=== PATIENT | male | born 1935 | race Caucasian/White ===

== ENCOUNTER 2017-01-26 09:12 | Emergency (ER) | payer OTHER ==
[~2017-01-26] VITALS: Ht 172.7 cm; Wt 81.9 kg
[2017-01-26 09:14] VITALS: TEMP 36.8; Ht 172.7 cm; Wt 81.9 kg
[2017-01-26] MEDS ORDERED: METO25TA3 PO ×2 (10:14)
[2017-01-26] MEDS ORDERED: MULT-190 PO (10:14)
[2017-01-26] MEDS ORDERED: ASPI81TA28 PO (10:14)
[2017-01-26] MEDS ORDERED: POTA1TAB97 PO (10:14)
[2017-01-26] MEDS ORDERED: MULT-513 PO (10:14)
[2017-01-26] MEDS ORDERED: CETI10TA84 PO (10:14)
[2017-01-26] MEDS ORDERED: MOME6000 NAE (10:14)
[2017-01-26] MEDS ORDERED: CRS/10 PO (10:14)
[2017-01-26] MEDS ORDERED: VALS160T58 PO (10:15)
[2017-01-26] MEDS ORDERED: POTA20TA13 PO (10:40)
[2017-01-26 10:46] LABS: BUN/CREATININE RATIO 15.5 (10-20); CREATININE 0.95 mg/dl (0.60-1.40); POTASSIUM 4.2 mmol/L (3.5-5.1)
--- NOTE | 2017-01-26 10:50 | DIAGNOSTIC IMAGING REPORT ---
TWO VIEW CHEST CLINICAL HISTORY: Cough. FINDINGS: PA and lateral chest radiographs are obtained. No prior studies are available for comparison at the time of dictation. The patient is status post midline sternotomy. The heart is enlarged and there is atherosclerotic calcification of the thoracic aorta. The pulmonary vasculature is noncongested. Nonspecific interstitial thickening is noted. There is a nodular subpleural opacity in the left lower lung measuring up to 2.0 cm. The lungs are otherwise clear. No pleural effusion is seen. There is no pneumothorax. The skeletal structures are osteopenic. There are healed right-sided rib fractures. IMPRESSION: 1. Cardiac enlargement without radiographic evidence of congestive failure. 2. There is a 2 cm subpleural opacity in the left lower lung. Although this could represent a mild infectious/inflammatory pneumonitis, neoplasm is the diagnosis of exclusion. Correlation the dedicated chest CT is recommended for further interrogation. 3. The lungs are otherwise clear. No pleural effusion is seen. Electronically signed by: Norman Domingo M.D. 01/26/2017 10:48 AM Dictated Date/Time: 01/26/2017 10:46 AM
[2017-01-26 11:00] LABS: HEMATOCRIT 30.1 % (42-52); MEAN CORPUSCULAR HEMOGLOBIN 26.9 pg (25-34); MEAN CORPUSCULAR HGB CONC 34.9 g/dl (32-36); PLATELET COUNT 60 K/uL (130-400); RED BLOOD COUNT 3.91 M/uL (4.7-6.1); WHITE BLOOD COUNT 2.38 K/uL (4.8-10.8)
[2017-01-26 11:01] LABS: BASO % 0.4 %; BASO ABS # 0.01 K/uL (0-0.2); COMPLETE YES; IG% 0.8 %; LYMPH % 43.3 %; LYMPH ABS # 1.03 K/uL (1.2-3.4); MONO % 16.8 %; NEUT % 38.7 %; PLT ESTIMATE DECREASED; POIKILOCYTOSIS PRESENT
--- NOTE | 2017-01-26 11:53 | DIAGNOSTIC IMAGING REPORT ---
CT SCAN OF THE CHEST WITH IV CONTRAST CLINICAL HISTORY: Cough. Abnormal chest x-ray. COMPARISON STUDY: Chest x-ray dated 01/26/2017. TECHNIQUE: Following the IV administration of 94 cc of Optiray 320, CT scan of the thorax was performed from the thoracic inlet to the upper abdomen. Images are reviewed in the axial, sagittal, and coronal planes. IV contrast was administered without complication. CT DOSE: 459.18 mGycm FINDINGS: Thyroid: Imaged portions of the thyroid gland are normal in size and attenuation. Thoracic aorta: There is atherosclerotic calcification of the thoracic aorta is normal in caliber and demonstrates standard 3-vessel arch anatomy. No dissection is seen. 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 There is approximately 50% stenosis within the right common carotid artery below the thoracic inlet seen on image #44. Pulmonary vasculature: The pulmonary trunk is dilated, measuring 3.2 cm in diameter. This suggests pulmonary artery hypertension. There are no filling defects identified in the central pulmonary vessels to indicate pulmonary embolus. Note that this examination was not protocoled for evaluation of the pulmonary arteries. Heart: The patient is status post midline sternotomy. The heart is enlarged and without pericardial effusion. The coronary arteries are densely calcified. Lungs and pleural spaces: There is biapical scarring and mild emphysematous change. There is no lobar consolidation or pleural effusion. There is a 3.9 x 2.9 cm focus of groundglass opacification in the lingula seen on axial image #150. This corresponds to a round density seen by chest x-ray. An adjacent focus of groundglass opacification is seen in the lingula along the major fissure on image #131 and measures 2.0 cm. This appears to slightly tent the fissure. The right lung appears clear. The trachea and central airways are patent. Mediastinum: There are scattered subcentimeter mediastinal lymph nodes. These are not pathologically enlarged by size criteria. Willow: Clear. Axillae: There is no axillary lymphadenopathy. Upper abdomen: There are numerous calcified gallstones. A small hiatal hernia is observed. There is evidence of hepatic steatosis. Skeletal structures: The skeletal structures are osteopenic. Arthritic change is noted in the shoulders and thoracic spine. No lytic or blastic bony lesions are seen. IMPRESSION: 1. Cardiomegaly and mild emphysema with evidence of pulmonary artery hypertension. 2. There is an approximately 4 x 3 cm groundglass lesion identified in the lingula, and this corresponds to the abnormality seen by chest x-ray. An additional similar-appearing 2.0 cm groundglass adjacent lesion is seen in the lingula and appears to mildly retract the major fissure. Although these lesions could be on an infectious/inflammatory basis the appearance is concerning for low-grade neoplasm. A precautionary 2 month follow-up chest CT is recommended for reassessment. 3. The right lung appears clear. No pleural effusion is seen. 4. There is no mediastinal or hilar adenopathy. 5. Hepatic steatosis and cholelithiasis. Electronically signed by: Norman Domingo M.D. 01/26/2017 11:52 AM Dictated Date/Time: 01/26/2017 11:43 AM
--- NOTE | 2017-01-26 12:15 | EMERGENCY ROOM VISIT NOTE ---
ED Visit Note First contact with patient: 12:02 This Patient was discussed with the physician Otolaryngology Surgeon, Yesenia Bailey PA-C. The pertinent historical and physical exam findings were confirmed. I agree with the studies ordered and with the interpretations of these studies. I agree with the disposition and care plan.
[2017-01-26] MEDS ORDERED: CEFTRIAXONE SOD INJ 1 GM ADDVIAL IV STA (12:21)
[2017-01-26] MEDS ORDERED: LEVAQUIN 750MG / 150ML D5W IV STA (12:44)
[2017-01-26] MEDS ORDERED: LEVO-18 PO (13:13)
--- NOTE | 2017-01-26 13:14 | EMERGENCY ROOM VISIT NOTE ---
History First contact with patient: 09:35 Chief Complaint: COUGH Stated Complaint: COUGH X 2 WKS Nursing Triage Summary: Dry, hacky cough for approx 2 weeks, saw FMD last week, Z-lucas and cough medicine with no relief. Has to sleep upright in chair. Dyspneic on exertion. Denies CP. Hx of CABG and low platelets History of Present Illness The patient is a 81 year old male who presents to the Emergency Room with complaints of a dry, hacking cough for the past 2 weeks. The patient has had a persistent cough which is worse when he lays down for bed. He was seen by his primary care provider last week and prescribed Robitussin with codeine and a Z- Lucas. He finished this antibiotic without any relief. The patient is a former smoker and quit over 35 years ago. The patient states it does become hard to catch his breath when he has a coughing fit. He also occasionally has shortness of breath with walking around. He denies any earaches, sore throat, chest pain, or vomiting. He denies any fevers/chills. The patient has a history of a coronary artery bypass graft and pancytopenia. Review of Systems A complete 10 point review of systems was reviewed with the patient with pertinent positives and negatives as per history of present illness. All else were negative. Social History Smoking Status: Former Smoker Current/Historical Medications Scheduled Aspirin (Aspirin Ec), 81 MG PO WK Cetirizine (Zyrtec), 10 MG PO DAILY Levofloxacin (Levaquin), 1 TAB PO DAILY Metoprolol Succinate (Toprol Xl), 25 MG PO HS Metoprolol Succinate (Toprol Xl), 12.5 MG PO QAM Mometasone Furoate (Nasal) (Mometasone Furoate), 2 SPRAYS ISIS DAILY Multivitamins/Minerals (Mvi With Minerals), 1 TAB PO DAILY Ocuvite Preservision (Ocuvite Preservision), 1 TAB PO DAILY Potassium Chloride Microencaps (Potassium Chloride Er), 20 MEQ PO BID Rosuvastatin Calcium (Crestor), 10 MG PO HS Valsartan/Hctz (Diovan Hct 160MG/12.5MG), 1 TAB PO DAILY Allergies Coded Allergies: CHAZ Inhibitors (Unverified Allergy, Severe, COUGH, 01/26/17) Penicillins (Verified Allergy, Severe, HIVES, 01/26/17) Patient reported red, itchy rash that manifested within 1 hour of receiving an injection of Penicillin many many years ago. Denied receiving any penicillin or cephalosporin since that time. Tetanus Toxoid (Unverified Allergy, Severe, SWELLING, 01/26/17) Physical Exam Vital Signs Date Time Temp Pulse Resp B/P Pulse Ox O2 Delivery O2 Flow Rate FiO2 01/26/17 13:54 65 16 159/73 96 Room Air 01/26/17 12:32 60 16 179/101 96 Room Air 01/26/17 10:51 66 16 176/80 96 Room Air 01/26/17 09:53 94 Room Air 01/26/17 09:14 36.8 70 18 187/81 96 Room Air Physical Exam VITALS: Vitals are noted on the nurse's note and reviewed by myself. Vital signs stable. GENERAL: This is an 81-year-old female, in no acute distress, nondiaphoretic, well-developed well-nourished. HEENT: Normocephalic. PERRLA. EOMI. Nares patent. Mucous membranes moist. Neck is supple without nuchal rigidity. HEART: Regular rate and rhythm without murmurs gallops or rubs. LUNGS: Clear to auscultation bilaterally without wheezes, rales or rhonchi. NEURO: Patient was alert and oriented to person place and time. Medical Decision & Procedures ER Provider Diagnostic Interpretation: TWO VIEW CHEST IMPRESSION: 1. Cardiac enlargement without radiographic evidence of congestive failure. 2. There is a 2 cm subpleural opacity in the left lower lung. Although this could represent a mild infectious/inflammatory pneumonitis, neoplasm is the diagnosis of exclusion. Correlation the dedicated chest CT is recommended for further interrogation. 3. The lungs are otherwise clear. No pleural effusion is seen. CT SCAN OF THE CHEST WITH IV CONTRAST IMPRESSION: 1. Cardiomegaly and mild emphysema with evidence of pulmonary artery hypertension. 2. There is an approximately 4 x 3 cm groundglass lesion identified in the lingula, and this corresponds to the abnormality seen by chest x-ray. An additional similar-appearing 2.0 cm groundglass adjacent lesion is seen in the lingula and appears to mildly retract the major fissure. Although these lesions could be on an infectious/inflammatory basis the appearance is concerning for low-grade neoplasm. A precautionary 2 month follow-up chest CT is recommended for reassessment. 3. The right lung appears clear. No pleural effusion is seen. 4. There is no mediastinal or hilar adenopathy. 5. Hepatic steatosis and cholelithiasis. Laboratory Results 01/26/17 10:20 Red Blood Count 3.91, Mean Corpuscular Volume 77.0, Mean Corpuscular Hemoglobin 26.9, Mean Corpuscular Hemoglobin Concent 34.9, Neutrophils (%) (Auto) 38.7, Lymphocytes (%) (Auto) 43.3, Monocytes (%) (Auto) 16.8, Eosinophils (%) (Auto) 0.0, Basophils (%) (Auto) 0.4, Neutrophils # (Auto) 0.92, Lymphocytes # (Auto) 1.03, Monocytes # (Auto) 0.40, Eosinophils # (Auto) 0.00, Basophils # (Auto) 0.01 01/26/17 10:20 Test 01/26/17 10:20 White Blood Count 2.38 K/uL (4.8-10.8) Red Blood Count 3.91 M/uL (4.7-6.1) Hemoglobin 10.5 g/dL (14.0-18.0) Hematocrit 30.1 % (42-52) Mean Corpuscular Volume 77.0 fL (80-100) Mean Corpuscular Hemoglobin 26.9 pg (25-34) Mean Corpuscular Hemoglobin Concent 34.9 g/dl (32-36) Platelet Count 60 K/uL (130-400) Neutrophils (%) (Auto) 38.7 % Lymphocytes (%) (Auto) 43.3 % Monocytes (%) (Auto) 16.8 % Eosinophils (%) (Auto) 0.0 % Basophils (%) (Auto) 0.4 % Neutrophils # (Auto) 0.92 K/uL (1.4-6.5) Lymphocytes # (Auto) 1.03 K/uL (1.2-3.4) Monocytes # (Auto) 0.40 K/uL (0.11-0.59) Eosinophils # (Auto) 0.00 K/uL (0-0.5) Basophils # (Auto) 0.01 K/uL (0-0.2) RDW Standard Deviation 42.7 fL (36.4-46.3) RDW Coefficient of Variation 15.4 % (11.5-14.5) Immature Granulocyte % (Auto) 0.8 % Immature Granulocyte # (Auto) 0.02 K/uL (0.00-0.02) Hypogranular Neutrophils 1+ Platelet Estimate DECREASED Poikilocytosis PRESENT Anion Gap 7.0 mmol/L (3-11) Est Creatinine Clear Calc Drug Dose 60.0 ml/min Estimated GFR () 87.3 Estimated GFR (Non- 75.3 BUN/Creatinine Ratio 15.5 (10-20) Calcium Level 9.0 mg/dl (8.5-10.1) Total Bilirubin 0.6 mg/dl (0.2-1) Aspartate Amino Transf (AST/SGOT) 27 U/L (15-37) Alanine Aminotransferase (ALT/SGPT) 31 U/L (12-78) Alkaline Phosphatase 115 U/L (45-117) Total Protein 8.2 gm/dl (6.4-8.2) Albumin 4.0 gm/dl (3.4-5.0) Globulin 4.2 gm/dl (2.5-4.0) Albumin/Globulin Ratio 1.0 (0.9-2) Medications Administered Medications (Trade) Dose Ordered Sig/Alexandrea Route Start Time Stop Time Status Last Admin Dose Admin Levofloxacin (Levaquin / D5W) 750 mg NOW STAT IV 01/26/17 12:44 01/26/17 12:46 DC 01/26/17 13:01 750 MG Medical Decision Differential diagnosis includes pneumonia, COPD, neoplasm, among others. The patient is an 81-year-old male who presents today complaining of call for the past 2 weeks. Labs revealed a pancytopenia and neutropenia. Records were obtained from the patient's most recent hematology visit and his labs today are similar to previous. Chest x-ray did show what appears to be an inflammatory process within the left middle lobe. However, CT scan of the chest was recommended for further clarification. CT was performed and confirmed these findings. I think this is likely an inflammatory process, although the patient will certainly need close follow-up with his primary care provider for repeat testing. The patient's vital signs were within normal limits and oxygen saturations were around 96% on room air throughout his stay. I did offer the patient admission but he prefers to be discharged home. Will be placed on Levaquin at the recommendation of the ED pharmacist. He was given dose of IV Levaquin prior to discharge. He should return here for any worsening symptoms or new/concerning symptoms. The patient was independently evaluated by Dr. Kaur, ED attending physician, who agreed with my assessment and treatment plan. Based on the patient's presentation and work up, I feel the patient is stable for outpatient treatment. The patient was educated to return to the emergency department for any worsening of their current condition or new/concerning symptoms. The patient will follow up with his primary care provider this week. Impression Primary Impression: Lingular pneumonia Additional Impression: Cough Departure Information Dispostion Home / Self-Care Condition GOOD Prescriptions Levofloxacin (LEVAQUIN) 750 Mg Tab 1 TAB PO DAILY for 7 Days, #7 TAB Prov: Yesenia Bailey .JOANNE 01/26/17 Referrals Hoang Ramos D.O. (PCP) Forms HOME CARE DOCUMENTATION FORM, IMPORTANT VISIT INFORMATION Patient Instructions My [facility] Additional Instructions You were prescribed Levaquin to be taken daily for 7 days. This is an antibiotic. All antibiotics have the potential to cause diarrhea. Stop this medication and contact a medical provider if you were to develop any significant adverse side effects including: wheezing, shortness of breath, passing out, vomiting, or a diffuse rash. Always take antibiotics as directed and COMPLETE the ENTIRE course regardless of the improvement of your symptoms. You need to follow-up with your primary care within 48 hours. You should have a repeat chest x-ray after the course of antibiotics. You also may need a repeat chest CT scan in a few months. Return to the emergency Department sooner if there is worsening shortness of breath, fevers or any other new/concerning symptoms. Problem Qualifiers
[2017-01-26 13:54] VITALS: BP 159/73; PULSE 65; O2SAT 96
== END 2017-01-26 15:05 | disposition home or self-care (01) ==
LOC: C.EDB 09:13
DX: J18.8 Other pneumonia, unspecified organism (principal); R05 Cough; Z79.82 Long term (current) use of aspirin; Z79.899 Other long term (current) drug therapy; Z87.891 Personal history of nicotine dependence

== ENCOUNTER → 2017-02-14 | Outpatient (CLI) | payer OTHER ==
[~2017-02-14] MED LIST: ASPI81TA28 PO; CETI10TA84 PO; CRS/10 PO; METO25TA3 PO; MOME6000 NAE; MULT-190 PO; MULT-513 PO; POTA20TA13 PO; VALS160T58 PO
--- NOTE | 2017-02-14 12:26 | DIAGNOSTIC IMAGING REPORT ---
VIDEO SWALLOW HISTORY: Pneumonia. Assess for aspiration. TECHNIQUE: Video fluoroscopic evaluation of swallowing was performed in the AP and lateral projections by the speech pathology staff. The patient is fed nectar-thick and thin liquid barium, a barium coated wafer, and barium pudding. FLUOROSCOPY TIME: 2.1 minutes. A cine loop submitted. COMPARISON STUDY: None. FINDINGS: There is normal hyoid excursion and epiglottic deflection. There is a single episode of penetration with the thin liquid barium. However, no evidence for aspiration identified. IMPRESSION: 1. No aspiration identified. 2. Please see the speech pathologist report for detailed findings and recommendations. Electronically signed by: Florian Hernandez M.D. 02/14/2017 12:25 PM Dictated Date/Time: 02/14/2017 12:23 PM
--- NOTE | 2017-02-14 13:15 | SWALLOWING EVALUATION ---
HISTORY: This 81 year-old man, from, was referred for a VFSS at [facility] in order to rule out aspiration. He reports that he feels as though he coughs at times when he takes large bites and eats quickly. The patient has a PMH significant for a cough that was persistent for 2-3 weeks which worsens when in the supine position. Chest CT was done on 01/26/17 showing two ground glass lesions in the left lung suspicious for neoplasm, but could be infectious process. Currently the patient's diet level is regular. PROCEDURE: The patient was seen in the Radiology Department of [facility] for the VFSS. Cursory examination of the oral cavity revealed upper and lower dentures. Movement of the articulators was WNL. The patient was seated on a stool and was viewed in both the Anterior-Posterior (A-P) and Lateral planes. Volitional phonation exercises completed in the A-P plane revealed bilateral vocal fold movement and vocal intensity within functional limits. In the lateral plane, the patient was given the following boluses: 1 tsp. thin liquid barium x 2, single swallow thin liquid barium self-presented from a cup, sequential swallows of thin liquid barium self-presented from a cup, 1 tsp. nectar-thick liquid barium, single swallow nectar-thick liquid barium self-presented from a cup, 1 tsp. barium pudding, and 1 club cracker with barium paste. The patient was then repositioned into the A-P plane and given the following boluses: 1 tsp. nectar-thick liquid barium and 1 tsp. barium pudding. RESULTS: Oral Stage: There was no labial escape evident during the oral phase of the swallow. Tongue has control of the bolus between the tongue and the palate. Masticate was mildly slow. Patient displayed delayed initiation of tongue motion, but once started the bolus was swallowed normally. There was residue in the oral cavity along the tongue and palate after the swallow. Pharyngeal swallow was slightly delayed with the bolus head in the valleculae when swallow was initiated. Pharyngeal Stage: Soft palate elevation was normal with no bolus escaping between the soft palate and pharyngeal wall. Laryngeal elevation displayed partial superior movement of thyroid cartilage. Hyoid excursion showed partial anterior movement. The epiglottis showed completed inversion. The laryngeal vestibule showed incomplete closure at the height of the swallow, evident in an occurrence of penetration of thin liquids. The pharyngeal stripping wave was complete. A/P view showed complete pharyngeal contraction. Pharyngoesophageal segment opening showed partial distension with partial obstruction of flow. Tongue base showed trace amount of contrast between the base and posterior pharyngeal wall. Residue remained in the pyriform sinuses after the swallow. There was no evidence of aspiration during the study. Laryngeal penetration noted was due to the patient's delayed swallow. Retention in the pyriforms cleared with a dry swallow or a liquid wash. Esophageal Stage: Patient showed complete clearance of the bolus through the esophagus. SUMMARY/RECOMMENDATIONS: This patient presents with normal oral-pharyngeal swallowing. The patient does not present with s/s esophageal dysfunction. The patient's delayed swallow, reduction of hyolaryngeal movement and hyoid elevation is considered to be within normal limits for the patient's age. The following is recommended: 1. Regular diet. 2. Patient should alternate bites of food with sips of liquid to help clear bolus through the pharyngoesophageal segment opening. A summary of the results and recommendations was discussed with patient and understanding was verbalized with the patient immediately following the study. Thank you for referral of this patient. Please contact me at if any additional information is needed. Katerina Jalloh B.A. Corporate Security Manager Clinician
--- NOTE | 2017-02-21 10:12 | CODING QUERY MEDICAL NECESSITY ---
SUPPORTING DIAGNOSIS NEEDED A supporting diagnosis is required for the test/procedure performed on this patient in order for us to be reimbursed by the patient's insurance. Please provide a supporting diagnosis for the following test/procedure listed below next to the test name along with your signature. *If there is no additional diagnosis for this patient that would support the following test/procedure please document that below next to the test/procedure. Test(s)/Procedure(s) that require a supporting diagnosis: * VIDEO SWALLOW DIAGNOSIS: Provider Signature: Date: Thank you Katie [employer] Information Management Once completed, please kindly fax back to [phone] For questions please call [phone]
== END | disposition home or self-care (01) ==
LOC: C.RAD 11:10
PROVIDERS: ATTEND Family Medicine
DX: J18.9 Pneumonia, unspecified organism (principal)

== ENCOUNTER → 2017-03-24 | Outpatient (CLI) | payer OTHER ==
--- NOTE | 2017-03-24 09:45 | DIAGNOSTIC IMAGING REPORT ---
(CHEST) THORAX WITHOUT CLINICAL HISTORY: R91.8 Pulmonary nodules COMPARISON STUDY: 01/26/2017 CT DOSE: 283.00 mGy.cm TECHNIQUE: CT of the thorax was performed from the thoracic inlet to the lung bases. Images are reviewed in the axial, sagittal, and coronal planes. IV contrast was not administered for this examination. A dose lowering technique was utilized adhering to the principles of ALARA. FINDINGS: Thyroid: Imaged portions of the thyroid gland are normal in appearance. Thoracic aorta: The thoracic aorta is normal in course and caliber, noting standard 3 vessel arch anatomy. Heart: There are coronary artery calcifications present. Lungs and pleural spaces: There is interval decrease in the size of a mixed solid and groundglass lingular opacity currently measuring 2 cm. Adjacent to this is a second groundglass opacity measuring 1 cm. This is also smaller than the prior study. The interval decrease in the size of these lesions, strongly favor a resolving inflammatory process. A 6 month follow-up CT scan would seem prudent. No new or enlarging pulmonary nodules are visualized. Mediastinum: There is a paratracheal lymph node the upper limits of normal in size. This remains unchanged the prior study Willow: There is no evidence of pathologic hilar adenopathy given the limitations of a noncontrast study Axilla: Clear. Upper abdomen: Cholelithiasis Skeletal structures: There are no lytic or blastic osseous lesions. IMPRESSION: 1. Interval decrease in the size of the lingular airspace opacities. This strongly favors a resolving inflammatory process. A 6 month follow-up CT scan would seem prudent. Electronically signed by: Prabhjot Melgoza M.D. 03/24/2017 9:44 AM Dictated Date/Time: 03/24/2017 9:38 AM
== END | disposition home or self-care (01) ==
LOC: C.CTS 09:29
PROVIDERS: ATTEND Physician Assistant
DX: R91.8 Other nonspecific abnormal finding of lung field (principal)

== ENCOUNTER 2017-12-30 10:18 | Emergency (ER) | payer OTHER ==
[~2017-12-30] VITALS: Ht 172.7 cm; Wt 79.7 kg
[~2017-12-30 10:18] MED LIST changes: -ASPI81TA28 PO; -METO25TA3 PO; +METO25TA4 PO
[2017-12-30 10:19] VITALS: TEMP 37.4; Ht 172.7 cm; Wt 79.7 kg
[2017-12-30] MEDS ORDERED: SODIUM CHLORIDE 0.9% 1000ML 1,000 ML IV STA (10:53)
[2017-12-30 11:44] LABS: ALBUMIN 3.6 gm/dl (3.4-5.0); CALCIUM 8.9 mg/dl (8.5-10.1); CREATININE 1.11 mg/dl (0.60-1.40); POTASSIUM 3.3 mmol/L (3.5-5.1)
[2017-12-30 11:47] LABS: TOTAL PROTEIN 7.8 gm/dl (6.4-8.2)
[2017-12-30 11:57] LABS: HEMATOCRIT 25.7 % (42-52); HEMOGLOBIN 8.9 g/dL (14.0-18.0); MEAN CELL VOLUME 74.5 fL (80-100); MEAN CORPUSCULAR HEMOGLOBIN 25.8 pg (25-34); MEAN CORPUSCULAR HGB CONC 34.6 g/dl (32-36); PLATELET COUNT 36 K/uL (130-400); RED CELL DISTRIBUTION WIDTH CV 17.7 % (11.5-14.5); RED CELL DISTRIBUTION WIDTH SD 46.8 fL (36.4-46.3)
[2017-12-30 11:58] LABS: IG# 0.05 K/uL (0.00-0.02); LYMPH % 23.4 %; LYMPH ABS # 0.75 K/uL (1.2-3.4); MONO % 16.9 %; MONO ABS # 0.54 K/uL (0.11-0.59); NEUT % 58.1 %; NEUT ABS # 1.86 K/uL (1.4-6.5)
--- NOTE | 2017-12-30 12:16 | DIAGNOSTIC IMAGING REPORT ---
ABDOMEN 2VIEW W/PA CHEST RTN HISTORY: 82 years-old Male ABDOMINAL PAIN/GI acute generalized abdominal pain with diarrhea COMPARISON: Chest CT 03/24/2017, chest radiograph 01/26/2017 TECHNIQUE: PA view of the chest with erect and supine views of the abdomen FINDINGS: Cardiomediastinal and hilar silhouettes are within normal limits. Atherosclerosis of the aorta. Prior sternotomy. There is mild biapical pleural-parenchymal scarring without pneumothorax, pleural effusion, focal airspace consolidation or overt pulmonary edema. Degenerative changes are seen within the shoulders and spine. Healed remote fracture deformity of the posterolateral right eighth rib. Cholelithiasis. Moderate gaseous distention of the colon with loops measuring up to 8.5 cm transversely. There is no evidence of small bowel obstruction, pneumatosis or pneumoperitoneum. No definite urolith identified, however the renal shadows are obscured by bowel gas. Brachytherapy seeds of the prostate. Calcifications of the pelvis suggest phleboliths. Degenerative changes of the spine, pelvis and hips. IMPRESSION: 1. Moderate gaseous distention of the colon without evidence of small bowel obstruction. These findings may reflect colonic ileus. 2. Cholelithiasis. 3. No acute process of the chest. The above report was generated using voice recognition software. It may contain grammatical, syntax or spelling errors. Electronically signed by: Vitaly Clement M.D. 12/30/2017 12:15 PM Dictated Date/Time: 12/30/2017 12:12 PM
[2017-12-30] MEDS ORDERED: POTASSIUM CHLORIDE 10 MEQ TABCR PO STA (12:53)
--- NOTE | 2017-12-30 12:53 | EMERGENCY ROOM VISIT NOTE ---
History Report prepared by Yani: Tiffanie Coello Under the Supervision of: Dr. Dwaine Rdz D.O. First contact with patient: 10:47 Chief Complaint: DIARRHEA Stated Complaint: DIARRHEA History of Present Illness The patient is a 82 year old male who presents to the Emergency Room with complaints of persistent diarrhea that began 13 days ago. His wive reports that on the of the month he was diagnosed with a head cold. She states that 4 days later, the patient began experiencing diarrhea. On the , he saw his PCP , who told him that his potassium was low. His PCP recommended the patient come to the Emergency Department to be further evaluation of his diarrhea and dehydration.The patient reports some left sided abdominal pain, noting that he has been taking Pepto Bismol to relieve his symptoms. Source of History: patient Onset: 13 days ago Position: other (gastrointestinal) Quality: other (diarrhea) Timing: other (persistent) Associated Symptoms: + abdominal pain (left sided) Review of Systems See HPI for pertinent positives & negatives. A total of 10 systems reviewed and were otherwise negative. Past Medical & Surgical Medical Problems: (1) Hypercholesteremia (2) Hypertension (3) Neutropenia (4) Pancytopenia Family History Patient reports no known family medical history. Social History Smoking Status: Former Smoker Smokeless Tobacco Use: Unknown Alcohol Use: none Drug Use: none Marital Status: Housing Status: lives with significant other Occupation Status: retired Current/Historical Medications Scheduled Cetirizine (Zyrtec), 10 MG PO DAILY Metoprolol Succinate (Toprol Xl), 25 MG PO HS Metoprolol Succinate (Toprol Xl), 12.5 MG PO QAM Mometasone Furoate (Nasal) (Mometasone Furoate), 2 SPRAYS ISIS DAILY Multivitamins/Minerals (Mvi With Minerals), 1 TAB PO DAILY Ocuvite Preservision (Ocuvite Preservision), 1 TAB PO DAILY Potassium Chloride Microencaps (Potassium Chloride Er), 20 MEQ PO BID Rosuvastatin Calcium (Crestor), 10 MG PO HS Valsartan/Hctz (Diovan Hct 160MG/12.5MG), 1 TAB PO DAILY Allergies Coded Allergies: CHAZ Inhibitors (Unverified Allergy, Severe, COUGH, 12/24/17) Penicillins (Verified Allergy, Severe, HIVES, 12/24/17) Patient reported red, itchy rash that manifested within 1 hour of receiving an injection of Penicillin many many years ago. Denied receiving any penicillin or cephalosporin since that time. Tetanus Toxoid (Unverified Allergy, Severe, SWELLING, 12/24/17) Erythromycin (Unverified Adverse Reaction, Severe, DIARRHEA, 12/30/17) Physical Exam Vital Signs Date Time Temp Pulse Resp B/P (MAP) Pulse Ox O2 Delivery O2 Flow Rate FiO2 12/30/17 13:12 71 18 153/72 96 Room Air 12/30/17 12:29 64 16 136/80 Room Air 12/30/17 12:08 73 18 181/65 99 Room Air 12/30/17 10:19 37.4 66 18 146/61 97 Room Air Physical Exam CONSTITUTIONAL/VITAL SIGNS: Reviewed / noted above. GENERAL: Non-toxic in appearance. INTEGUMENTARY: Warm, dry, and [place]. HEAD: Normocephalic. EYES: without scleral icterus or trauma. ENT/OROPHARYNX: clear and moist. LYMPHADENOPATHY/NECK: Is supple without lymphadenopathy or meningismus. RESPIRATORY: Lungs clear and equal. CARDIOVASCULAR: Regular rate and rhythm. GI/ABDOMEN: Bowel sounds are tinkling and distant. Soft and nontender. No organomegaly or pulsatile mass. No rebound or guarding. EXTREMITIES: Warm and well perfused. BACK: No CVA tenderness. NEUROLOGICAL: Intact without focal deficits. PSYCHIATRIC: normal affect. MUSCULOSKELETAL: Normally developed with good muscle tone. Medical Decision & Procedures ER Provider Diagnostic Interpretation: Radiology results as stated below per my review and radiologist interpretation: ABDOMEN 2VIEW W/PA CHEST RTN HISTORY: 82 years-old Male ABDOMINAL PAIN/GI acute generalized abdominal pain with diarrhea COMPARISON: Chest CT 03/24/2017, chest radiograph 01/26/2017 TECHNIQUE: PA view of the chest with erect and supine views of the abdomen FINDINGS: Cardiomediastinal and hilar silhouettes are within normal limits. Atherosclerosis of the aorta. Prior sternotomy. There is mild biapical pleural-parenchymal scarring without pneumothorax, pleural effusion, focal airspace consolidation or overt pulmonary edema. Degenerative changes are seen within the shoulders and spine. Healed remote fracture deformity of the posterolateral right eighth rib. Cholelithiasis. Moderate gaseous distention of the colon with loops measuring up to 8.5 cm transversely. There is no evidence of small bowel obstruction, pneumatosis or pneumoperitoneum. No definite urolith identified, however the renal shadows are obscured by bowel gas. Brachytherapy seeds of the prostate. Calcifications of the pelvis suggest phleboliths. Degenerative changes of the spine, pelvis and hips. IMPRESSION: 1. Moderate gaseous distention of the colon without evidence of small bowel obstruction. These findings may reflect colonic ileus. 2. Cholelithiasis. 3. No acute process of the chest. The above report was generated using voice recognition software. It may contain grammatical, syntax or spelling errors. Electronically signed by: Vitaly Clement M.D. 12/30/2017 12:15 PM Dictated Date/Time: 12/30/2017 12:12 PM Laboratory Results 12/30/17 11:10 Red Blood Count 3.45, Mean Corpuscular Volume 74.5, Mean Corpuscular Hemoglobin 25.8, Mean Corpuscular Hemoglobin Concent 34.6, Neutrophils (%) (Auto) 58.1, Lymphocytes (%) (Auto) 23.4, Monocytes (%) (Auto) 16.9, Eosinophils (%) (Auto) 0.0, Basophils (%) (Auto) 0.0, Neutrophils # (Auto) 1.86, Lymphocytes # (Auto) 0.75, Monocytes # (Auto) 0.54, Eosinophils # (Auto) 0.00, Basophils # (Auto) 0.00 12/30/17 11:10 Test 12/30/17 11:10 12/30/17 12:10 White Blood Count 3.20 K/uL (4.8-10.8) Red Blood Count 3.45 M/uL (4.7-6.1) Hemoglobin 8.9 g/dL (14.0-18.0) Hematocrit 25.7 % (42-52) Mean Corpuscular Volume 74.5 fL (80-100) Mean Corpuscular Hemoglobin 25.8 pg (25-34) Mean Corpuscular Hemoglobin Concent 34.6 g/dl (32-36) Platelet Count 36 K/uL (130-400) Neutrophils (%) (Auto) 58.1 % Lymphocytes (%) (Auto) 23.4 % Monocytes (%) (Auto) 16.9 % Eosinophils (%) (Auto) 0.0 % Basophils (%) (Auto) 0.0 % Neutrophils # (Auto) 1.86 K/uL (1.4-6.5) Lymphocytes # (Auto) 0.75 K/uL (1.2-3.4) Monocytes # (Auto) 0.54 K/uL (0.11-0.59) Eosinophils # (Auto) 0.00 K/uL (0-0.5) Basophils # (Auto) 0.00 K/uL (0-0.2) RDW Standard Deviation 46.8 fL (36.4-46.3) RDW Coefficient of Variation 17.7 % (11.5-14.5) Immature Granulocyte % (Auto) 1.6 % Immature Granulocyte # (Auto) 0.05 K/uL (0.00-0.02) Platelet Estimate SIGNIFIC DECREASED Giant Platelets 2+ Poikilocytosis PRESENT Microcytosis PRESENT Ovalocytes 1+ Schistocytes 1+ Anion Gap 4.0 mmol/L (3-11) Est Creatinine Clear Calc Drug Dose 50.5 ml/min Estimated GFR () 71.8 Estimated GFR (Non- 61.9 BUN/Creatinine Ratio 15.5 (10-20) Calcium Level 8.9 mg/dl (8.5-10.1) Total Bilirubin 0.9 mg/dl (0.2-1) Direct Bilirubin 0.3 mg/dl (0-0.2) Aspartate Amino Transf (AST/SGOT) 19 U/L (15-37) Alanine Aminotransferase (ALT/SGPT) 24 U/L (12-78) Alkaline Phosphatase 93 U/L (45-117) Total Protein 7.8 gm/dl (6.4-8.2) Albumin 3.6 gm/dl (3.4-5.0) Urine Color YELLOW Urine Appearance CLEAR (CLEAR) Urine pH 5.5 (4.5-7.5) Urine Specific [place] 1.010 (1.000-1.030) Urine Protein NEG (NEG) Urine Glucose (UA) NEG (NEG) Urine Ketones NEG (NEG) Urine Occult Blood NEG (NEG) Urine Nitrite NEG (NEG) Urine Bilirubin NEG (NEG) Urine Urobilinogen NEG (NEG) Urine Leukocyte Esterase NEG (NEG) Urine WBC (Auto) 0 /hpf (0-5) Urine RBC (Auto) 0-4 /hpf (0-4) Urine Hyaline Casts (Auto) 1-5 /lpf (0-5) Urine Epithelial Cells (Auto) 0-5 /lpf (0-5) Urine Bacteria (Auto) NEG (NEG) Date/Time Source Procedure Growth Status 12/30/17 11:18 Stool C.difficile Toxin B Gene (PCR) - Final No C. difficile toxin B gene detected Complete Laboratory results as stated above per my review. Medications Administered Medications (Trade) Dose Ordered Sig/Alexandrea Route Start Time Stop Time Status Last Admin Dose Admin Sodium Chloride 1,000 ml @ 999 mls/hr Q1H1M STAT IV 12/30/17 10:53 12/30/17 11:53 DC 12/30/17 11:23 999 MLS/HR Potassium Chloride (Klor-Con M10) 40 meq NOW STAT PO 12/30/17 12:53 12/30/17 12:56 DC 12/30/17 13:12 40 MEQ ED Course 1048: Previous medical records were reviewed. The patient was evaluated in room C5. A complete history and physical examination was performed. 1053: Ordered Sodium Chloride 1000ml @ 999 mls/hr IV. 1253: Ordered Potassium Chloride 40meq PO. 1308: On reevaluation, the patient is resting. I discussed the results and findings with the patient. He verbalized agreement of the treatment plan. The patient was discharged home. Medical Decision Differential diagnosis: Etiologies such as gastroenteritis, food borne illness, infections, appendicitis , diverticulitis, inflammatory bowel disease, obstruction, GI bleed, biliary pathology, as well as others were entertained. This is an 82-year-old male who presents to the ED with a chief complaint of diarrhea. The patient's diarrhea started on the , 13 days ago. It started after taking 4 days worth of Zithromax for an upper respiratory infection. The patient was seen in the emergency department on the . At that time his stool cultures and C. difficile was negative. The patient has continued to have diarrhea despite using Imodium and Pepto-Bismol. The patient also was found to have pancytopenia and was following up with Dr. Spivey. The patient has some occasional bowel cramps but otherwise has no significant symptoms. He had several episodes of diarrhea overnight and once this morning. The patient came to the ED for reevaluation because of the continued diarrhea. His physical exam revealed some distant tinkling bowel sounds but otherwise was soft and nontender. He is in no distress. His hemoglobin is 8.9. On the it was 9.2. He did receive Procrit [address] Spivey. This is near his baseline. His potassium today is 3.3. Urine did not show infection and C. difficile was negative. Chest x-ray did not show acute process. Abdominal x- ray reveals gaseous distention of the colon suggesting colonic ileus. The patient was given some IV fluids and oral potassium. He did not have any diarrhea while here. He was told the results. I did recommend following up with a GI specialist for further evaluation. He is felt to be stable for discharge and outpatient follow-up. GI referral provided. Medication Reconcilliation Current Medication List: was personally reviewed by me Blood Pressure Screening Patient's blood pressure: Normal blood pressure Blood pressure disposition: Did not require urgent referral Impression Primary Impression: Diarrhea Scribe Attestation The scribe's documentation has been prepared under my direction and personally reviewed by me in its entirety. I confirm that the note above accurately reflects all work, treatment, procedures, and medical decision making performed by me. Departure Information Dispostion Home / Self-Care Referrals Hoang Ramos D.O. (PCP) Iraj Dietrich M.D. Forms HOME CARE DOCUMENTATION FORM, IMPORTANT VISIT INFORMATION, WORK / SCHOOL INSTRUCTIONS Patient Instructions Diarrhea, My [facility] Additional Instructions Follow-up with Dr. Dietrich, GI specialist, from [facility]. Call today or Tuesday for appointment.
[2017-12-30 13:53] VITALS: BP 148/63; PULSE 74; O2SAT 94
== END 2017-12-30 13:54 | disposition home or self-care (01) ==
LOC: C.EDB 10:18 → C.EDC 13:54
DX: R19.7 Diarrhea, unspecified (principal); E78.00 Pure hypercholesterolemia, unspecified; I10 Essential (primary) hypertension; Z79.899 Other long term (current) drug therapy; Z87.891 Personal history of nicotine dependence; Z88.0 Allergy status to penicillin; Z88.7 Allergy status to serum and vaccine; Z88.8 Allergy status to other drugs, medicaments and biological substances

== ENCOUNTER → 2018-03-27 | Outpatient (CLI) | payer OTHER ==
[~2018-03-27] MED LIST changes: +[UNRECOGNIZED DRUG - CODE] SC
--- NOTE | 2018-03-27 11:43 | DIAGNOSTIC IMAGING REPORT ---
(CHEST) THORAX WITHOUT CT DOSE: 168.38 mGy.cm CLINICAL HISTORY: 82 years-old Male with R91.8 Pulmonary nodulesappt 03-27-18 @12:00 E X0D E [id number]. Follow-up study in a patient with history of pulmonary nodules TECHNIQUE: Multiaxial CT images of the chest were performed without contrast. A dose lowering technique was utilized adhering to the principles of ALARA. COMPARISON: CT chest 03/24/2017. FINDINGS: No dominant thyroid nodule identified. Mildly prominent paratracheal and subcarinal lymph nodes are again seen measuring up to 7 mm. These are likely reactive. Heart is mildly enlarged. Coronary arterial, mitral and aortic annular calcifications are present. Capillary muscle calcifications of the left ventricle are also seen. Prior median sternotomy with CABG. Moderate atherosclerosis of the thoracic aorta without aneurysm. Mild dilation of the main pulmonary artery measuring up to 3.3 cm transversely may reflect pulmonary arterial hypertension. No pneumothorax or pleural effusion. There is improved aeration of the inferior segment lingula with resolution of the previously described subsegmental airspace opacities. Subsegmental groundglass opacities of the bilateral lung bases suggest atelectasis. Minimal subsegmental atelectasis/scarring at the lateral basal segment left lower lobe adjacent to the major fissure suggesting pleural parenchymal scarring. There are no suspicious pulmonary nodules or masses. Ill-defined subsegmental groundglass opacities of the right upper lobe, image 59 series 5 appear new. Evaluation of the lung parenchyma is limited secondary to respiratory motion. Ill-defined ground glass opacities are also noted about the lateral segment right middle lobe. Central airways are patent. Gaseous distention of the colon. No acute process of the imaged upper abdomen. Cholelithiasis with contracted gallbladder. Soft tissues are within normal limits. The bones appear to be intact. Multilevel spondylitic spurring of the spine. Degenerative changes are seen within the bilateral shoulders. IMPRESSION: 1. Improved aeration of the inferior segment lingula from comparison with resolution of the previously described irregular airspace opacities. 2. Subtle subsegmental groundglass opacities about the right upper and middle lobes may reflect areas of mild pneumonitis. No suspicious pulmonary nodules or masses identified. 3. Cardiomegaly with prior median sternotomy and CABG. 4. Mild dilation of the main pulmonary artery may reflect pulmonary arterial hypertension within the appropriate clinical setting. 5. Cholelithiasis. Electronically signed by: Vitaly Clement M.D. 03/27/2018 11:41 AM Dictated Date/Time: 03/27/2018 11:35 AM
== END | disposition home or self-care (01) ==
LOC: C.CTS 11:03
PROVIDERS: ATTEND Physician Assistant
DX: R91.8 Other nonspecific abnormal finding of lung field (principal); I51.7 Cardiomegaly; K80.20 Calculus of gallbladder without cholecystitis without obstruction

== ENCOUNTER 2019-09-18 18:53 | Inpatient (IN) ==
[2019-09-18] MEDS ORDERED: SODIUM CHLORIDE 0.9% 1000ML 1,000 ML IV SCH (19:15)
[2019-09-18 20:19] LABS: Alanine Aminotransferase 23 U/L (12-78); Albumin Level 3.6 gm/dl (3.4-5.0); Aspartate Aminotransferase 20 U/L (15-37); BUN Creatinine Ratio 21.2 (10-20); Blood Urea Nitrogen 18 mg/dl (7-18); Carbon Dioxide 27 mmol/L (21-32); Chloride 105 mmol/L (98-107); Creatinine Clr Calc Pharmacy 62.8 ml/min; Est GFR (African American) 93.8; Glucose 128 mg/dl (70-99); Sodium 136 mmol/L (136-145)
[2019-09-18 20:28] LABS: Albumin Globulin Ratio 0.7 (0.9-2); Alkaline Phosphatase 113 U/L (45-117); Bilirubin,Total 1.1 mg/dl (0.2-1); Globulin 5.3 gm/dl (2.5-4.0); Total Protein 8.9 gm/dl (6.4-8.2); Troponin I < 0.015 ng/ml (0-0.045)
--- NOTE | 2019-09-18 20:33 | CT Scan Report ---
CT SCAN OF THE BRAIN WITHOUT IV CONTRAST CLINICAL HISTORY: Fall. Generalized weakness. COMPARISON STUDY: No priors. TECHNIQUE: Unenhanced axial CT scan of the brain is performed from the vertex to the skull base. A do se lowering technique was utilized adhering to the principles of ALARA. CT DOSE: 614.27 mGy.cm FINDINGS: Brain parenchyma: There are age-related involutional changes noting moderate subcortical and periven tricular microangiopathic change. There is no hemorrhage, mass effect, or evidence of acute territori al ischemia by CT criteria. Mueller-white matter differentiation is preserved. No extra-axial fluid yee ection is seen. Ventricles, sulci, cisterns: Prominent secondary to involutional change. Intracranial vasculature: There is atherosclerotic calcification of the cavernous carotid and vertebr al arteries. Calvarium: The skeletal structures are osteopenic. There is no depressed calvarial fracture. Sinuses and mastoids: There is subtotal opacification of several ethmoid sinuses. The remaining visua lized paranasal sinuses are clear. The mastoid air cells are well pneumatized. Orbits: The bony orbits are grossly intact. IMPRESSION: There is no hemorrhage, mass effect, or evidence of acute territorial ischemia by CT master calvin. ACT 112: Negative or not required by law. Electronically signed by: Norman Domingo M.D. 09/18/2019 8:32 PM
[2019-09-18 20:44] LABS: Hematocrit (blood only) 31.5 % (42-52); Hemoglobin 10.3 g/dL (14.0-18.0); Mean Corpuscular Hemoglobin 27.2 pg (25-34); Mean Corpuscular Hgb Conc 32.7 g/dL (32-36); Mean Corpuscular Volume 83.1 fL (80-100); Nucleated RBC # (auto) 0.02 K/uL (0-0); Nucleated RBC % (auto) 2.3 %; Platelet Count 23 K/uL (130-400); RDW Coefficient of Variation 20.7 % (11.5-14.5); RDW Standard Deviation 58.5 fL (36.4-46.3); Red Blood Count 3.79 M/uL (4.7-6.1); White Blood Count 1.08 K/uL (4.8-10.8)
[2019-09-18 20:55] LABS: ANC (manual) 0.33 K/uL (1.4-6.5); Anisocytosis Present; Basophils # (manual) 0.01 K/uL (0-0.2); Basophils % (manual) 0.9 %; Echinocytes 1+; Giant Platelets 1+; Hypochromasia Present; Lymphocytes % (manual) 55.6 %; Metamyelocytes # (manual) 0.03 K/uL (0-0); Metamyelocytes % (manual) 2.7 %; Monocytes # (manual) 0.09 K/uL (0.11-0.59); Neutrophils # (manual) 0.33 K/uL (1.4-6.5); Other Cell Type % 1.8 %; Other Cells # (manual) 0.02 K/uL (0-0); Ovalocytes 1+; Platelet Estimate SIGNIFIC DECREASED (Normal); Poikilocytosis Present; Schistocytes Occasional
--- NOTE | 2019-09-18 21:51 | XRay Report ---
AP CHEST WITH RIGHT-SIDED RIB SERIES CLINICAL HISTORY: Fall. Right-sided chest wall pain. FINDINGS: An AP supine chest radiograph with 4 additional views from a right-sided rib series is comp ared to study dated 01/26/2017 and correlated with chest CT dated 09/04/2018. The patient is status po st midline sternotomy. The heart is enlarged. There is mild pulmonary vascular congestion. Scarring/a telectasis is seen at the lung bases. No airspace consolidation, large pleural effusion, or pneumotho rax is seen. The skeletal structures are osteopenic. There are chronic/healed right-sided rib fractur es. There are acute right anterolateral 7th through 9th rib fractures. The 7th rib fracture is mildly distracted. The remainder of the bony thorax is grossly intact. Calcified gallstones are seen in the right upper quadrant. IMPRESSION: 1. Cardiomegaly with evidence of mild congestive failure. 2. There are acute right-sided rib fractures as above. ACT 112: Negative or not required by law. Electronically signed by: Norman Domingo M.D. 09/18/2019 9:49 PM
[2019-09-18] MEDS ORDERED: HYDROCODONE/ACETAMOPHEN 5/325MG TAB PO STA (22:23)
--- NOTE | 2019-09-18 22:29 | Emergency Department Note ---
Entered by Britt Reed acting as a scribe for ED Provider Note CHIEF COMPLAINT: Weakness HISTORY OF PRESENT ILLNESS: The patient is a 84 year old male who presents to the Emergency Room with complaints of weakness beginning this morning. As per nursing staff, the patient was at the cancer center yesterday for a platelet transfusion which he gets every Tuesday. This morning, he was weaker than normal. His reports today, the patient fell over and hit the right side of his ribs and head on a hard couch. His PCP is Simona Esparza. His order dispatcher chief is Dr. Spivey. Pt denies LOC, headache, fevers, chills, diaphoresis, visual changes, neck pain, chest pain, breathing difficulties, nausea, vomiting, abdominal pain, back pain, melena, hematochezia, urinary symptoms, numbness, lymphadenopathy, rash, or other complaints. REVIEW OF SYSTEMS: See HPI for pertinent positives and negatives. A total of ten systems were reviewed and were otherwise negative. PMHx/PSHx: Lingular pneumonia Hypertension Hypercholesteremia Cancer of skin of left leg SOCIAL HISTORY: Patient lives at home. PHYSICAL EXAM: GENERAL: Awake, alert, tired-appearing, in no distress HENT: Normocephalic, atraumatic. Oropharynx unremarkable. EYES: PERRL. Normal conjunctiva. Sclera non-icteric. NECK: Inspection normal. Non-tender. Supple. No nuchal rigidity. FROM. No masses. RESPIRATORY: Clear to auscultation. No wheezes. No rales. Normal respiratory effort. CARDIAC: Normal rate. Normal rhythm. No murmurs. No rubs. Extremities warm and well perfused. Pulses equal. No JVD. GI: Soft, non-distended. No tenderness to palpation. No rebound or guarding. No masses. RECTAL: Deferred. MUSCULOSKELETAL: Atraumatic. Chest examination right anterior lateral tenderness to palpation. The back is symmetrical on inspection without obvious abnormality. There is no CVA tenderness to palpation. No joint edema. LOWER EXTREMITIES: Calves are equal size bilaterally and non-tender. No edema. No discoloration. NEURO: Normal sensorium. No sensory or motor deficits noted. Generally weak in the extremities but no focal deficits. SKIN: No rash or jaundice noted. EMERGENCY DEPARTMENT COURSE: 1911: Past medical records reviewed. The patient was evaluated in room C3, and a complete history and physical examination were performed. 2103: I updated the patients family at this time. 2115: Discussed the patients case with Simona Vaz Hematology. He recommends office follow up and close monitoring for fevers and any signs of infection. 2157: I updated the patient and his family. He will have an ambulatory trial. If ambulates without difficulty, he can be discharged home. 5: Patient did not do well on ambulatory trial. Patient will need further management in the hospital. 2222: Paged the [facility] hospitalist. Ordered oral hydrocodone. 2226: Discussed the case with . He will evaluate the patient for further management in the hospital. MEDICAL DECISION MAKING: Prior records/ancillary studies reviewed. Patient has history of pancytopenia. Nursing notes reviewed and agree them. Additional history obtained from family. The patient's history was concerning for weakness and a fall. Differential diagnosis: Etiologies such as contusion, fracture, intracranial bleeding, metabolic, infection, hypo/hyperglycemia, electrolyte abnormalities, cardiac sources, intracerebral event, toxicologic, neurologic, as well as others were entertained. Physical examination: As above. Right anterior rib tenderness. Patient initially declined analgesia. ER treatment provided: IV Lock Saline hydration Oral hydrocodone Diagnostics interpretation by me: ECG: No acute ischemia The labs revealed pancytopenia on CBC with neutropenia on differential. Patient placed on neutropenic precautions. Urinalysis unremarkable. Electrolytes unremarkable. Imaging studies: CT scan of the head reveals no evidence of intracranial trauma. X-ray imaging of the right ribs revealed no evidence of pneumothorax. The patient does however have multiple right-sided rib fractures, 7, 8, and 9. An ambulatory trial was performed as the was concerned with the patient's generalized weakness. He did not do well from the standpoint of safety. He will need further management in the hospital. Consultation: A consultation was placed with the hospitalist. The case was discussed and diagnostics were reviewed. The patient was evaluated in the ER for further treatment. IMPRESSION: Generalized weakness Pancytopenia Multiple right rib fractures Fall PLAN: Admit The scribe's documentation has been prepared under my direction and personally reviewed by me in its entirety. I confirm that the note above accurately reflects all work, treatment, procedures, and medical decision making performed by me. Impression & Plan Generalized weakness, Pancytopenia, Right rib fracture, Fall Past Med/Surg History Medical History Cancer of skin of left leg REMOVED IN OFFICE Cough (Acute) Encounter for pre-operative examination 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, L 60% Hypercholesteremia (Chronic) Hyperlipidemia Hypertension (Chronic) Hypertension Lingular pneumonia (Acute) Macular degeneration of left eye Multiple myeloma PER --PT HAS LOW PLATELETS (LAST WAS below 10), RECEIVING PROCRIT EVERY 2 WEEKS Osteoarthritis Prostate cancer 2008 RADIOACTIVE SEEDS IMPLANTED Sleep apnea CPAP Weight loss Surgical History History of cardiac cath X3 2010, 2012 (2) History of carpal tunnel release RIGHT HAND X2 History of colonoscopy History of coronary artery bypass graft DOUBLE 2011 @ [facility] FOLLOWS DR. RODRIGUEZ History of heart artery stent 2012 X1 STENT @ [facility] FOLLOWS W DR. RODRIGUEZ History of tonsillectomy History of tooth extraction ALL TEETH Hx of vasectomy Family History Other No pertinent family history in first degree relatives Social History Preferred Language: Mauritian Communication Ability: Effective Cylinder Loader Required: No Beliefs That Will Affect Care: None Current Living Situation: Spouse Feels Safe at Home: Yes Smoking Status: Former smoker Tobacco Type: cigars ; Second Hand Exposure: Yes (FATHER SMOKED) ; Hx Alcohol Use: No Hx Substance Use: No Results & Data Vital Signs Vital Signs - 24 hr 09/18/19 18:59 09/18/19 19:25 09/18/19 19:45 Temperature 36.7 C Temperature Source Oral Pulse Rate 68 64 Pulse Rate [Apical] Pulse Rate from SpO2 Sensor 34 L Respiratory Rate 18 27 H Respiratory Effort / Characteristics Non-Labored Respiratory Depth Normal Respiratory Pattern Blood Pressure 179/71 H 171/68 H Blood Pressure [Right Arm] Blood Pressure Mean 107 90 Blood Pressure Mean [Right Arm] Pulse Oximetry 98 98 97 Oxygen Delivery Method Room Air Room Air Sepsis Recent Fever Within 48 Hours No Sepsis Action Taken by Nursing No Action Required 09/18/19 20:02 09/18/19 20:48 09/18/19 21:34 Temperature Temperature Source Pulse Rate 65 Pulse Rate [Apical] 67 70 Pulse Rate from SpO2 Sensor 73 Respiratory Rate 22 22 23 Respiratory Effort / Characteristics Non-Labored Spontaneous Respiratory Depth Normal Respiratory Pattern Regular Blood Pressure 174/83 H Blood Pressure [Right Arm] 199/79 H 192/68 H Blood Pressure Mean 118 Blood Pressure Mean [Right Arm] 119 109 Pulse Oximetry 96 97 95 Oxygen Delivery Method Room Air Room Air Sepsis Recent Fever Within 48 Hours Sepsis Action Taken by Nursing 09/18/19 22:01 Temperature Temperature Source Pulse Rate 77 Pulse Rate [Apical] Pulse Rate from SpO2 Sensor 78 Respiratory Rate 23 Respiratory Effort / Characteristics Respiratory Depth Respiratory Pattern Blood Pressure 187/82 H Blood Pressure [Right Arm] Blood Pressure Mean 134 Blood Pressure Mean [Right Arm] Pulse Oximetry 96 Oxygen Delivery Method Room Air Sepsis Recent Fever Within 48 Hours Sepsis Action Taken by Longterm Medications Current Medication List: was personally reviewed by me Laboratory Data Attestation: I reviewed the patient's lab results. Result diagrams: 09/18/19 19:38 09/18/19 19:38 Lab Results 09/18/19 09/18/19 Range/Units 19:38 19:38 WBC 1.08 L (4.8-10.8) K/uL RBC 3.79 L (4.7-6.1) M/uL Hgb 10.3 L (14.0-18.0) g/dL Hct 31.5 L (42-52) % MCV 83.1 (80-100) fL MCH 27.2 (25-34) pg MCHC 32.7 (32-36) g/dL RDW Std Deviation 58.5 H (36.4-46.3) fL RDW Coeff of Marguerite 20.7 H (11.5-14.5) % Plt Count 23 L* (130-400) K/uL Absolute Nucleated RBC 0.02 H (0-0) K/uL Nucleated RBC % (auto) 2.3 % Neutrophils % (Manual) 31.0 % Lymphocytes % (Manual) 55.6 % Monocytes % (Manual) 8.0 % Basophils % (Manual) 0.9 % Metamyelocytes % (Man) 2.7 % Other Cells % 1.8 % Neutrophils # (Manual) 0.33 L (1.4-6.5) K/uL Total Absolute Neuts 0.33 L* (1.4-6.5) K/uL Lymphocytes # (Manual) 0.60 L (1.2-3.4) K/uL Total Abs Lymphocytes 0.60 L (1.2-3.4) K/uL Monocytes # (Manual) 0.09 L (0.11-0.59) K/uL Basophils # (Manual) 0.01 (0-0.2) K/uL Metamyelocytes # (Man) 0.03 H (0-0) K/uL Other Cells # 0.02 H (0-0) K/uL Platelet Estimate SIGNIFIC DECREASED (Normal) Giant Platelets 1+ Hypochromasia Present Poikilocytosis Present Anisocytosis Present Ovalocytes 1+ Echinocytes 1+ Schistocytes Occasional Sodium 136 (136-145) mmol/L Potassium 4.0 (3.5-5.1) mmol/L Chloride 105 (98-107) mmol/L Carbon Dioxide 27 (21-32) mmol/L Anion Gap 4.0 (3-11) BUN 18 (7-18) mg/dl Creatinine 0.84 (0.6-1.4) mg/dl Est Cr Clr Drug Dosing 62.8 ml/min Est GFR ( Amer) 93.8 Est GFR (Non-Af Amer) 81.0 BUN/Creatinine Ratio 21.2 H (10-20) Glucose 128 H (70-99) mg/dl Calcium 9.0 (8.5-10.1) mg/dl Magnesium 2.0 (1.8-2.4) mg/dl Total Bilirubin 1.1 H (0.2-1) mg/dl AST 20 (15-37) U/L ALT 23 (12-78) U/L Alkaline Phosphatase 113 (45-117) U/L Troponin I < 0.015 (0-0.045) ng/ml Total Protein 8.9 H (6.4-8.2) gm/dl Albumin 3.6 (3.4-5.0) gm/dl Globulin 5.3 H (2.5-4.0) gm/dl Albumin/Globulin Ratio 0.7 L (0.9-2) TSH 2.520 (0.300-4.500) uIu/ml Administered Medications Sodium Chloride (Nss 1000ml) 1,000 mls @ 125 mls/hr IV .Q8H CORTEZ Stop: 09/19/19 03:14 Last Admin: 09/18/19 19:39 Dose: 125 mls/hr Documented by: [id number] Imaging Data Radiologist's Impression: Radiology results as stated below per my review and the radiologist's interpretation: CT SCAN OF THE BRAIN WITHOUT IV CONTRAST CLINICAL HISTORY: Fall. Generalized weakness. COMPARISON STUDY: No priors. TECHNIQUE: Unenhanced axial CT scan of the brain is performed from the vertex to the skull base. A dose lowering technique was utilized adhering to the principles of ALARA. CT DOSE: 614.27 mGy.cm FINDINGS: Brain parenchyma: There are age-related involutional changes noting moderate subcortical and periventricular microangiopathic change. There is no hemorrhage, mass effect, or evidence of acute territorial ischemia by CT criteria. Mueller- white matter differentiation is preserved. No extra-axial fluid collection is seen. Ventricles, sulci, cisterns: Prominent secondary to involutional change. Intracranial vasculature: There is atherosclerotic calcification of the cav ernous carotid and vertebral arteries. Calvarium: The skeletal structures are osteopenic. There is no depressed calvarial fracture. Sinuses and mastoids: There is subtotal opacification of several ethmoid sinuses. The remaining visualized paranasal sinuses are clear. The mastoid air cells are well pneumatized. Orbits: The bony orbits are grossly intact. IMPRESSION: There is no hemorrhage, mass effect, or evidence of acute territorial ischemia by CT criteria. ACT 112: Negative or not required by law. Electronically signed by: Norman Domingo M.D. 09/18/2019 8:32 PM AP CHEST WITH RIGHT-SIDED RIB SERIES CLINICAL HISTORY: Fall. Right-sided chest wall pain. FINDINGS: An AP supine chest radiograph with 4 additional views from a right- sided rib series is compared to study dated 01/26/2017 and correlated with chest CT dated 09/04/2018. The patient is status post midline sternotomy. The heart is enlarged. There is mild pulmonary vascular congestion. Scarring/atelectasis is seen at the lung bases. No airspace consolidation, large pleural effusion, or pneumothorax is seen. The skeletal structures are osteopenic. There are chronic/healed right-sided rib fractures. There are acute right anterolateral 7th through 9th rib fractures. The 7th rib fracture is mildly distracted. The remainder of the bony thorax is grossly intact. Calcified gallstones are seen in the right upper quadrant. IMPRESSION: 1. Cardiomegaly with evidence of mild congestive failure. 2. There are acute right-sided rib fractures as above. ACT 112: Negative or not required by law. Electronically signed by: Norman Domingo M.D. 09/18/2019 9:49 PM ECG Data Attestation: I personally reviewed and interpreted this ECG as follows: Indication: + weakness Rate (beats per minute): 61 Rhythm: normal sinus and sinus rhythm ECG ST segments: no ST depression and no ST elevation ECG Findings: no PACs and no PVCs Blood Pressure Blood Pressure Findings: Elevated blood pressure Discharge Plan Visit Data Chief Complaint: Weakness Stated Complaint: WEAKNESS ED Provider: Gaurav Jara Discharge Problem: Generalized weakness, Pancytopenia, Right rib fracture, Fall Forms Stand Alone Forms: My [facility] Prescriptions Prescriptions: No Action Procrit 40,000 unit/mL Solution 40,000 unit subcut WK RF: 0 mirtazapine 30 mg tablet 30 mg PO HS RF: 0 rosuvastatin 10 mg tablet 10 mg PO Q2D RF: 0 Ocuvite Eye Plus Multi 200-15-150 mcg Tablet 1 tab PO BID RF: 0 multivitamin Tablet 1 tab PO QAM RF: 0 cetirizine [Zyrtec] 10 mg Tablet 10 mg PO QPM RF: 0 mometasone [Nasonex] 50 mcg/actuation [place],Non-Aerosol 1 spray INTRANASAL DAILY PRN (Reason: Nasal Congestion) RF: 0 metoprolol succinate 25 mg Tablet Extended Release 24 Hr 37.5 mg PO QAM RF: 0 potassium chloride 20 mEq Tablet Extended Release 20 meq PO BID RF: 0 losartan 50 mg Tablet 50 mg PO QAM RF: 0 Referrals Referrals: Edelmira Vargas MD [Primary Care Provider] - Discharge Problem: Right rib fracture Qualifiers: Encounter type: initial encounter Rib fracture type: multiple ribs Fracture type: closed Qualified Code(s): S22.41XA - Multiple fractures of ribs, right side, initial encounter for closed fracture Fall Qualifiers: Encounter type: initial encounter Qualified Code(s): W19.XXXA - Unspecified fall, initial encounter The scribe's documentation has been prepared under my direction and personally reviewed by me in its entirety. I confirm that the note above accurately reflects all work, treatment, procedures, and medical decision making performed by me.
[2019-09-19 01:27] LABS: Appearance Urine Clear (Clear); Bacteria Urine Automated Negative (Negative); Bilirubin Urine Negative (Negative); Blood Urine Negative (Negative); Cast Urine Automated 0 /lpf (0-5); Color Urine Yellow; Epithelial Cell Urine Auto 0-5 /lpf (0-5); Glucose Urine UA Negative (Negative); Ketones Urine Negative (Negative); Leukocyte Esterase Urine Negative (Negative); Nitrite Urine Negative (Negative); Protein Urine Trace (Negative); RBC Urine Automated 0-4 /hpf (0-4); Urobilinogen Urine Negative (Negative); WBC Urine Automated 0 /hpf (0-5)
[2019-09-19] MEDS ORDERED: ACETAMINOPHEN 325 MG TAB PO PRN (02:37)
[2019-09-19] MEDS ORDERED: ONDANSETRON INJ 2 MG/ML 2 ML VIAL IV PRN (02:37)
[2019-09-19] MEDS ORDERED: POLYETHYLENE (MIRALAX) 17 GM PACK PO PRN (02:37)
--- NOTE | 2019-09-19 03:05 | History and Physical Report ---
DATE OF ADMISSION: 09/19/2019 CHIEF COMPLAINT: Fall. HISTORY OF PRESENT ILLNESS: This is an 84-year-old male with past medical history significant for longstanding pancytopenia, mostly likely myelodysplastic syndrome, and bone marrow biopsy in 2017. Currently follows with hematology/oncology. He gets Procrit shots 40,000 units every week and also almost since about a year, he is also getting platelet transfusion almost every week. The patient's past medical history is also significant for CAD status post stent, status post CABG, hypertension, has chronic diarrhea, history of prostate cancer, macular degeneration of the retina, sleep apnea, hyperlipidemia, hypokalemia, who lives with his . He walks without any support. Yesterday, his lab work showed platelets less than 10,000. He went to [facility] and from there he went to the cancer center to get the platelet transfusion. He was walking fine, but generally is weak and tired and he used to sit on a chair most of the times and today while he was going to bathroom he fell on on the right side and it happened 2 or 3 times. He seems to be leaning to right side whenever he is walking. . That was the reason he was brought into the hospital. Here on imaging, CT of the head was unremarkable. Chest x-ray and rib x-ray showed acute right-sided rib fracture, 7th through 9th ribs. The patient is currently resting comfortably and hemodynamically stable, but still weak to go home. Denies any significant pain. Hemodynamics are stable. He denies any chest pain, no shortness of breath, no cough, no fever, no chills, no headache. Somewhat hard of hearing. No sore throat. Appetite is okay. The says he has ileus for the last 1 year and he lost a lot of weight, but he is able to chew okay and swallow okay. No blood in the stools or black stools. Normal bladder movements. No rash seen. ALLERGIES: ERYTHROMYCIN BASE, CHAZ INHIBITOR, PENICILLIN, TETANUS TOXOID. PAST MEDICAL HISTORY: As mentioned above. PAST SURGICAL HISTORY: CABG, carpal tunnel surgery, colonoscopy, EGDs, injection of the eyes, prostate biopsy. MEDICATIONS: The patient is on Toprol-XL 37.5 mg p.o. daily, Cozaar 50 mg p.o. daily, potassium chloride 20 mEq b.i.d., Crestor 10 mg p.o. daily, Remeron 30 mg p.o. at bedtime, Flonase 2 sprays into each nose daily, nutritional Boost t.i.d., cetirizine 10 mg p.o. daily, multivitamins, PreserVision AREDS 1 capsule b.i.d. FAMILY HISTORY: Significant for father had colon cancer. Brother has diabetes. Mother has diabetes and heart disease. SOCIAL HISTORY: and lives with his . Former smoker, quit in , smoked for 20 years. No alcohol, no drug use. REVIEW OF SYSTEMS: As per HPI. Rest of the review of systems negative. PHYSICAL EXAMINATION: GENERAL: The patient is alert and awake, not in acute distress, old and frail. VITAL SIGNS: Temperature 36.7, pulse 71, respiratory rate 24, blood pressure 149/53, oxygen 94% on room air. HEENT: No pallor, no icterus. Pupils equal, round, reactive to light. NECK: No JVD, no neck masses, no carotid bruits. CARDIOVASCULAR: S1, S2 heard, regular rate and rhythm, no murmur, no gallop. RESPIRATORY SYSTEM: Normal AP diameter. No accessory muscle use. No wheezing, no crackles. ABDOMEN: Soft, bowel sounds present. Nontender. No distention. CENTRAL NERVOUS SYSTEM: Alert and awake. Obeys commands. Power 5/5 in all extremities. Coordination of movements are normal. No pronator drift. EXTREMITIES: No edema, no erythema. LABORATORY DATA: WBC 1.08, hemoglobin 10.3, hematocrit 31.5, platelets 23. Total absolute neutrophil 0.33. Sodium 136, potassium 4, chloride 105, bicarbonate 27, BUN 18, creatinine 0.8, serum glucose 128, calcium 9, magnesium 2, total bilirubin 1.1, AST 20, ALT 23, alkaline phosphatase 113. Troponin I less than 0.015. TSH 2.5. IMAGING DATA: CT of the head, no acute findings. Chest and rib x-ray shows cardiomegaly with evidence of mild CHF, acute right-sided rib fractures from right anterolateral 7th to 9th ribs. Seventh rib fracture is mildly distracted. ASSESSMENT AND PLAN: This is an 84-year-old male who presents with weakness and fall and found to have rib fracture. 1. Weakness, fall. The patient is old and patient is frail, has myelodysplastic syndrome and gets weekly platelet transfusion and Procrit shots. Yesterday, he seemed to walk independently, but today he seemed to be leaning towards the right side and fell at home a few times and generally also is very weak and sits on the chair most of the time. We will observe on medical floor. PT and OT evaluation in a.m. 2. Rib fractures, right side 7th to 9th ribs.from the falls. The 7th rib fracture site is mildly distracted. If any concerns, we will get CT chest. 3. Myelodysplastic syndrome, neutropenia. We will do neutropenia precautions. He follows with hematology/oncology getting weekly Procrit shots and almost he is getting weekly platelet transfusion. We will follow the labs daily while he is in the hospital. Pancytopenia from myelodysplastic syndrome . 4. History of coronary artery disease status post stent, status post coronary artery bypass graft, on Toprol-XL, Cozaar, statin. 5. Depression, on Remeron. 6. Hypokalemia, on potassium supplement. 7. Hypertension, Cozaar, metoprolol. 8. Deep venous thrombosis prophylaxis, sequential compression devices for now. 9. Disposition: Observation in medical floor. PT and OT prior to discharge. Social service to help with discharge planning. Code status DNR as per my discussion with the patient and the family. MAULIK
[2019-09-19] MEDS ORDERED: FLUTICASONE PROPIONATE NA SPR 16 GM BTL PRN (03:22)
[2019-09-19] MEDS: MULTIVITAMIN TAB PO SCH (07:43)
[2019-09-19] MEDS: METOPROLOL SUCC 25MG EXT REL TAB PO SCH (07:43)
[2019-09-19] MEDS: ROSUVASTATIN CALCIUM 10 MG TAB PO SCH (07:43)
[2019-09-19] MEDS: CEROVITE ADV FORMULA TAB PO SCH ×2 (07:43→20:58)
[2019-09-19] MEDS: POTASSIUM CHLORIDE 20 MEQ TABCR PO SCH ×2 (07:43→20:58)
[2019-09-19] MEDS: LOSARTAN POTASSIUM 50 MG TAB PO SCH (07:43)
--- NOTE | 2019-09-19 11:01 | Electrocardiogram Report ---
Test Reason : Blood Pressure : / mmHG Vent. Rate : 061 BPM Atrial Rate : 061 BPM P-R Int : 154 ms QRS Dur : 100 ms QT Int : 486 ms P-R-T Axes : 038 003 033 degrees QTc Int : 489 ms Normal sinus rhythm Normal ECG When compared with ECG of 26-JAN-2017 10:27, Diffuse Nonspecific T wave abnormality no longer present Confirmed by Jono Cole ([id number]) on 09/19/2019 11:01:20 AM Referred By: REFERRED SELF Confirmed By:Jono Cole
--- NOTE | 2019-09-19 17:35 | Hospitalist Progress Note ---
Date of Service September 19, 2019 Assessment & Plan (1) Fall: Patient is an 84 yr male who presents with weakness and fall and found to have rib fracture. Generalized weakness Mechanical fall Right rib fractures CT head:There is no hemorrhage, mass effect, or evidence of acute territorial i schemia by CT criteria. CXR:Cardiomegaly with evidence of mild congestive failure. There are acute right-sided rib fractures as above. Denies any significant pain Continue incentive spirometer PT OT eval Myelodysplastic syndrome Pancytopenia Neutropenia precautions Follows with hematology/oncology as outpatient Monitor CBC and transfuse PRN No bleeding issues On Epo weekly H/O CAD S/P stent, CABG Continue Toprol-XL, Cozaar, statin Depression On Remeron. Hypokalemia Continue potassium supplement Hypertension Continue Cozaar, metoprolol Monitor BP DVT Px: SCDs Re: Thrombocytopenia Code Status DNI/DNR Disposition: PT/OT prior to discharge Subjective Patient is seen and examined at bedside States feeling well today Offers no complaints Rib pain is only minimal as per patient Denies any chest pain, SOB, dizziness, nausea, abd pain Family at bedside Review of Systems Review of Systems: All systems reviewed & are unremarkable except as noted in HPI & below Physical Exam Physical Exam: Physical Exam: Vitals signs as noted above General Appearance:Thin, Frail, no apparent distress Head: normocephalic, Atraumatic Eyes: normal inspection, EOMI Neck: supple, Trachea midline Respiratory/Chest: Normal breath sounds, Minimal R basal crackles, No accessory muscle use Cardiovascular: Irregularly irregular, No murmur Abdomen/GI:Soft, Non tender, Bowel sounds present Extremities/Musculoskelatal:normal inspection, no edema Neurologic/Psych:AAOX3, chronic right leg minimal weakness when compared to left--from prior CVA Skin: normal color, warm Results & Data Vital Signs (Past 12 Hours) Vital Signs Temp Pulse Resp BP Pulse Ox 09/19/19 15:22 36.5 C 55 L 18 178/61 H 92 09/19/19 10:48 170/69 H 09/19/19 07:51 36.5 C 56 L 17 170/69 H 95 Laboratory Results Short CBC 09/18/19 Range/Units 19:38 WBC 1.08 L (4.8-10.8) K/uL Hgb 10.3 L (14.0-18.0) g/dL Hct 31.5 L (42-52) % Plt Count 23 L* (130-400) K/uL BMP 09/18/19 19:38 Sodium 136 Potassium 4.0 Chloride 105 Carbon Dioxide 27 BUN 18 Creatinine 0.84 Glucose 128 H Calcium 9.0 Cardiac Enzymes 09/18/19 Range/Units 19:38 Troponin I < 0.015 (0-0.045) ng/ml Liver Function 09/18/19 Range/Units 19:38 Total Bilirubin 1.1 H (0.2-1) mg/dl AST 20 (15-37) U/L ALT 23 (12-78) U/L Alkaline Phosphatase 113 (45-117) U/L Albumin 3.6 (3.4-5.0) gm/dl Urine 09/19/19 Range/Units 00:45 Urine Color Yellow Urine Appearance Clear (Clear) Urine pH 5.0 (4.5-7.5) Ur Specific [place] 1.020 (1.000-1.030) Urine Protein Trace H (Negative) Urine Glucose (UA) Negative (Negative) (1) Fall Encounter type: initial encounter Qualified Code(s): W19.XXXA - Unspecified fall, initial encounter
[2019-09-19] MEDS: CETIRIZINE HCL 10 MG TABLET PO SCH (20:58)
[2019-09-19] MEDS: OXYCODONE HCL IR 5 MG TAB (IMMEDIATE RELEASE) PO PRN (21:01)
[2019-09-19] MEDS: MIRTAZAPINE TAB 15 MG TAB PO SCH (21:28)
[2019-09-20] MEDS: OXYCODONE HCL IR 5 MG TAB (IMMEDIATE RELEASE) PO PRN ×3 (05:41→22:10)
[2019-09-20 05:42] LABS: BUN Creatinine Ratio 19.1 (10-20); Calcium 8.6 mg/dl (8.5-10.1); Creatinine Clr Calc Pharmacy 67.6 ml/min; Est GFR (African American) 96.7; Est GFR (Non-African American) 83.5; Magnesium 1.8 mg/dl (1.8-2.4)
[2019-09-20 06:04] LABS: Anisocytosis Present; Hematocrit (blood only) 28.6 % (42-52); Hemoglobin 9.4 g/dL (14.0-18.0); Hypogranular Neutrophils 1+; Mean Corpuscular Hemoglobin 27.3 pg (25-34); Mean Corpuscular Hgb Conc 32.9 g/dL (32-36); Mean Corpuscular Volume 83.1 fL (80-100); Nucleated RBC # (auto) 0.04 K/uL (0-0); Nucleated RBC % (auto) 2.1 %; Platelet Count 22 K/uL (130-400); Platelet Estimate SIGNIFIC DECREASED (Normal); Poikilocytosis Present; RDW Coefficient of Variation 20.7 % (11.5-14.5); Red Blood Count 3.44 M/uL (4.7-6.1); Schistocytes 1+; Tear Drop Cells 1+; White Blood Count 2.01 K/uL (4.8-10.8)
[2019-09-20 06:08] LABS: ALC (manual) 0.98 K/uL (1.2-3.4); ANC (manual) 0.71 K/uL (1.4-6.5); Eosinophils # (manual) 0.02 K/uL (0-0.5); Eosinophils % (manual) 0.9 %; Lymphocytes # (manual) 0.98 K/uL (1.2-3.4); Lymphocytes % (manual) 48.6 %; Metamyelocytes # (manual) 0.02 K/uL (0-0); Metamyelocytes % (manual) 0.9 %; Monocytes # (manual) 0.23 K/uL (0.11-0.59); Monocytes % (manual) 11.5 %; Myelocytes # (manual) 0.05 K/uL (0-0); Myelocytes % (manual) 2.7 %; Neutrophils # (manual) 0.71 K/uL (1.4-6.5); Neutrophils % (manual) 35.4 %
[2019-09-20] MEDS: POTASSIUM CHLORIDE 20 MEQ TABCR PO SCH ×2 (08:38→22:10)
[2019-09-20] MEDS: METOPROLOL SUCC 25MG EXT REL TAB PO SCH (08:38)
[2019-09-20] MEDS: CEROVITE ADV FORMULA TAB PO SCH ×2 (08:38→22:10)
[2019-09-20] MEDS: LOSARTAN POTASSIUM 50 MG TAB PO SCH (08:38)
[2019-09-20] MEDS: MULTIVITAMIN TAB PO SCH (08:39)
--- NOTE | 2019-09-20 16:00 | Hospitalist Progress Note ---
Date of Service September 20, 2019 Assessment & Plan (1) Fall: Patient is an 84 yr male who presents with weakness and fall and found to have rib fracture. Generalized weakness Mechanical fall Ambulatory Dysfunction Right rib fractures CT head:There is no hemorrhage, mass effect, or evidence of acute territorial ischemia by CT criteria. CXR:Cardiomegaly with evidence of mild congestive failure. There are acute right-sided rib fractures as above. Denies any significant pain Continue incentive spirometer PT OT: Needs Rehab placement Continue Incentive Spirometry Myelodysplastic syndrome Pancytopenia Neutropenia precautions Follows with hematology/oncology as outpatient Monitor CBC and transfuse PRN No bleeding issues On Epo weekly Discussed with Oncology on 09/20/19--No indication for transfusion currently H/O CAD S/P stent, CABG Continue Toprol-XL, Cozaar, statin Depression On Remeron. Chronic Hypokalemia Continue potassium supplement Monitor electrolytes Hypertension Continue Cozaar, metoprolol Monitor BP DVT Px: SCDs Re: Thrombocytopenia Code Status DNI/DNR Disposition: Needs rehab placement Case management consulted for discharge planning Subjective Patient is seen and examined at bedside No new complaints Rib pain is controlled Denies any chest pain, SOB, dizziness, nausea, abd pain Family at bedside Needs Rehab placement Review of Systems Review of Systems: All systems reviewed & are unremarkable except as noted in HPI & below Physical Exam Physical Exam: Physical Exam: Vitals signs as noted above General Appearance:Thin, Frail, no apparent distress Head: normocephalic, Atraumatic Eyes: normal inspection, EOMI Neck: supple, Trachea midline Respiratory/Chest: Normal breath sounds, Minimal R basal crackles, No accessory muscle use Chest R tender to palpate Cardiovascular: Irregularly irregular, No murmur Abdomen/GI:Soft, Non tender, Bowel sounds present Extremities/Musculoskelatal:normal inspection, no edema Neurologic/Psych:AAOX3, chronic right leg minimal weakness when compared to 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 09/20/19 04:57 Sodium 135 L Potassium 4.0 Chloride 105 Carbon Dioxide 26 BUN 15 Creatinine 0.78 Glucose 85 Calcium 8.6 (1) Fall Encounter type: initial encounter Qualified Code(s): W19.XXXA - Unspecified fall, initial encounter
[2019-09-20] MEDS: CETIRIZINE HCL 10 MG TABLET PO SCH (22:10)
[2019-09-20] MEDS: MIRTAZAPINE TAB 15 MG TAB PO SCH (22:17)
[2019-09-21 06:48] LABS: Mean Corpuscular Hgb Conc 32.5 g/dL (32-36); Nucleated RBC # (auto) 0.06 K/uL (0-0); Nucleated RBC % (auto) 2.9 %; Platelet Count 29 K/uL (130-400)
[2019-09-21 06:49] LABS: Hematocrit (blood only) 28.9 % (42-52); Hemoglobin 9.4 g/dL (14.0-18.0); Mean Corpuscular Hemoglobin 26.9 pg (25-34); Mean Corpuscular Volume 82.6 fL (80-100); RDW Coefficient of Variation 20.7 % (11.5-14.5); RDW Standard Deviation 58.9 fL (36.4-46.3); White Blood Count 2.12 K/uL (4.8-10.8)
[2019-09-21 06:52] LABS: Anisocytosis Present; Giant Platelets 3+; Immature Granulocytes # (auto) 0.05 K/uL (0.00-0.02); Immature Granulocytes % (auto) 2.4 %; Lymphocytes # (auto) 1.36 K/uL (1.2-3.4); Lymphocytes % (auto) 64.2 %; Monocytes # (auto) 0.38 K/uL (0.11-0.59); Monocytes % (auto) 17.9 %; Neutrophils # (auto) 0.33 K/uL (1.4-6.5); Neutrophils % (auto) 15.5 %; Ovalocytes 1+; Platelet Estimate SIGNIFIC DECREASED (Normal); Polychromasia 1+; Tear Drop Cells 1+
[2019-09-21] MEDS: OXYCODONE HCL IR 5 MG TAB (IMMEDIATE RELEASE) PO PRN ×2 (08:05→12:33)
[2019-09-21] MEDS: METOPROLOL SUCC 25MG EXT REL TAB PO SCH (08:06)
[2019-09-21] MEDS: MULTIVITAMIN TAB PO SCH (08:07)
[2019-09-21] MEDS: ROSUVASTATIN CALCIUM 10 MG TAB PO SCH (08:07)
[2019-09-21] MEDS: LOSARTAN POTASSIUM 50 MG TAB PO SCH (08:07)
[2019-09-21] MEDS: POTASSIUM CHLORIDE 20 MEQ TABCR PO SCH (08:07)
[2019-09-21] MEDS: CEROVITE ADV FORMULA TAB PO SCH (08:07)
--- NOTE | 2019-09-21 13:59 | Hospitalist Progress Note ---
Date of Service September 21, 2019 Assessment & Plan (1) Fall: Patient is an 84 yr male who presents with weakness and fall and found to have rib fracture. Generalized weakness Mechanical fall Ambulatory Dysfunction Right rib fractures CT head:There is no hemorrhage, mass effect, or evidence of acute territorial ischemia by CT criteria. CXR:Cardiomegaly with evidence of mild congestive failure. There are acute right-sided rib fractures as above. Denies any significant pain Continue incentive spirometer PT OT: Needs Rehab placement Continue Incentive Spirometry Continue current management Myelodysplastic syndrome Pancytopenia Neutropenia precautions Follows with hematology/oncology as outpatient Monitor CBC and transfuse PRN No bleeding issues On Epo weekly Discussed with Oncology on 09/20/19--No indication for transfusion currently H/O CAD S/P stent, CABG Continue Toprol-XL, Cozaar, statin Depression On Remeron. Chronic Hypokalemia Continue potassium supplement Monitor electrolytes Hypertension Continue Cozaar, metoprolol Monitor BP DVT Px: SCDs Re: Thrombocytopenia Code Status DNI/DNR Disposition: Patient/Family prefers Home with Home Health with Home PT Case management consulted for discharge planning Subjective Patient is seen and examined at bedside Doing well today Eager to get discharged Rib pain is controlled Denies any chest pain, SOB, dizziness, nausea, abd pain Family at bedside Review of Systems Review of Systems: All systems reviewed & are unremarkable except as noted in HPI & below Physical Exam Physical Exam: Physical Exam: Vitals signs as noted above General Appearance:Thin, Frail, no apparent distress Head: normocephalic, Atraumatic Eyes: normal inspection, EOMI Neck: supple, Trachea midline Respiratory/Chest: Normal breath sounds, Minimal R basal crackles, No accessory muscle use Chest R tender to palpate Cardiovascular: Irregularly irregular, No murmur Abdomen/GI:Soft, Non tender, Bowel sounds present Extremities/Musculoskelatal:normal inspection, no edema Neurologic/Psych:AAOX3, chronic right leg minimal weakness when compared to 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
--- NOTE | 2019-09-21 14:06 | Discharge Summary ---
Date of Service September 21, 2019 Admission HPI Per Admitting Provider CHIEF COMPLAINT: Fall. HISTORY OF PRESENT ILLNESS: This is an 84-year-old male with past medical history significant for longstanding pancytopenia, mostly likely myelodysplastic syndrome, and bone marrow biopsy in 2017. Currently follows with hematology/oncology. He gets Procrit shots 40,000 units every week and also almost since about a year, he is also getting platelet transfusion almost every week. The patient's past medical history is also significant for CAD status post stent, status post CABG, hypertension, has chronic diarrhea, history of prostate cancer, macular degeneration of the retina, sleep apnea, hyperlipidemia, hypokalemia, who lives with his . He walks without any support. Yesterday, his lab work showed platelets less than 10,000. [facility] and from there he went to the cancer center to get the platelet transfusion. He was walking fine, but generally is weak and tired and he used to sit on a chair most of the times and today while he was going to bathroom he fell on on the right side and it happened 2 or 3 times. He seems to be leaning to right side whenever he is walking. . That was the reason he was brought into the hospital. Here on imaging, CT of the head was unremarkable. Chest x-ray and rib x-ray showed acute right-sided rib fracture, 7th through 9th ribs. The patient is currently resting comfortably and hemodynamically stable, but still weak to go home. Denies any significant pain. Hemodynamics are stable. He denies any chest pain, no shortness of breath, no cough, no fever, no chills, no headache. Somewhat hard of hearing. No sore throat. Appetite is okay. The says he has ileus for the last 1 year and he lost a lot of weight, but he is able to chew okay and swallow okay. No blood in the stools or black stools. Normal bladder movements. No rash seen. Admission Exam Per Admitting Provider PHYSICAL EXAMINATION: GENERAL: The patient is alert and awake, not in acute distress, old and frail. VITAL SIGNS: Temperature 36.7, pulse 71, respiratory rate 24, blood pressure 149/53, oxygen 94% on room air. HEENT: No pallor, no icterus. Pupils equal, round, reactive to light. NECK: No JVD, no neck masses, no carotid bruits. CARDIOVASCULAR: S1, S2 heard, regular rate and rhythm, no murmur, no gallop. RESPIRATORY SYSTEM: Normal AP diameter. No accessory muscle use. No wheezing, no crackles. ABDOMEN: Soft, bowel sounds present. Nontender. No distention. CENTRAL NERVOUS SYSTEM: Alert and awake. Obeys commands. Power 5/5 in all extremities. Coordination of movements are normal. No pronator drift. EXTREMITIES: No edema, no erythema. Principal Diagnosis Mechanical fall Right rib fractures Myelodysplastic syndrome Discharge Data Allergies Allergy/AdvReac Type Severity Reaction Status Date / Time Penicillins Allergy Severe HIVES Verified 09/18/19 20:57 tetanus toxoid, adsorbed Allergy Severe SWELLING Verified 09/18/19 20:57 CHAZ Inhibitors AdvReac Severe COUGH Verified 09/18/19 20:57 erythromycin base AdvReac Severe DIARRHEA Verified 09/18/19 20:57 Consultations 09/18/19 22:24 ED Decision to Admit Stat 09/19/19 02:37 Consult Case Management - Discharge Planning Routine Procedures Performed CT head:There is no hemorrhage, mass effect, or evidence of acute territorial ischemia by CT criteria. CXR:Cardiomegaly with evidence of mild congestive failure. There are acute right-sided rib fractures as above. Ordered Studies 09/18/19 19:13 CT head/brain wo con Stat Hospital Course (1) Fall: Patient is an 84 yr male who presents with weakness and fall and found to have rib fracture. Generalized weakness Mechanical fall Ambulatory Dysfunction Right rib fractures CT head:There is no hemorrhage, mass effect, or evidence of acute territorial ischemia by CT criteria. CXR:Cardiomegaly with evidence of mild congestive failure. There are acute right-sided rib fractures as above. Denies any significant pain Continue incentive spirometer PT OT: Needs Rehab placement Continue Incentive Spirometry Continue current management Myelodysplastic syndrome Pancytopenia Neutropenia precautions Follows with hematology/oncology as outpatient Monitor CBC and transfuse PRN No bleeding issues On Epo weekly Discussed with Oncology on 09/20/19--No indication for transfusion currently H/O CAD S/P stent, CABG Continue Toprol-XL, Cozaar, statin Depression On Remeron. Chronic Hypokalemia Continue potassium supplement Monitor electrolytes Hypertension Continue Cozaar, metoprolol Monitor BP DVT Px: SCDs Re: Thrombocytopenia Code Status DNI/DNR Disposition: Patient/Family prefers Home with Home Health with Home PT Case management consulted for discharge planning Total Time Total Time Spent Total Time Spent (In Minutes): 39 minutes Total Time Includes: Examination of the Patient, Discharge Planning, Medication Reconciliation, Communication With Other Providers and Other Discharge Plan Discharge Items Patient Disposition: Home - Home Health Services Reason For Visit: FALL Discharge Diagnosis: Mechanical fall Right rib fractures Myelodysplastic syndrome Activity: Per Instructions section Exercise/Sports: Gradually increase as tolerated Non-emergency contact: Primary Care Provider and Oncologist Call non-emergency contact if: you have any medication questions, your symptoms worsen, your pain is not controlled, your pain is worsening, your pain is unusual for you, your pain is concerning for you and you have a fever Follow-up/Referrals: Edelmira Vargas MD [Primary Care Provider] - 09/24/19 12:45 pm Diet: Regular Addtl Attending Provider Instructions: Follow-up with your primary care physician Dr. Best in 1 week as scheduled Seek immediate medical attention if your symptoms reoccur or worsen Pending Studies at Discharge: No Stand-Alone Forms: My Adimab, Opioid Pain Management, Smoking Cessation Medications and DC Order Prescriptions: New oxycodone 5 mg Tablet 5 mg PO Q12 PRN (Reason: pain) Qty: 6 RF: 0 Continued Procrit 40,000 unit/mL Solution 40,000 unit subcut WK RF: 0 mirtazapine 30 mg tablet 30 mg PO HS RF: 0 rosuvastatin 10 mg tablet 10 mg PO Q2D RF: 0 Ocuvite Eye Plus Multi 200-15-150 mcg Tablet 1 tab PO BID RF: 0 multivitamin Tablet 1 tab PO QAM RF: 0 cetirizine [Zyrtec] 10 mg Tablet 10 mg PO QPM RF: 0 mometasone [Nasonex] 50 mcg/actuation [place],Non-Aerosol 1 spray INTRANASAL DAILY PRN (Reason: Nasal Congestion) RF: 0 metoprolol succinate 25 mg Tablet Extended Release 24 Hr 37.5 mg PO QAM RF: 0 potassium chloride 20 mEq Tablet Extended Release 20 meq PO BID RF: 0 losartan 50 mg Tablet 50 mg PO QAM RF: 0 Discharge Orders: Discharge Order (Routine); Ordered 09/21/19 Ordered By: Phil Zambrano/Other Patient Handouts: DVT Admission Data Admit Date/Time: 09/20/19 15:43 Attending Provider: Phil Duque Admit Provider: Deshawn Kelly Primary Care Provider: Edelmira Vargas Other Providers: Deshawn Kelly ; [facility] Other Interventions: Discharge Summary Assessment (RN) Last Done: 09/21/19 14:35 DC Date/Time DO NOT enter until pt leaves facility: 09/21/19 15:30
[2019-09-24] MEDS ORDERED: EPOETIN ALFA 40,000 UNITS/ML VIAL SQ SCH (09:00)
== END 2019-09-21 15:30 | disposition home health service (06) | DRG 184 ==
LOC: 2N 18:53 → ED 18:53 → 2N 09-19 02:10 → 3E 09-19 21:53

== ENCOUNTER 2020-02-20 21:25 | Inpatient (IN) ==
[2020-02-20] MEDS ORDERED: ONDANSETRON INJ 2 MG/ML 2 ML VIAL IV STA (21:41)
[2020-02-20] MEDS ORDERED: SODIUM CHLORIDE 0.9% 1000ML 1,000 ML IV SCH (21:45)
[2020-02-20 22:24] LABS: Aspartate Aminotransferase 22 U/L (15-37); BUN Creatinine Ratio 21.1 (10-20); Blood Urea Nitrogen 34 mg/dl (7-18); Carbon Dioxide 19 mmol/L (21-32); Chloride 106 mmol/L (98-107); Est GFR (African American) 45.5; Est GFR (Non-African American) 39.3; Glucose 122 mg/dl (70-99); Lipase 53 U/L (73-393); Potassium 4.5 mmol/L (3.5-5.1); Sodium 135 mmol/L (136-145)
[2020-02-20 22:28] LABS: Alanine Aminotransferase 21 U/L (12-78); Albumin Globulin Ratio 0.6 (0.9-2); Alkaline Phosphatase 121 U/L (45-117); Bilirubin,Total 1.2 mg/dl (0.2-1); Globulin 5.2 gm/dl (2.5-4.0); Total Protein 8.2 gm/dl (6.4-8.2); Troponin I < 0.015 ng/ml (0-0.045)
--- NOTE | 2020-02-20 22:43 | Emergency Department Note ---
Impression & Plan Volvulus, Abdominal pain, Bowel obstruction, Pancytopenia, Thrombocytopenia ED Provider Note NAME: HENRY MARTINEZ AGE: 84 SEX: M : 1935 ARRIVES VIA: Walk-In INFORMANT: Patient, the patient significant other ED PROVIDER(S): Michael Kaur DO CHIEF COMPLAINT: Abdominal pain HPI: The patient is an 84-year-old male who presented to the emergency department for an evaluation of abdominal pain. The patient describes abdominal distention. He has had a few loose bowel movements but no nausea or vomiting. The patient describes ongoing crampy pain which started this morning. His states that he has had a history of similar episodes in the past with an ileus but he has never had a bowel obstruction to the best of her knowledge. He denies having any chest pain or trouble breathing. He has had no fevers. He denies having any lower extremity swelling. He has had no cough or headache. The patient is not been seen by provider prior to coming to the emergency department. ROS: See above HPI for pertinent positives & negatives. A total of 10 systems reviewed and were otherwise negative. PAST MEDICAL HISTORY: See Below PAST SURGICAL HISTORY: See Below FAMILY HISTORY: See Below SOCIAL HISTORY: See Below HOME MEDICATIONS: See Below ALLERGIES: See Below VITALS: See Below PHYSICAL EXAMINATION: GENERAL: The patient is awake and alert. He is somewhat anxious appearing and appears to be uncomfortable. EYES: The conjunctivae are clear. The pupils are round and reactive. EARS, NOSE, MOUTH AND THROAT: The nose is without any evidence of any deformity. Mucous membranes are moist. Tongue is midline. NECK: The neck is nontender and supple. RESPIRATORY: Normal respiratory effort is noted there is no evidence of wheezing rhonchi or rales CARDIOVASCULAR: Regular rate and rhythm noted there no murmurs rubs or gallops normal S1 normal S2. GASTROINTESTINAL: The abdomen is moderately distended. There is tenderness to palpation and diffuse guarding. MUSCULOSKELETAL/EXTREMITIES: There is no evidence of gross deformity full range of motion is noted in the hips and shoulders. SKIN: There is no obvious evidence of any rash. Skin was pale and cold. Trace pedal edema was noted bilaterally. NEUROLOGIC: Patient is awake alert and oriented x3. MEDICAL DECISION MAKING: The patient is an 84-year-old male who presented to the emergency department for an evaluation of abdominal pain and abdominal distention. The patient had very significant abdominal findings on physical exam. For this reason further laboratory and radiographic studies were obtained. CT the abdomen and pelvis was obtained and did reveal signs of volvulus with bowel obstruction. The area of the volvulus was not well demonstrated on the CAT scan. It appeared to be on the left side but not necessarily a sigmoid volvulus. I discussed the patient's laboratory and radiographic studies with him. I also discussed this case with the on-call general surgical group. They have agreed to evaluate the patient in the emergency department for further management and disposition. The patient was treated with IV fluids as well as IV antibiotics in the emergency [facility]. Blood products were ordered for the patient. I consented the patient for transfusion. Triage Nursing notes reviewed. Prior medical records reviewed Vital Signs: reviewed and remarkable for elevated blood pressure. Differential diagnosis: Etiologies such as appendicitis, diverticulitis, obstruction, inflammatory bowel disease, renal colic, PUD, biliary pathology, pancreatitis, mesenteric ischemia, aortic pathology, infections, genitourinary, UTI, perforated viscus, as well as others were entertained. ER treatment provided: See below Diagnostics interpreted by me: ECG: EKG was obtained in the emergency department. My interpretation is normal sinus rhythm at 81 bpm. There was no ectopy. There is an incomplete right bundle branch block pattern noted. This was compared to a tracing from September 18, 2019. No significant changes were noted. Cardiac Monitoring: An order was placed for continuous cardiac monitoring. The monitor shows a rate of 85 with sinus rhythm. Laboratory studies: As stated above and show below. Imaging studies: See below Consultation(s): 2300: I discussed this case with Dr. Blood. I discussed the patient's laboratory and radiographic studies with him. 2340: I discussed this case with Dr Mera with GI. She asked me to order the patient platelets as well as a tap water enema pending her evaluation and possible colonoscopy. 2355: I discussed this case with Dr. Scott who is on-call for the [facility]. They have agreed to evaluate the patient in the emergency department for further management and disposition. ED COURSE: Procedures: none Critical Care: I have personally spent greater than 55 minutes of critical care time in the dir ect management of this patient. This includes bedside care, interpretation of diagnostic studies, and testing, discussion with consultants, patient, and family members, and other required patient management activities. This 55 minutes is in excess of all separately billable procedures. 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 RODRIGUEZ History of heart artery stent 2013 X1 STENT @ [facility] FOLLOWS W DR. RODRIGUEZ History of tonsillectomy History of tooth extraction ALL TEETH Hx of vasectomy Family History Other No pertinent family history in first degree relatives Social History Preferred Language: Norwegian Communication Ability: Effective Medical Staff Specialist Required: No Beliefs That Will Affect Care: None marital status: Current Living Situation: Spouse Feels Safe at Home: Yes Smoking Status: Former smoker Tobacco Type: cigars ; Second Hand Exposure: Yes (FATHER SMOKED) ; Hx Alcohol Use: No Hx Substance Use: No Allergies Allergies Allergy/AdvReac Type Severity Reaction Status Date / Time tetanus toxoid, adsorbed Allergy Severe SWELLING Verified 02/20/20 22:15 Penicillins Allergy Intermediate HIVES Verified 02/20/20 22:15 CHAZ Inhibitors AdvReac Intermediate COUGH Verified 02/20/20 22:15 erythromycin base AdvReac Intermediate DIARRHEA Verified 02/20/20 22:15 Home Meds Home Medications Medication Instructions Recorded Confirmed cetirizine [Zyrtec] 10 mg PO QPM 05/19/18 02/20/20 losartan 50 mg PO QAM 05/19/18 02/20/20 metoprolol succinate 25 mg PO QAM 05/19/18 02/20/20 multivitamin 1 tab PO QAM 05/19/18 02/20/20 potassium chloride 20 meq PO BID 05/19/18 02/20/20 Procrit 60,000 unit SUBCUT WK 06/19/19 02/20/20 Ocuvite Eye Plus Multi 1 tab PO BID 09/18/19 02/20/20 acetaminophen 500 mg capsule 500 mg PO Q8H PRN cap 02/13/20 02/20/20 ascorbate calcium (vitamin C) 500 500 mg PO DAILY 02/13/20 02/20/20 mg tablet dicyclomine 10 mg capsule 10 mg PO DAILY PRN cap 02/13/20 02/20/20 fluticasone propionate 50 2 sprays INTNAS HS ml 02/13/20 02/20/20 mcg/actuation nasal spray,suspension guaifenesin 600 mg tablet, 600 mg PO BID PRN 02/13/20 02/20/20 extended release 12 hr mirtazapine 30 mg tablet 30 mg PO HS tab 02/13/20 02/20/20 prucalopride 2 mg tablet 2 mg PO DAILY 02/13/20 02/20/20 simethicone 125 mg capsule 125 mg PO BID PRN cap 02/13/20 02/20/20 mirtazapine [Remeron] 30 mg PO HS 02/20/20 02/20/20 Results & Data (ED) Vital Signs Vital Signs - 24 hr 02/20/20 21:26 02/20/20 22:59 Temperature 36.5 C Temperature Source Oral Pulse Rate 84 Pulse Rate [Apical] 79 Respiratory Rate 18 18 Respiratory Effort / Characteristics Non-Labored Spontaneous Respiratory Depth Normal Blood Pressure 126/71 Blood Pressure [Left Arm] 155/63 H Blood Pressure Mean 89 Blood Pressure Mean [Left Arm] 93 Pulse Oximetry 97 96 Oxygen Delivery Method Room Air Room Air Sepsis Recent Fever Within 48 Hours No Sepsis Action Taken by Nursing No Action Required Home Medications Current Medication List: was personally reviewed by me Laboratory Data Attestation: I reviewed the patient's lab results. Result diagrams: 02/20/20 21:54 02/20/20 21:54 Lab Results 02/20/20 02/20/20 Range/Units 21:54 21:54 WBC 4.08 L (4.8-10.8) K/uL RBC 4.23 L (4.7-6.1) M/uL Hgb 10.7 L (14.0-18.0) g/dL Hct 34.2 L (42-52) % MCV 80.9 (80-100) fL MCH 25.3 (25-34) pg MCHC 31.3 L (32-36) g/dL RDW Std Deviation 60.1 H (36.4-46.3) fL RDW Coeff of Marguerite 22.0 H (11.5-14.5) % Plt Count 29 L* (130-400) K/uL Immature Gran % (Auto) 1.0 % Neut % (Auto) 61.5 % Lymph % (Auto) 21.3 % [place] % (Auto) 15.2 % Eos % (Auto) 0.0 % Baso % (Auto) 1.0 % Immature Gran # (Auto) 0.04 H (0.00-0.02) K/uL Neut # (Auto) 2.51 (1.4-6.5) K/uL Lymph # (Auto) 0.87 L (1.2-3.4) K/uL [place] # (Auto) 0.62 H (0.11-0.59) K/uL Eos # (Auto) 0.00 (0-0.5) K/uL Baso # (Auto) 0.04 (0-0.2) K/uL Absolute Nucleated RBC 0.24 H (0-0) K/uL Nucleated RBC % (auto) 5.8 % Platelet Estimate SIGNIFIC DECREASED (Normal) Polychromasia 1+ Hypochromasia Present Anisocytosis Present Echinocytes 2+ Acanthocytes (Spur) 1+ Sodium 135 L (136-145) mmol/L Potassium 4.5 (3.5-5.1) mmol/L Chloride 106 (98-107) mmol/L Carbon Dioxide 19 L (21-32) mmol/L Anion Gap 10.0 (3-11) BUN 34 H (7-18) mg/dl Creatinine 1.60 H (0.6-1.4) mg/dl Est Cr Clr Drug Dosing Not Reportable Est GFR ( Amer) 45.5 Est GFR (Non-Af Amer) 39.3 BUN/Creatinine Ratio 21.1 H (10-20) Glucose 122 H (70-99) mg/dl Calcium 9.0 (8.5-10.1) mg/dl Total Bilirubin 1.2 H (0.2-1) mg/dl AST 22 (15-37) U/L ALT 21 (12-78) U/L Alkaline Phosphatase 121 H (45-117) U/L Troponin I < 0.015 (0-0.045) ng/ml Total Protein 8.2 (6.4-8.2) gm/dl Albumin 3.0 L (3.4-5.0) gm/dl Globulin 5.2 H (2.5-4.0) gm/dl Albumin/Globulin Ratio 0.6 L (0.9-2) Lipase 53 L (73-393) U/L Administered Medications Levofloxacin/Dextrose (Levaquin/D5w) 750 mg in 150 mls @ 100 mls/hr IV NOW STA Stop: 02/21/20 00:19 Last Admin: 02/20/20 23:08 Dose: 100 mls/hr Documented by: [id number] Discontinued Medications Sodium Chloride (Nss 1000ml) 1,000 mls @ 999 mls/hr IV .Q1H1M CORTEZ Stop: 02/20/20 22:45 Last Infusion: 02/20/20 23:19 Dose: 0 mls/hr Documented by: [id number] Admin: 02/20/20 21:59 Dose: 999 mls/hr Documented by: [id number] Ondansetron HCl (Zofran) 4 mg IV NOW STA Stop: 02/20/20 21:42 Last Admin: 02/20/20 21:59 Dose: 4 mg Documented by: [id number] Imaging Data Radiologist's Impression: Preliminary Findings Only See Final Report For Com plete Findings CT ABDOMEN & PELVIS Without Contrast: Mechanical colonic obstruction from volvulus/twisting process/internal hernia occurring in the left abdomen. There is marked colonic distention. Significant distortion, difficult to run the bowel to assess. Bowel involved could include portion of the transverse colon or descending-sigmoid colon area. Edema in the mesentery. No extraluminal air. Recommend surgical consultation. Small-moderate right pleural effusion. Consolidative atelectasis in the lung bases Cholelithiasis. Nonobstructing right renal stone. Radiation seeds in the prostate. Small amounts of fluid in the peritoneal cavity. Appendix not identified. Radiologist: Trista Moses M.D. Study ready at 22:15 and initial results transmitted at 22:47 Communications: Clear Time Type Notes 02/20/20 22:48 Call Doctor Regarding Other, called Dr. Kaur on 02/19 22:48 (- 04:00) Blood Pressure Blood Pressure Findings: Elevated blood pressure Blood Pressure Disposition: further management by hospitalist Discharge Plan Visit Data Chief Complaint: Abdominal Pain Stated Complaint: ABD PAIN BLOATED ABD ED Provider: Michael Kaur Discharge Problem: Volvulus, Abdominal pain, Bowel obstruction, Pancytopenia, Thrombocytopenia Patient Disposition: Being Evaluated by Surgeon Condition: Good Forms Stand Alone Forms: [facility] [employer] Prescriptions Prescriptions: No Action dicyclomine 10 mg capsule 10 mg PO DAILY PRN (Reason: Gastrointestinal Spasms Or Cramping) RF: 0 simethicone [Gas Relief (simethicone)] 125 mg capsule 125 mg PO BID PRN (Reason: Other) RF: 0 ascorbate calcium (vitamin C) 500 mg tablet 500 mg PO DAILY RF: 0 mirtazapine 30 mg tablet 30 mg PO HS RF: 0 acetaminophen 500 mg capsule 500 mg PO Q8H PRN (Reason: Pain) RF: 0 fluticasone propionate [Flonase Allergy Relief] 50 mcg/actuation spray,suspension 2 sprays INTNAS HS RF: 0 guaifenesin [Mucinex] 600 mg tablet extended release 12hr 600 mg PO BID PRN (Reason: Cough) RF: 0 prucalopride 2 mg tablet 2 mg PO DAILY RF: 0 Procrit 40,000 unit/mL Solution 60,000 unit subcut WK RF: 0 Ocuvite Eye Plus Multi 200-15-150 mcg Tablet 1 tab PO BID RF: 0 mirtazapine [Remeron] 30 mg tablet 30 mg PO HS RF: 0 multivitamin Tablet 1 tab PO QAM RF: 0 cetirizine [Zyrtec] 10 mg Tablet 10 mg PO QPM RF: 0 metoprolol succinate 25 mg Tablet Extended Release 24 Hr 25 mg PO QAM RF: 0 potassium chloride 20 mEq Tablet Extended Release 20 meq PO BID RF: 0 losartan 50 mg Tablet 50 mg PO QAM RF: 0 Referrals Referrals: RajEdelmira harrison MD [Primary Care Provider] - Discharge Problem: Abdominal pain Qualifiers: Abdominal location: generalized Qualified Code(s): R10.84 - Generalized abdominal pain Bowel obstruction Qualifiers: Intestinal obstruction type: volvulus Qualified Code(s): K56.2 - Volvulus
[2020-02-20 22:48] LABS: Platelet Count 29 K/uL (130-400)
[2020-02-20 22:49] LABS: Acanthocytes 1+; Anisocytosis Present; Basophils # (auto) 0.04 K/uL (0-0.2); Echinocytes 2+; Hematocrit (blood only) 34.2 % (42-52); Hemoglobin 10.7 g/dL (14.0-18.0); Hypochromasia Present; Immature Granulocytes # (auto) 0.04 K/uL (0.00-0.02); Lymphocytes # (auto) 0.87 K/uL (1.2-3.4); Lymphocytes % (auto) 21.3 %; Mean Corpuscular Hemoglobin 25.3 pg (25-34); Mean Corpuscular Hgb Conc 31.3 g/dL (32-36); Mean Corpuscular Volume 80.9 fL (80-100); Monocytes # (auto) 0.62 K/uL (0.11-0.59); Monocytes % (auto) 15.2 %; Neutrophils # (auto) 2.51 K/uL (1.4-6.5); Neutrophils % (auto) 61.5 %; Nucleated RBC # (auto) 0.24 K/uL (0-0); Nucleated RBC % (auto) 5.8 %; Platelet Estimate SIGNIFIC DECREASED (Normal); Polychromasia 1+; RDW Standard Deviation 60.1 fL (36.4-46.3); Red Blood Count 4.23 M/uL (4.7-6.1); White Blood Count 4.08 K/uL (4.8-10.8)
[2020-02-20] MEDS ORDERED: LEVOFLOXACIN/D5W 750 MG/150 ML BAG IV STA (22:50)
[2020-02-20] MEDS ORDERED: cefOXitin 2,000 MG/60 ML BAG IV STA (22:50)
--- NOTE | 2020-02-20 23:44 | Surgery Consultation ---
Date of Consultation February 20, 2020 Assessment & Plan (1) Abdominal distention: -etiology unclear, but may be due to volvulus or internal hernia -as thrombocytopenia noted, would be hesitant to take right to surgery -recommend hospitalist admission and GI evaluation for consideration of colono scopy prior to any surgical intervention: -pt. seen and examined with Dr. Blood: -he discussed with GI the need for urgent colonoscopy, they wish to provide platelet transfusion prior to any endoscopy -will follow along while in hospital Supervising Physician Co-Signing Physician Notes Discussed situation with the patient and his Apparently the patient had a liquid bowel movement at 630 this evening Apparently has had a history of abdominal distention and according to his multiple times in the past they recommended putting a tube in his rectum This time discussed the situation with the mechanical product engineer discussed evaluating for possible colonoscopy she would like to wait until the platelets are transfused At this point there is no acute surgical emergency will follow closely History of Present Illness History of Present Illness 84 year old male presented to ED secondary to worsening abdominal pain and distention. His notes over the past year he has lost nearly 60 pounds and has had frequent diarrhea. Over the past 24-48 hours he has noted some worsening abdominal pain,nausea, and frequent belching. He has not been able to eat much over the past 24-48 hours. He denies fevers, shakes, chills. He d enies hematemesis, melena, BRBPR. He notes a hx. 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 In the ED, he had a CT scan of the abdomen that showed severe dilation of the colon. The interpreting radiologist raised the concern for colonic volvulus or internal hernia. He was noted to have pancytopenia with a WBC of 4, H/H of 10/7/34.2, and platelet count of 29. At the time of my exam, he was in no distress. Allergies Allergy/AdvReac Type Severity Reaction Status Date / Time tetanus toxoid, adsorbed Allergy Severe SWELLING Verified 02/20/20 22:15 Penicillins Allergy Intermediate HIVES Verified 02/20/20 22:15 CHAZ Inhibitors AdvReac Intermediate COUGH Verified 02/20/20 22:15 erythromycin base AdvReac Intermediate DIARRHEA Verified 02/20/20 22:15 Home Medications Home Medications Medication Instructions Recorded Confirmed Type cetirizine [Zyrtec] 10 mg PO QPM 05/19/18 02/20/20 History losartan 50 mg PO QAM 05/19/18 02/20/20 History metoprolol succinate 25 mg PO QAM 05/19/18 02/20/20 History multivitamin 1 tab PO QAM 05/19/18 02/20/20 History potassium chloride 20 meq PO BID 05/19/18 02/20/20 History Procrit 60,000 unit SUBCUT WK 06/19/19 02/20/20 History Ocuvite Eye Plus Multi 1 tab PO BID 09/18/19 02/20/20 History acetaminophen 500 mg capsule 500 mg PO Q8H PRN cap 02/13/20 02/20/20 History ascorbate calcium (vitamin C) 500 500 mg PO DAILY 02/13/20 02/20/20 History mg tablet dicyclomine 10 mg capsule 10 mg PO DAILY PRN cap 02/13/20 02/20/20 History fluticasone propionate 50 2 sprays INTNAS HS ml 02/13/20 02/20/20 History mcg/actuation nasal spray,suspension guaifenesin 600 mg tablet, 600 mg PO BID PRN 02/13/20 02/20/20 History extended release 12 hr mirtazapine 30 mg tablet 30 mg PO HS tab 02/13/20 02/20/20 History prucalopride 2 mg tablet 2 mg PO DAILY 02/13/20 02/20/20 History simethicone 125 mg capsule 125 mg PO BID PRN cap 02/13/20 02/20/20 History mirtazapine [Remeron] 30 mg PO HS 02/20/20 02/20/20 History Patient History Medical History Acute kidney injury Cancer of skin of left leg REMOVED IN OFFICE Chronic anemia Cough (Acute) Encounter for pre-operative examination 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, 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 RODRIGUEZ History of heart artery stent 2013 X1 STENT @ [facility] FOLLOWS W DR. RODRIGUEZ History of tonsillectomy History of tooth extraction ALL TEETH Hx of vasectomy Family History Other No pertinent family history in first degree relatives Social History Preferred Language: Zambian Communication Ability: Effective Instant Powder Supervisor Required: No Beliefs That Will Affect Care: None marital status: Current Living Situation: Spouse Feels Safe at Home: Yes Smoking Status: Former smoker Tobacco Type: cigars ; Second Hand Exposure: Yes (FATHER SMOKED) ; Hx Alcohol Use: No Hx Substance Use: No Review of Systems Constitutional: + fatigue, + weakness, + anorexia and + weight loss (60 pounds, unintentional over the past year); no fever and no chills Eyes: no diplopia Ear, Nose, Mouth, Throat: no ear pain Respiratory: no cough and no dyspnea Cardiovascular: no chest pain Gastrointestinal: + abdominal pain, + belching, + nausea and + diarrhea/loose stools; no vomiting, no coffee ground emesis, no constipation, no blood in stools and no melena Genitourinary: no dysuria Musculoskeletal: no back pain Integumentary: no rash Neurologic: no localized weakness Hematologic / Lymphatic: no easy bruising Physical Exam Constitutional: + thin; no acute distress Eyes: no conjunctival abnormality ENMT: Ears: no hearing impairment mucous membranes are dry Neck: trachea midline Respiratory: normal respiratory effort; no respiratory distress and no labored breathing BS are decreased at bases R>L Cardiovascular: Rate/Rhythm: regular rate and regular rhythm Vessels: dorsalis pedis pulses present and radial pulses present Gastrointestinal (Abdomen): BS are present, abdomen is markedly distended and hypertympanic to percussion, diffuse tenderness noted with palpation, no rebound tenderness or guarding noted Musculoskeletal: no calf tenderness Skin: no rashes, warm and dry Neurologic: moves all extremities Psychiatric: A+Ox3, euthymic affect Results & Data Vital Signs (Past 12 Hours) Vital Signs Temp Pulse Pulse Resp BP BP Pulse Ox 02/20/20 22:59 79 18 155/63 H 96 02/20/20 21:26 36.5 C 84 18 126/71 97 PG Care Time/CCT Total # of Minutes Spent Total Time Spent with Patient: Total time spent is greater than 50% in coordination of care (as documented) at patient's floor/unit and/or counseling patient: Coding Level of Care Code 70270 Inpt Consult Level 5 Diagnoses Abdominal distention R14.0
[2020-02-21] MEDS ORDERED: SODIUM CHLORIDE 0.9% 1000ML 500 ML IV ONE (00:06)
--- NOTE | 2020-02-21 00:56 | History & Physical Report ---
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 Incipient bowel ischemia secondary to above, patient not septic ARF on CRI secondary to GI illness hx CAD status post CABG status post stent hypertension, stable chronic pancytopenia/history of myelodysplastic syndrome prostate cancer status post radiation past tobacco abuse. Medical telemetry given possible need for IV beta-miliva in place of home oral Rx while patient on bowel rest Surgery consult RE bowel obstruction (ER provider already in touch with Dr. Blood who recommends GI consultation for possible decompression procedure.) Zosyn for now for possible bowel ischemia Hold Motegrity rx for now until patient evaluated by GI service. Baseline UA, monitor creatinine response to IVF Appropriate to hold home losartan until creatinine back to baseline Nephrology consult if kidney function does not improve (patient known to [facility] DVT prophylaxis with SCDs RE thrombocytopenia DNR Patient's requesting updates providers. Ms. Sheyla Sapp, contact #[phone]. Text document was generated using [employer] voice recognition software. It may contain grammatical or spelling errors. Kindly contact undersigned for clarification of any documentation item in question. History of Present Illness Chief Complaint: Abdominal pain Primary Care Provider: Edelmira Vargas MD History obtained from patient, family, and records. History somewhat limited from patient secondary to mild impairment. 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 Last confinement September 2019 secondary to right rib fractures secondary to mechanical fall. Patient with chronic diarrhea symptoms since 2018. CT imaging showed ileus. 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 No improvement with Xifaxan Rx. Continued weight loss despite good appetite as per outpatient GI note from November 2019. Motegrity Rx initiated outpatient. Continued weight loss/abdominal cramping/semi-formed stools noted on follow-up visit about 2 weeks ago. Follow-up CT abdomen pelvis study requested. Yesterday morning patient noted progressive abdominal distention with achy abdominal pain. Some nausea, no emesis. Usual nonbloody loose stools. No fever, no chills. No chest pain, no S OB, no fluid retention. Patient brought to ER for evaluation. 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 Allergies Allergy/AdvReac Type Severity Reaction Status Date / Time tetanus toxoid, adsorbed Allergy Severe SWELLING Verified 02/20/20 22:15 Penicillins Allergy Intermediate HIVES Verified 02/20/20 22:15 CHAZ Inhibitors AdvReac Intermediate COUGH Verified 02/20/20 22:15 erythromycin base AdvReac Intermediate DIARRHEA Verified 02/20/20 22:15 Home Medications Home Medications Medication Instructions Recorded Confirmed Type cetirizine [Zyrtec] 10 mg PO QPM 05/19/18 02/20/20 History losartan 50 mg PO QAM 05/19/18 02/20/20 History metoprolol succinate 25 mg PO QAM 05/19/18 02/20/20 History multivitamin 1 tab PO QAM 05/19/18 02/20/20 History potassium chloride 20 meq PO BID 05/19/18 02/20/20 History Procrit 60,000 unit SUBCUT WK 06/19/19 02/20/20 History Ocuvite Eye Plus Multi 1 tab PO BID 09/18/19 02/20/20 History acetaminophen 500 mg capsule 500 mg PO Q8H PRN cap 02/13/20 02/20/20 History ascorbate calcium (vitamin C) 500 500 mg PO DAILY 02/13/20 02/20/20 History mg tablet dicyclomine 10 mg capsule 10 mg PO DAILY PRN cap 02/13/20 02/20/20 History fluticasone propionate 50 2 sprays INTNAS HS ml 02/13/20 02/20/20 History mcg/actuation nasal spray,suspension guaifenesin 600 mg tablet, 600 mg PO BID PRN 02/13/20 02/20/20 History extended release 12 hr mirtazapine 30 mg tablet 30 mg PO HS tab 02/13/20 02/20/20 History prucalopride 2 mg tablet 2 mg PO DAILY 02/13/20 02/20/20 History simethicone 125 mg capsule 125 mg PO BID PRN cap 02/13/20 02/20/20 History mirtazapine [Remeron] 30 mg PO HS 02/20/20 02/20/20 History 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% Hypercholesteremia (Chronic) Hyperlipidemia Hypertension (Chronic) Hypertension Lingular pneumonia (Acute) Macular degeneration of left eye Multiple myeloma PER --PT HAS LOW PLATELETS (LAST WAS below 10), RECEIVING PROCRIT EVERY 2 WEEKS Nasal bleeding (Acute) Osteoarthritis Prostate cancer 2008 RADIOACTIVE SEEDS IMPLANTED Rib fracture (Acute) Sleep apnea CPAP Weight loss Surgical History History of cardiac cath X3 2010, 2012 (2) History of carpal tunnel release RIGHT HAND X2 History of colonoscopy History of coronary artery bypass graft DOUBLE 2011 @ [facility] FOLLOWS DR. RODRIGUEZ History of heart artery stent 2012 X1 STENT @ [facility] FOLLOWS W DR. 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 Beliefs That Will Affect Care: None marital status: Current Living Situation: Family Other Information That Helps Us Care for You: No Feels Safe at Home: Yes Safety Concerns: Feels Safe At This Time Smoking Status: Former smoker Tobacco Type: cigars ; Do You Dip or Chew Tobacco: No ; Second Hand Exposure: No ; Tobacco Cessation Education Requested by Patient: No Hx Alcohol Use: No Hx Substance Use: No Review of Systems Review of Systems: As per HPI, all 10 systems reviewed, all other ROS negative Physical Exam Physical Exam: GENERAL: Comfortable, pleasant, slightly hard of hearing, no respiratory distress SKIN: Pallor , warm HEENT: Partial alopecia, pale palpebral conjunctivae, no ptosis, dry buccal mucosa NECK : Supple, no tenderness CHEST : Decreased breath sounds , no tenderness HEART : RRR, no obvious murmurs ABDOMEN: Marketed abdominal distention , central abdominal tenderness EXTREMITIES : Minimal LE swelling, no LE tenderness, no other conspicuous deformities noted NEUROLOGIC : Coherent, no facial asymmetry, slightly hard of hearing, no other gross focality Results & Data Results & Data ([facility] [place]) Vital Signs (Past 12 Hours) Vital Signs Temp Pulse Pulse Resp BP BP Pulse Ox 02/21/20 00:38 36.5 C 84 18 145/71 H 96 02/21/20 00:36 36.5 C 84 18 145/71 H 96 02/20/20 22:59 79 18 155/63 H 96 02/20/20 21:26 36.5 C 84 18 126/71 97 Laboratory Results Laboratory Results WBC 4.08 K/uL (4.8-10.8) L 02/20/20 21:54 RBC 4.23 M/uL (4.7-6.1) L 02/20/20 21:54 Hgb 10.7 g/dL (14.0-18.0) L 02/20/20 21:54 Hct 34.2 % (42-52) L 02/20/20 21:54 MCV 80.9 fL (80-100) 02/20/20 21:54 MCH 25.3 pg (25-34) 02/20/20 21:54 MCHC 31.3 g/dL (32-36) L 02/20/20 21:54 RDW Std Deviation 60.1 fL (36.4-46.3) H 02/20/20 21:54 RDW Coeff of Marguerite 22.0 % (11.5-14.5) H 02/20/20 21:54 Plt Count 29 K/uL (130-400) L* 02/20/20 21:54 Immature Gran % (Auto) 1.0 % 02/20/20 21:54 Neut % (Auto) 61.5 % 02/20/20 21:54 Lymph % (Auto) 21.3 % 02/20/20 21:54 [place] % (Auto) 15.2 % 02/20/20 21:54 Eos % (Auto) 0.0 % 02/20/20 21:54 Baso % (Auto) 1.0 % 02/20/20 21:54 Immature Gran # (Auto) 0.04 K/uL (0.00-0.02) H 02/20/20 21:54 Neut # (Auto) 2.51 K/uL (1.4-6.5) 02/20/20 21:54 Lymph # (Auto) 0.87 K/uL (1.2-3.4) L 02/20/20 21:54 [place] # (Auto) 0.62 K/uL (0.11-0.59) H 02/20/20 21:54 Eos # (Auto) 0.00 K/uL (0-0.5) 02/20/20 21:54 Baso # (Auto) 0.04 K/uL (0-0.2) 02/20/20 21:54 Absolute Nucleated RBC 0.24 K/uL (0-0) H 02/20/20 21:54 Nucleated RBC % (auto) 5.8 % 02/20/20 21:54 Platelet Estimate SIGNIFIC DECREASED (Normal) 02/20/20 21:54 Polychromasia 1+ 02/20/20 21:54 Hypochromasia Present 02/20/20 21:54 Anisocytosis Present 02/20/20 21:54 Echinocytes 2+ 02/20/20 21:54 Acanthocytes (Spur) 1+ 02/20/20 21:54 Sodium 135 mmol/L (136-145) L 02/20/20 21:54 Potassium 4.5 mmol/L (3.5-5.1) 02/20/20 21:54 Chloride 106 mmol/L (98-107) 02/20/20 21:54 Carbon Dioxide 19 mmol/L (21-32) L 02/20/20 21:54 Anion Gap 10.0 (3-11) 02/20/20 21:54 BUN 34 mg/dl (7-18) H 02/20/20 21:54 Creatinine 1.60 mg/dl (0.6-1.4) H 02/20/20 21:54 Est Cr Clr Drug Dosing Not Reportable 02/20/20 21:54 Est GFR ( Amer) 45.5 02/20/20 21:54 Est GFR (Non-Af Amer) 39.3 02/20/20 21:54 BUN/Creatinine Ratio 21.1 (10-20) H 02/20/20 21:54 Glucose 122 mg/dl (70-99) H 02/20/20 21:54 Lactate 1.1 mmol/L (0.4-2.0) 02/21/20 00:18 Calcium 9.0 mg/dl (8.5-10.1) 02/20/20 21:54 Total Bilirubin 1.2 mg/dl (0.2-1) H 02/20/20 21:54 AST 22 U/L (15-37) 02/20/20 21:54 ALT 21 U/L (12-78) 02/20/20 21:54 Alkaline Phosphatase 121 U/L (45-117) H 02/20/20 21:54 Troponin I < 0.015 ng/ml (0-0.045) 02/20/20 21:54 Total Protein 8.2 gm/dl (6.4-8.2) 02/20/20 21:54 Albumin 3.0 gm/dl (3.4-5.0) L 02/20/20 21:54 Globulin 5.2 gm/dl (2.5-4.0) H 02/20/20 21:54 Albumin/Globulin Ratio 0.6 (0.9-2) L 02/20/20 21:54 Lipase 53 U/L (73-393) L 02/20/20 21:54 Blood Type Cancelled 02/20/20 23:59 Rho(D) Type Cancelled 02/20/20 23:59 Antibody Screen Cancelled 02/20/20 23:[address] abdomen pelvis initial read: Mechanical colonic obstruction from volvulus/twisting process/internal hernia occurring in the left abdomen. Marketed colonic distention. Mesenteric edema. No extraluminal air. Recommend surgical consultation. Small to moderate right pleural effusion. Consolidative atelectasis. EKG as per my interpretation rate 80, NSR, LAD, LAFB, diffuse T wave abnormalities, low voltage Code Status & VTE Plan VTE Prophylaxis Plan VTE Prophylaxis will be ordered: Yes
--- NOTE | 2020-02-21 01:06 | Gastrointestinal Consultation ---
Date of Consultation February 21, 2020 Supervising Physician Co-Signing Physician Notes Urgent colonoscopy for decompression- consent obtained by his , they are aware of the risks. Getting one unit of platelets pre operatively. One enema. Lactate is normal pre procedure. History of Present Illness Reason for Consultation: Suspected volvulus Requesting Physician: Dr. Kaur History of Present Illness 84 yo male with a history of mds (gets periodic outpatient platelets) and also procrit, admitted today for concerns for an ileus. Burping a lot and also having diarrhea though some other reports of no bowel movements. Most of the history obtained from the who consults with her given he is hard of hearing. He does not take blood thinners. Denies any vomiting. Admission labs significant for anemia that is stable, platelets of 29. He had CT A/P without contrast showing a volvulus. Surgery has seen the patient and recommended decompression. patient and agreeable aware of the potential risks. He received a dose of IV abx, one enema, and receiving platelets. He is is no acute distress. Allergies Allergy/AdvReac Type Severity Reaction Status Date / Time tetanus toxoid, adsorbed Allergy Severe SWELLING Verified 02/20/20 22:15 Penicillins Allergy Intermediate HIVES Verified 02/20/20 22:15 CHAZ Inhibitors AdvReac Intermediate COUGH Verified 02/20/20 22:15 erythromycin base AdvReac Intermediate DIARRHEA Verified 02/20/20 22:15 Home Medications Home Medications Medication Instructions Recorded Confirmed Type cetirizine [Zyrtec] 10 mg PO QPM 05/19/18 02/20/20 History losartan 50 mg PO QAM 05/19/18 02/20/20 History metoprolol succinate 25 mg PO QAM 05/19/18 02/20/20 History multivitamin 1 tab PO QAM 05/19/18 02/20/20 History potassium chloride 20 meq PO BID 05/19/18 02/20/20 History Procrit 60,000 unit SUBCUT WK 06/19/19 02/20/20 History Ocuvite Eye Plus Multi 1 tab PO BID 09/18/19 02/20/20 History acetaminophen 500 mg capsule 500 mg PO Q8H PRN cap 02/13/20 02/20/20 History ascorbate calcium (vitamin C) 500 500 mg PO DAILY 02/13/20 02/20/20 History mg tablet dicyclomine 10 mg capsule 10 mg PO DAILY PRN cap 02/13/20 02/20/20 History fluticasone propionate 50 2 sprays INTNAS HS ml 02/13/20 02/20/20 History mcg/actuation nasal spray,suspension guaifenesin 600 mg tablet, 600 mg PO BID PRN 02/13/20 02/20/20 History extended release 12 hr mirtazapine 30 mg tablet 30 mg PO HS tab 02/13/20 02/20/20 History prucalopride 2 mg tablet 2 mg PO DAILY 02/13/20 02/20/20 History simethicone 125 mg capsule 125 mg PO BID PRN cap 02/13/20 02/20/20 History mirtazapine [Remeron] 30 mg PO HS 02/20/20 02/20/20 History Patient History Medical History Acute kidney injury Cancer of skin of left leg REMOVED IN OFFICE Chronic anemia Cough (Acute) Encounter for pre-operative examination 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, L 60% Hypercholesteremia (Chronic) Hyperlipidemia Hypertension (Chronic) Hypertension Lingular pneumonia (Acute) Macular degeneration of left eye Multiple myeloma PER --PT HAS LOW PLATELETS (LAST WAS below 10), RECEIVING PROCRIT EVERY 2 WEEKS Nasal bleeding (Acute) Osteoarthritis Prostate cancer 2008 RADIOACTIVE SEEDS IMPLANTED Rib fracture (Acute) Sleep apnea CPAP Weight loss Surgical History History of cardiac cath X3 2010, 2012 (2) History of carpal tunnel release RIGHT HAND X2 History of colonoscopy History of coronary artery bypass graft DOUBLE 2011 @ [facility] FOLLOWS DR. RODRIGUEZ History of heart artery stent 2013 X1 STENT @ [facility] FOLLOWS W DR. RODRIGUEZ History of tonsillectomy History of tooth extraction ALL TEETH Hx of vasectomy Family History Other No pertinent family history in first degree relatives Social History Preferred Language: Iranian Communication Ability: Effective Medical Facilities Section Director Required: No Beliefs That Will Affect Care: None marital status: Current Living Situation: Spouse Feels Safe at Home: Yes Smoking Status: Former smoker Tobacco Type: cigars ; Second Hand Exposure: Yes (FATHER SMOKED) ; Hx Alcohol Use: No Hx Substance Use: No Review of Systems Review of Systems: All systems reviewed & are unremarkable except as noted in HPI & below Physical Exam Physical Exam: Pale appearing male in nad Eyes: PERRL, conjunctivae normal, anicteric sclerae Respiratory: normal respiratory effort, lungs clear to auscultation Cardiovascular: RRR, no murmur, no edema Gastrointestinal (Abdomen): Distended, not taut, bowel sounds present though faint Results & Data ([facility]) Vital Signs (Past 12 Hours) Vital Signs Temp Pulse Pulse Resp BP BP Pulse Ox 02/21/20 00:52 36.4 C L 80 18 125/88 96 02/21/20 00:38 36.5 C 84 18 145/71 H 96 02/21/20 00:36 36.5 C 84 18 145/71 H 96 02/20/20 22:59 79 18 155/63 H 96 02/20/20 21:26 36.5 C 84 18 126/71 97 Labs sig for low platelets Ct scan reviewed by myself, surgery also reviewed the scan
[2020-02-21] MEDS ORDERED: MINERAL OIL 30 ML UDC ONE (02:01)
--- NOTE | 2020-02-21 02:16 | Anesthesiology Consultation ---
Date of Service February 21, 2020 Assessment & Plan Chart Review Chart Review: Acceptable Risk for Surgery Consults Requested none History Surgery Operation Date: 02/21/20 02:30 Proposed Procedures p Colonoscopy - Theresa Mera M.D. Height/Weight Height: 5 ft 8 in Allergies Allergy/AdvReac Type Severity Reaction Status Date / Time tetanus toxoid, adsorbed Allergy Severe SWELLING Verified 02/20/20 22:15 Penicillins Allergy Intermediate HIVES Verified 02/20/20 22:15 CHAZ Inhibitors AdvReac Intermediate COUGH Verified 02/20/20 22:15 erythromycin base AdvReac Intermediate DIARRHEA Verified 02/20/20 22:15 Medications Home Medications Medication Instructions Recorded Confirmed Last Taken cetirizine [Zyrtec] 10 mg PO QPM 05/19/18 02/20/20 10/05/19 losartan 50 mg PO QAM 05/19/18 02/20/20 10/06/19 metoprolol succinate 25 mg PO QAM 05/19/18 02/20/20 10/06/19 multivitamin 1 tab PO QAM 05/19/18 02/20/20 10/06/19 potassium chloride 20 meq PO BID 05/19/18 02/20/20 10/06/19 Procrit 60,000 unit SUBCUT WK 06/19/19 02/20/20 10/01/19 Ocuvite Eye Plus Multi 1 tab PO BID 09/18/19 02/20/20 10/06/19 acetaminophen 500 mg capsule 500 mg PO Q8H PRN cap 02/13/20 02/20/20 Unknown ascorbate calcium (vitamin C) 500 500 mg PO DAILY 02/13/20 02/20/20 Unknown mg tablet dicyclomine 10 mg capsule 10 mg PO DAILY PRN cap 02/13/20 02/20/20 Unknown fluticasone propionate 50 2 sprays INTNAS HS ml 02/13/20 02/20/20 Unknown mcg/actuation nasal spray,suspension guaifenesin 600 mg tablet, 600 mg PO BID PRN 02/13/20 02/20/20 Unknown extended release 12 hr mirtazapine 30 mg tablet 30 mg PO HS tab 02/13/20 02/20/20 Unknown prucalopride 2 mg tablet 2 mg PO DAILY 02/13/20 02/20/20 Unknown simethicone 125 mg capsule 125 mg PO BID PRN cap 02/13/20 02/20/20 Unknown mirtazapine [Remeron] 30 mg PO HS 02/20/20 02/20/20 Unknown NPO Date Last Intake of Fluids: 02/20/20 Time Last Intake of Fluids: 19:30 Date Last Intake of Solids: 02/20/20 Time Last Intake of Solids: 19:00 Past Medical History Medical History Acute kidney injury Cancer of skin of left leg REMOVED IN OFFICE Chronic anemia Cough (Acute) Encounter for pre-operative examination 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, L 60% Hypercholesteremia (Chronic) Hyperlipidemia Hypertension (Chronic) Hypertension Lingular pneumonia (Acute) Macular degeneration of left eye Multiple myeloma PER --PT HAS LOW PLATELETS (LAST WAS below 10), RECEIVING PROCRIT EVERY 2 WEEKS Nasal bleeding (Acute) Osteoarthritis Prostate cancer 2009 RADIOACTIVE SEEDS IMPLANTED Rib fracture (Acute) Sleep apnea CPAP Weight loss Past Family History Family History Other No pertinent family history in first degree relatives Past Surgical History Surgical History History of cardiac cath X3 2010, 2012 (2) History of carpal tunnel release RIGHT HAND X2 History of colonoscopy History of coronary artery bypass graft DOUBLE 2011 @ [facility] FOLLOWS DR. RODRIGUEZ History of heart artery stent 2012 X1 STENT @ [facility] FOLLOWS W DR. RODRIGUEZ History of tonsillectomy History of tooth extraction ALL TEETH Hx of vasectomy Social History Smoking Status: Former smoker tobacco type: cigars Hx Alcohol Use: No Hx Substance Use: No substance use type: does not use Physical Exam Vital Signs Last Vital Signs Temp 36.7 C 02/21/20 01:26 Pulse 81 02/21/20 01:38 Resp 18 02/21/20 01:38 BP 131/60 02/21/20 01:38 Pulse Ox 97 02/21/20 01:38 Testing Laboratory Results 02/20/20 21:54 02/20/20 21:54 Blood Type O Positive 02/21/20 00:17 Rho(D) Type Cancelled 02/20/20 23:59 Antibody Screen NEGATIVE 02/21/20 00:17
[2020-02-21] MEDS ORDERED: ATROPINE SULFATE 0.1 MG/ML 10ML SYR IV PRN (02:17)
[2020-02-21] MEDS ORDERED: fentaNYL citrate 100 MCG/2 ML VIAL IV PRN (02:17)
[2020-02-21] MEDS ORDERED: ePHEDrine sulfate 50 MG/ML AMP IV PRN (02:17)
[2020-02-21] MEDS ORDERED: fentaNYL citrate 100 MCG/2 ML VIAL ONE (02:24)
[2020-02-21] MEDS ORDERED: PIPERACILL/TAZOBAC CONSULT ACTIVE PRN (02:25)
--- NOTE | 2020-02-21 02:58 | Operative Report ---
Post Operative Report Pre & Post Diagnosis Operation Date: 02/21/20 02:30 Pre-Op Diagnosis: Volvulus. Post-Op Diagnosis: Decompression of volvulus. I identified the patient and participated in the time-out.: Yes Procedure Operation Date: 02/21/20 02:30 Actual Procedures p Colonoscopy - Theresa Mera M.D. Surgeon Theresa Mera Button Decorating Machine Operator Iram Anderson Estimated Blood Loss 10 Findings Consistent with Post-Op Diagnosis Specimens NOne Description of Procedure Colonic decompression I attest to the content of the Intraoperative Record and any orders documented therein. Any exceptions are noted below.
--- NOTE | 2020-02-21 03:06 | Anesthesiology Progress Note ---
Date of Service February 21, 2020 Anesthesia Post Procedure Vital Signs Vital Signs: Temp Pulse Pulse Resp BP BP Pulse Ox 02/21/20 03:02 72 21 142/57 H 100 02/21/20 02:57 36.5 C 72 21 143/57 H 100 02/21/20 01:38 81 18 131/60 97 02/21/20 01:26 36.7 C 75 14 137/62 98 02/21/20 01:07 36.8 C 80 18 142/76 H 98 02/21/20 00:52 36.4 C L 80 18 125/88 96 02/21/20 00:38 36.5 C 84 18 145/71 H 96 02/21/20 00:36 36.5 C 84 18 145/71 H 96 02/20/20 22:59 79 18 155/63 H 96 02/20/20 21:26 36.5 C 84 18 126/71 97 Pain Intensity Abdomen: Pain Intensity: 5 Transfer of Care Handoff Completed per policy Notes Mental Status: alert / awake / arousable and participated in evaluation Patient Amnestic to Procedure: Yes Nausea / Vomiting: adequately controlled Pain: adequately controlled Airway Patency, RR, SpO2: stable & adequate BP & HR: stable & adequate Hydration State: stable & adequate Anesthetic Complications: no major complications apparent
[2020-02-21] MEDS ORDERED: ACETAMINOPHEN 325 MG TAB PO PRN (03:38)
[2020-02-21] MEDS ORDERED: PROMETHAZINE HCL 12.5 MG in SODIUM CHLORIDE 0.9% 50 ML IV PRN (03:38)
[2020-02-21] MEDS ORDERED: NON-FORMULARY MEDICATION (Acetaminophen 500 MG) PO PRN (03:38)
[2020-02-21] MEDS ORDERED: TRAMADOL HCL 50 MG TABLET PO PRN (03:38)
[2020-02-21] MEDS ORDERED: HYDROmorphone INJ 0.5 MG/0.5 ML SYR IV PRN (03:38)
[2020-02-21] MEDS: LACTATED RINGER'S 1,000 ML IV SCH ×2 (04:51→17:12)
[2020-02-21] MEDS: PIPERACILLIN/TAZOBACTAM 3.375 GM in DEXTROSE 5% 100 ML IV SCH ×3 (06:19→20:23)
[2020-02-21 06:24] LABS: BUN Creatinine Ratio 22.3 (10-20); Calcium 7.9 mg/dl (8.5-10.1); Est GFR (African American) 52.1; Mean Corpuscular Hgb Conc 31.6 g/dL (32-36); Nucleated RBC # (auto) 0.14 K/uL (0-0); Nucleated RBC % (auto) 4.1 %; Platelet Count 27 K/uL (130-400); Potassium 4.1 mmol/L (3.5-5.1)
[2020-02-21 06:25] LABS: Anisocytosis Present; Basophils # (auto) 0.02 K/uL (0-0.2); Basophils % (auto) 0.6 %; Dohle Bodies 1+; Giant Platelets 3+; Hematocrit (blood only) 23.1 % (42-52); Hemoglobin 7.3 g/dL (14.0-18.0); Hypochromasia Present; Hypogranular Neutrophils 1+; Immature Granulocytes # (auto) 0.04 K/uL (0.00-0.02); Immature Granulocytes % (auto) 1.2 %; Lymphocytes # (auto) 0.99 K/uL (1.2-3.4); Lymphocytes % (auto) 28.5 %; Mean Corpuscular Hemoglobin 25.4 pg (25-34); Mean Corpuscular Volume 80.5 fL (80-100); Monocytes # (auto) 0.54 K/uL (0.11-0.59); Monocytes % (auto) 15.6 %; Neutrophils # (auto) 1.88 K/uL (1.4-6.5); Neutrophils % (auto) 54.1 %; Platelet Estimate SIGNIFIC DECREASED (Normal); RDW Coefficient of Variation 21.5 % (11.5-14.5); RDW Standard Deviation 60.1 fL (36.4-46.3); Red Blood Count 2.87 M/uL (4.7-6.1); Schistocytes 1+; Target Cells 1+; Tear Drop Cells 1+; White Blood Count 3.47 K/uL (4.8-10.8)
--- NOTE | 2020-02-21 06:50 | XRay Report ---
XR chest 1V portable CLINICAL HISTORY: pleural effusion on ct abd COMPARISON STUDY: Chest CT September 04, 2018. Chest radiograph September 18, 2019. FINDINGS: Marked gaseous distention of visualized portions of the colon are noted within the abdomen. There are median sternotomy wires and mediastinal surgical clips. No pneumothorax is present. There is a small right pleural effusion. Bibasilar opacities favor atelectasis. There is pulmonary vascular congestion without overt pulmonary edema. IMPRESSION: 1. Pulmonary vascular congestion. 2. Small right pleural effusion. 3. Bibasilar opacities that favor atelectasis. 4. Marked gaseous distention of visualized portions of the colon, better depicted on CT of the abdome n and pelvis. ACT 112: Negative or not required by law. Electronically signed by: Levi Shore M.D. 02/21/2020 6:49 AM
--- NOTE | 2020-02-21 08:01 | CT Scan Report ---
CT SCAN OF THE ABDOMEN AND PELVIS WITHOUT IV CONTRAST CLINICAL HISTORY: Generalized abdominal pain. Diarrhea. COMPARISON STUDY: Abdominal radiographs dated 12/30/2017. TECHNIQUE: CT scan of the abdomen and pelvis is performed from the lung bases to the proximal femora. Images are reviewed in the axial, sagittal, and coronal planes. IV contrast was not administered for this examination. Note that the examination was performed in significantly suboptimal fashion withou t oral and IV contrast. The examination is also compromised by motion artifact. A dose lowering techn ique was utilized adhering to the principles of ALARA. CT DOSE: 297.13 mGy.cm FINDINGS: Lung bases: Midline sternotomy wires are noted. The heart is normal in size and without pericardial e ffusion. The coronary arteries and mitral annulus are densely calcified. There is a small right pleur al effusion and bibasilar atelectasis. Liver: Evaluation of the liver is degraded by streak and motion artifact. The unenhanced liver is alejandra ssly normal in size, contour, and attenuation. There is no intrahepatic biliary ductal dilatation. Gallbladder: There are numerous calcified gallstones with no CT evidence of acute cholecystitis. Spleen: The spleen is enlarged measuring 16 cm in length. Pancreas: The unenhanced pancreas is atrophic. Numerous parenchymal calcifications suggesting chronic pancreatitis. Adrenal glands: Unremarkable. Kidneys: The unenhanced kidneys are atrophic and without hydronephrosis. There is a 4 mm nonobstructi ng calculus in the lower pole of the right kidney. A punctate nonobstructing calculus is seen in the left lower pole. There is no evidence of contour deforming renal mass lesion. Abdominal vasculature: The abdominal aorta is normal in course and caliber noting advanced atheroscle rotic calcification. Bowel: The colon is markedly distended, measuring up to 10 cm in diameter. There is an air-fluid leve l throughout the colon, with focal twisting suggested in the left lower quadrant involving the distal descending/proximal sigmoid colon. There is surrounding inflammation and fluid. The rectosigmoid is decompressed, and the findings are highly concerning for a colonic volvulus. The small bowel loops ar e normal in caliber. There is no pneumatosis intestinalis or portal venous gas. The appendix is nonv isualized. Peritoneum: There is trace perisplenic ascites. No intraperitoneal free air is seen. Lymphadenopathy: None. Pelvic viscera: The prostate gland is diminutive and heterogeneous with brachytherapy seeds in place. The bladder is normal as visualized. Skeletal structures: The skeletal structures are osteopenic. There is mild lumbosacral spondylosis. T here are healed right-sided rib fractures. No lytic or blastic lesions are seen. Soft tissues: The patient is cachectic. IMPRESSION: 1. Suboptimal examination without oral and IV contrast. The examination is also degraded by motion ar tifact. 2. 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 Surgical consultati on is advised. 3. There is trace abdominal ascites. There is no pneumatosis intestinalis, portal venous gas, or intr aperitoneal free air. 4. The small bowel loops are normal in caliber. 5. Small right pleural effusion. 6. Cholelithiasis. 7. Splenomegaly. 8. There is evidence of chronic pancreatitis. 9. Bilateral nephrolithiasis. 10. Additional findings as above. ACT 112: Negative or not required by law. Electronically signed by: Norman Domingo M.D. 02/21/2020 8:00 AM
[2020-02-21] MEDS: MULTIVITAMIN TAB PO SCH (08:14)
[2020-02-21] MEDS: CEROVITE ADV FORMULA TAB PO SCH (08:14)
[2020-02-21] MEDS: METOPROLOL SUCC 25MG EXT REL TAB PO SCH (08:14)
--- NOTE | 2020-02-21 08:24 | XRay Report ---
KUB CLINICAL HISTORY: Follow up bowel obstruction. COMPARISON STUDY: CT of the abdomen and pelvis February 20, 2020. FINDINGS: Incidental note is made of brachytherapy seeds within the prostate gland. There are gallsto yen within the gallbladder. Gaseous distention of the colon shown on prior CT has markedly improved s daisy prior exam. There is a residual loop of moderately dilated colon within the right upper quadrant at the level of the hepatic flexure, measuring 8.1 cm in caliber. No small bowel dilatation is noted by radiography. IMPRESSION: Marked improvement in colonic dilatation since prior CT. Loop of moderately dilated colo n at the level of the hepatic flexure. ACT 112: Negative or not required by law. Electronically signed by: Levi Shore M.D. 02/21/2020 8:22 AM
[2020-02-21] MEDS ORDERED: LOSARTAN POTASSIUM 50 MG TAB PO SCH ×2 (09:00)
--- NOTE | 2020-02-21 09:00 | Gastroenterology Progress Note ---
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 This AM he is clinically feeling well w/ soft, non-distended abdomen and denies any abdominal pain. KUB official read pending Await KUB Appreciate surgical recommendation Pending read of KUB will discuss dietary advancement and bowel regimen Will follow. Thank you for allowing us to participate in the care of this patient. Please call with any acute changes, questions or concerns. Please see addendum below with additional recommendation from my supervising physician. Admission and Anticipated Discharge Date Admission Date: February 21, 2020 Supervising Physician Co-Signing Physician Notes Attg add: I interviewed and examined pt, reviewed chartand labs. Pt denies abd pain, passing small amts flatus and aida PO. On exam, his abd is mildly distended. KUB this am much improved compared to admission CT. RECS: Keep K > 4, Mag > 2. Encouarage activitiy. Bowel regimen, including resumption out pt Precalopride. Pt should not be on Bentyl - please d/c when planning to discharge. No clear need abx from GI standpoint. Surg consult planing for sigmoid resection. Subjective Pt was seen and evaluated, chart reviewed S/P colonoscopy w/ decompression of volvulus feeling well no abd pain no nausea, vomiting passing gas but no stool KUB this AM pending read Review of Systems Constitutional: no fever, no chills and no fatigue Respiratory: no cough and no dyspnea Cardiovascular: no chest pain and no dyspnea Gastrointestinal: no abdominal pain, no bloating, no blood in stools and no melena Physical Exam Constitutional: + ill appearing (chronically ill appearing); no acute distress Neck: trachea midline Respiratory: normal respiratory effort Cardiovascular: Rate/Rhythm: regular rate Gastrointestinal (Abdomen): normal bowel sounds, soft, nontender, no hepatosplenomegaly Results & Data ([facility]) Vital Signs (Past 12 Hours) Vital Signs Temp Pulse Pulse Pulse Resp BP BP 02/21/20 07:11 36.4 C L 66 16 02/21/20 06:24 36.7 C 70 20 02/21/20 05:15 36.3 C L 70 20 02/21/20 04:59 75 02/21/20 04:21 36.6 C 72 20 02/21/20 04:20 36.7 C 76 20 157/69 H 02/21/20 03:17 36.7 C 72 20 02/21/20 03:12 66 20 131/52 L 02/21/20 03:06 72 21 144/58 H 02/21/20 03:02 72 21 142/57 H 02/21/20 02:57 36.5 C 72 21 143/57 H 02/21/20 01:38 81 18 131/60 02/21/20 01:26 36.7 C 75 14 137/62 02/21/20 01:07 36.8 C 80 18 142/76 H 02/21/20 00:52 36.4 C L 80 18 125/88 02/21/20 00:38 36.5 C 84 18 145/71 H 02/21/20 00:36 36.5 C 84 18 145/71 H 02/20/20 22:59 79 18 155/63 H 02/20/20 21:26 36.5 C 84 18 126/71 BP Pulse Ox 02/21/20 07:11 129/51 L 97 02/21/20 06:24 149/61 H 98 02/21/20 05:15 133/62 97 02/21/20 04:59 02/21/20 04:21 159/66 H 93 02/21/20 04:20 99 02/21/20 03:17 100 02/21/20 03:12 100 02/21/20 03:06 99 02/21/20 03:02 100 02/21/20 02:57 100 02/21/20 01:38 97 02/21/20 01:26 98 02/21/20 01:07 98 02/21/20 00:52 96 02/21/20 00:38 96 02/21/20 00:36 96 02/20/20 22:59 96 02/20/20 21:26 97 Laboratory Results 02/21/20 02/21/20 02/21/20 Range/Units 05:47 05:47 05:47 WBC 3.47 L (4.8-10.8) K/uL RBC 2.87 L (4.7-6.1) M/uL Hgb 7.3 L D (14.0-18.0) g/dL Hct 23.1 L (42-52) % MCV 80.5 (80-100) fL MCH 25.4 (25-34) pg MCHC 31.6 L (32-36) g/dL RDW Std Deviation 60.1 H (36.4-46.3) fL RDW Coeff of Marguerite 21.5 H (11.5-14.5) % Plt Count 27 L* (130-400) K/uL Immature Gran % (Auto) 1.2 % Neut % (Auto) 54.1 % Lymph % (Auto) 28.5 % [place] % (Auto) 15.6 % Eos % (Auto) 0.0 % Baso % (Auto) 0.6 % Immature Gran # (Auto) 0.04 H (0.00-0.02) K/uL Neut # (Auto) 1.88 (1.4-6.5) K/uL Lymph # (Auto) 0.99 L (1.2-3.4) K/uL [place] # (Auto) 0.54 (0.11-0.59) K/uL Eos # (Auto) 0.00 (0-0.5) K/uL Baso # (Auto) 0.02 (0-0.2) K/uL Absolute Nucleated RBC 0.14 H (0-0) K/uL Nucleated RBC % (auto) 4.1 % Hypogranular Neuts 1+ Dohle Bodies 1+ Platelet Estimate SIGNIFIC DECREASED (Normal) Giant Platelets 3+ Polychromasia Hypochromasia Present Anisocytosis Present Target Cells 1+ Tear Drop Cells 1+ Echinocytes Acanthocytes (Spur) Schistocytes 1+ Sodium 137 (136-145) mmol/L Potassium 4.1 (3.5-5.1) mmol/L Chloride 110 H (98-107) mmol/L Carbon Dioxide 20 L (21-32) mmol/L Anion Gap 7.0 (3-11) BUN 32 H (7-18) mg/dl Creatinine 1.43 H (0.6-1.4) mg/dl Est Cr Clr Drug Dosing 32.0 Est GFR ( Amer) 52.1 Est GFR (Non-Af Amer) 45.0 BUN/Creatinine Ratio 22.3 H (10-20) Glucose 84 (70-99) mg/dl Lactate 0.8 (0.4-2.0) mmol/L Calcium 7.9 L (8.5-10.1) mg/dl Total Bilirubin (0.2-1) mg/dl AST (15-37) U/L ALT (12-78) U/L Alkaline Phosphatase (45-117) U/L Troponin I (0-0.045) ng/ml Total Protein (6.4-8.2) gm/dl Albumin (3.4-5.0) gm/dl Globulin (2.5-4.0) gm/dl Albumin/Globulin Ratio (0.9-2) Lipase (73-393) U/L Blood Type Rho(D) Type Antibody Screen 02/21/20 02/21/20 02/20/20 Range/Units 00:18 00:17 23:59 WBC (4.8-10.8) K/uL RBC (4.7-6.1) M/uL Hgb (14.0-18.0) g/dL Hct (42-52) % MCV (80-100) fL MCH (25-34) pg MCHC (32-36) g/dL RDW Std Deviation (36.4-46.3) fL RDW Coeff of Marguerite (11.5-14.5) % Plt Count (130-400) K/uL Immature Gran % (Auto) % Neut % (Auto) % Lymph % (Auto) % [place] % (Auto) % Eos % (Auto) % Baso % (Auto) % Immature Gran # (Auto) (0.00-0.02) K/uL Neut # (Auto) (1.4-6.5) K/uL Lymph # (Auto) (1.2-3.4) K/uL [place] # (Auto) (0.11-0.59) K/uL Eos # (Auto) (0-0.5) K/uL Baso # (Auto) (0-0.2) K/uL Absolute Nucleated RBC (0-0) K/uL Nucleated RBC % (auto) % Hypogranular Neuts Dohle Bodies Platelet Estimate (Normal) Giant Platelets Polychromasia Hypochromasia Anisocytosis Target Cells Tear Drop Cells Echinocytes Acanthocytes (Spur) Schistocytes Sodium (136-145) mmol/L Potassium (3.5-5.1) mmol/L Chloride (98-107) mmol/L Carbon Dioxide (21-32) mmol/L Anion Gap (3-11) BUN (7-18) mg/dl Creatinine (0.6-1.4) mg/dl Est Cr Clr Drug Dosing Est GFR ( Amer) Est GFR (Non-Af Amer) BUN/Creatinine Ratio (10-20) Glucose (70-99) mg/dl Lactate 1.1 (0.4-2.0) mmol/L Calcium (8.5-10.1) mg/dl Total Bilirubin (0.2-1) mg/dl AST (15-37) U/L ALT (12-78) U/L Alkaline Phosphatase (45-117) U/L Troponin I (0-0.045) ng/ml Total Protein (6.4-8.2) gm/dl Albumin (3.4-5.0) gm/dl Globulin (2.5-4.0) gm/dl Albumin/Globulin Ratio (0.9-2) Lipase (73-393) U/L Blood Type O Positive Cancelled Rho(D) Type Cancelled Antibody Screen NEGATIVE Cancelled 02/20/20 02/20/20 Range/Units 21:54 21:54 WBC 4.08 L (4.8-10.8) K/uL RBC 4.23 L (4.7-6.1) M/uL Hgb 10.7 L (14.0-18.0) g/dL Hct 34.2 L (42-52) % MCV 80.9 (80-100) fL MCH 25.3 (25-34) pg MCHC 31.3 L (32-36) g/dL RDW Std Deviation 60.1 H (36.4-46.3) fL RDW Coeff of Marguerite 22.0 H (11.5-14.5) % Plt Count 29 L* (130-400) K/uL Immature Gran % (Auto) 1.0 % Neut % (Auto) 61.5 % Lymph % (Auto) 21.3 % [place] % (Auto) 15.2 % Eos % (Auto) 0.0 % Baso % (Auto) 1.0 % Immature Gran # (Auto) 0.04 H (0.00-0.02) K/uL Neut # (Auto) 2.51 (1.4-6.5) K/uL Lymph # (Auto) 0.87 L (1.2-3.4) K/uL [place] # (Auto) 0.62 H (0.11-0.59) K/uL Eos # (Auto) 0.00 (0-0.5) K/uL Baso # (Auto) 0.04 (0-0.2) K/uL Absolute Nucleated RBC 0.24 H (0-0) K/uL Nucleated RBC % (auto) 5.8 % Hypogranular Neuts Dohle Bodies Platelet Estimate SIGNIFIC DECREASED (Normal) Giant Platelets Polychromasia 1+ Hypochromasia Present Anisocytosis Present Target Cells Tear Drop Cells Echinocytes 2+ Acanthocytes (Spur) 1+ Schistocytes Sodium 135 L (136-145) mmol/L Potassium 4.5 (3.5-5.1) mmol/L Chloride 106 (98-107) mmol/L Carbon Dioxide 19 L (21-32) mmol/L Anion Gap 10.0 (3-11) BUN 34 H (7-18) mg/dl Creatinine 1.60 H (0.6-1.4) mg/dl Est Cr Clr Drug Dosing Not Reportable Est GFR ( Amer) 45.5 Est GFR (Non-Af Amer) 39.3 BUN/Creatinine Ratio 21.1 H (10-20) Glucose 122 H (70-99) mg/dl Lactate (0.4-2.0) mmol/L Calcium 9.0 (8.5-10.1) mg/dl Total Bilirubin 1.2 H (0.2-1) mg/dl AST 22 (15-37) U/L ALT 21 (12-78) U/L Alkaline Phosphatase 121 H (45-117) U/L Troponin I < 0.015 (0-0.045) ng/ml Total Protein 8.2 (6.4-8.2) gm/dl Albumin 3.0 L (3.4-5.0) gm/dl Globulin 5.2 H (2.5-4.0) gm/dl Albumin/Globulin Ratio 0.6 L (0.9-2) Lipase 53 L (73-393) U/L Blood Type Rho(D) Type Antibody Screen
--- NOTE | 2020-02-21 10:26 | Surgery Progress Note ---
Date of Service February 21, 2020 Assessment & Plan (1) Abdominal distention: -etiology unclear, but may be due to volvulus or internal hernia -as thrombocytopenia noted, would be hesitant to take right to surgery -recommend hospitalist admission and GI evaluation for consideration of colonoscopy prior to any surgical intervention: -pt. seen and examined with Dr. Blood: -he discussed with GI the need for urgent colonoscopy, they wish to provide platelet transfusion prior to any endoscopy -will follow along while in hospital Patient underwent successful colonoscopy to reduce sigmoid volvulus The patient is a high risk for recurrence normally would recommend a sigmoid resection Given the patient's overlying pathology discussed the situation with the medical service and they will address it with the family on their wishes The patient is a high risk for complication from a sigmoid resection due to the underlying medical condition Subjective Feels much better today no abdominal complaints Physical Exam Physical Exam: He is alert coherent resting comfortably The abdomen is completely benign Results & Data Vital Signs (Past 12 Hours) Vital Signs Temp Pulse Pulse Pulse Resp BP BP 02/21/20 07:11 36.4 C L 66 16 02/21/20 06:24 36.7 C 70 20 02/21/20 05:15 36.3 C L 70 20 02/21/20 04:59 75 02/21/20 04:21 36.6 C 72 20 02/21/20 04:20 36.7 C 76 20 157/69 H 02/21/20 03:17 36.7 C 72 20 02/21/20 03:12 66 20 131/52 L 02/21/20 03:06 72 21 144/58 H 02/21/20 03:02 72 21 142/57 H 02/21/20 02:57 36.5 C 72 21 143/57 H 02/21/20 01:38 81 18 131/60 02/21/20 01:26 36.7 C 75 14 137/62 02/21/20 01:07 36.8 C 80 18 142/76 H 02/21/20 00:52 36.4 C L 80 18 125/88 02/21/20 00:38 36.5 C 84 18 145/71 H 02/21/20 00:36 36.5 C 84 18 145/71 H 02/20/20 22:59 79 18 155/63 H BP Pulse Ox 02/21/20 07:11 129/51 L 97 02/21/20 06:24 149/61 H 98 02/21/20 05:15 133/62 97 02/21/20 04:59 02/21/20 04:21 159/66 H 93 02/21/20 04:20 99 02/21/20 03:17 100 02/21/20 03:12 100 02/21/20 03:06 99 02/21/20 03:02 100 02/21/20 02:57 100 02/21/20 01:38 97 02/21/20 01:26 98 02/21/20 01:07 98 02/21/20 00:52 96 02/21/20 00:38 96 02/21/20 00:36 96 02/20/20 22:59 96 PG Care Time/CCT Total # of Minutes Spent Total Time Spent with Patient: Total time spent is greater than 50% in coordination of care (as documented) at patient's floor/unit and/or counseling patient: Coding Level of Care Code 44347 Subseq Hosp Care Lvl 3 Diagnoses Abdominal distention R14.0
[2020-02-21] MEDS: POLYETHYLENE (MIRALAX) 17 GM PACK PO SCH ×2 (13:22→20:22)
[2020-02-21 14:09] LABS: INR 1.3 (0.9-1.1); Prothrombin Time 13.4 Seconds (9.0-12.0)
[2020-02-21 14:31] LABS: Hematocrit (blood only) 26.5 % (42-52); Hemoglobin 8.3 g/dL (14.0-18.0); Mean Corpuscular Hemoglobin 24.9 pg (25-34); Mean Corpuscular Hgb Conc 31.3 g/dL (32-36); Mean Corpuscular Volume 79.6 fL (80-100); Nucleated RBC # (auto) 0.14 K/uL (0-0); Nucleated RBC % (auto) 4.2 %; Platelet Count 27 K/uL (130-400); RDW Coefficient of Variation 21.8 % (11.5-14.5); RDW Standard Deviation 59.4 fL (36.4-46.3); Red Blood Count 3.33 M/uL (4.7-6.1); White Blood Count 3.32 K/uL (4.8-10.8)
[2020-02-21 14:33] LABS: Anisocytosis Present; Basophils # (auto) 0.02 K/uL (0-0.2); Basophils % (auto) 0.6 %; Echinocytes 2+; Immature Granulocytes # (auto) 0.07 K/uL (0.00-0.02); Immature Granulocytes % (auto) 2.1 %; Lymphocytes # (auto) 1.35 K/uL (1.2-3.4); Lymphocytes % (auto) 40.7 %; Monocytes # (auto) 0.43 K/uL (0.11-0.59); Neutrophils # (auto) 1.45 K/uL (1.4-6.5); Neutrophils % (auto) 43.6 %; Schistocytes 1+
--- NOTE | 2020-02-21 14:38 | Hospitalist Progress Note ---
Date of Service February 21, 2020 Assessment & Plan (1) Volvulus: decompressive colonoscopy overnight with clinical improvement today. However, some persistent abdominal tenderness is present. Pt remains NPO, but surgeon is fine with clear diet progressing to full liquids in the next few days. Pt wishes to proceed with sigmoid resection, and will need a bowel prep with surgery likely early next week. Current [facility] stock of platelets is one bag with two on the way this evening. Dozens of pints of blood are available. Platelets at this time are 27K with a threshold of 20K to transfuse without bleeding, and 30K preoperatively. So will hold off on any tranfusion at this time. Also H/H came up since this morning, and no need for blood transfusion at this time. Pt is Procrit dependent, and typically gets a once weekly platelet transfusion. GI remains on the case, available for another decompressive colonoscopy should the need arise. GI put in for scheduled laxatives to keep his bowel moving. Holding home Motegrity and dicyclomine. Will request cardiac preoperative assessment. Per Baird criteria, with his age and surgery type, he has a 3% risk of serious yvan-operative complication and a 1% chance of cardiac . If he doesn't move forward with the surgery he also has a high likelihood of recurrence of the volvulus which could be fatal. (2) Abdominal pain: Improved, advancing diet cautiously. Would avoid narcotics if possible. Bowel regimen and diet as above. 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 Receives procrit every Tuesday. H/H improved to 8.3/26 since this morning. No active bleeding is present. (4) Generalized weakness: likely related to significant weight loss and malnutrition. PT/OT prior to discharge to home. (5) Severe protein-calorie malnutrition: Will consult nutrition. For now, in the setting of bowel prep, diet will be restricted to clears/full liquids. Appreciate assessment of nutrition goals and close monitoring in the hospital. (6) Hypertension: Currently slightly hypotensive in the 90s systolic. (7) CAD, multiple vessel: chronic, stable. History includes CABG x 2 with a MILLER to the LAD and a SVG to the LC on 11/05/2010. He also had recurrent angina status post PCI fo the distal left main coronary artery with a drug eluting stent in November 2012. He is free of chest pain and EKG on arrival revealed no active ischemia. . Surgery requesting formal preoperative assessment. (8) Pancytopenia: 2/2 MDS per bone marrow performed in 2017. Receives regular procrit and platelet transfusions since that time. Follows with [facility]. (9) MDS (myelodysplastic syndrome): as above. (10) Prostate cancer: s/p XRT over ten years ago. (11) DVT prophylaxis: SCDs, chemoprophylaxis contraindicated in setting of thrombocytopenia. DNR/DNI Dispo-uncertain but would plan for hospitalized through the weekend until patient can undergo bowel surgery early next week after bowel prep over the weekend. I spoke to the and son regarding risks and benefits of procedure and outlined the tentative plan. All questions were answered to their satisfaction. DO Simona Aguilar Hospitalist Admission and Anticipated Discharge Date Admission Date: February 21, 2020 Subjective 84 yo M presented with acute volvulus last evening. Surgery evaluated him and ultimately GI performed a decompression colonoscopy. Pt feels better and feels his abdomen is getting softer, however, reports no flatus and has some persistent abdominal tenderness to palpation on the left side. The patient also reports a 60 lb weight loss in the last 6 months reporting apathy toward food and low appetite. He also reports taking imodium regularly for chronic diarrhea and took two capsules yesterday morning. I spoke with the patient about a possible partial bowel resection because of the high risk for recurrence of volvulus, and he verbalized understanding of the ris ks and benefits and the possible prolonged recovery time surrounding this type of surgery. He also verbalized understanding that he would be a higher risk patient in the setting of his MDS with chronic thrombocytopenia and current anemic state. I spoke with the by phone who wishes to speak with her son, Jacob Arechiga, but would be supportive of her 's informed decision. Review of Systems Review of Systems: All systems reviewed & are unremarkable except as noted in Subjective Physical Exam Physical Exam: CONSTITUTIONAL: thin, frail, vitals as above, generally well- appearing EYES: normal conjunctivae, no scleral icterus ENT: external ear and nose normal, MMM RESPIRATORY: clear to auscultation bilaterally, no crackles, rales or wheezes, normal respiratory effort CARDIOVASCULAR: regular rate and rhythm, S1 and 2 heard without murmurs, gallops or rubs, no JVD, no peripheral edema GASTROINTESTINAL: normal bowel sounds, soft, mild TTP in left upper and lower quadrants with more severe epigastric tenderness. MUSCULOSKELETAL: generally deconditioned but moves all extremities equally. SKIN: warm and dry NEUROLOGIC: No facial palsy, no dysarthria. CN 2-12 grossly intact, no sensory deficit, normal cognition, normal speech, no gross focal deficits. PSYCHIATRIC: alert cooperative and oriented to person, place and time. Euthymic mood, makes good eye contact, language grossly intact, recent and remote memory grossly intact. Results & Data Results & Data ([facility]) Vital Signs (Past 12 Hours) Vital Signs Temp Pulse Pulse Pulse Resp BP BP 02/21/20 11:26 72 02/21/20 11:18 36.5 C 70 16 95/47 L 02/21/20 07:11 36.4 C L 66 16 129/51 L 02/21/20 06:24 36.7 C 70 20 149/61 H 02/21/20 05:15 36.3 C L 70 20 133/62 02/21/20 04:59 75 02/21/20 04:21 36.6 C 72 20 159/66 H 02/21/20 04:20 36.7 C 76 20 157/69 H 02/21/20 03:17 36.7 C 72 20 02/21/20 03:12 66 20 131/52 L 02/21/20 03:06 72 21 144/58 H 02/21/20 03:02 72 21 142/57 H 02/21/20 02:57 36.5 C 72 21 143/57 H Pulse Ox 02/21/20 11:26 02/21/20 11:18 95 02/21/20 07:11 97 02/21/20 06:24 98 02/21/20 05:15 97 02/21/20 04:59 02/21/20 04:21 93 02/21/20 04:20 99 02/21/20 03:17 100 02/21/20 03:12 100 02/21/20 03:06 99 02/21/20 03:02 100 02/21/20 02:57 100 Laboratory Results Short CBC 02/20/20 02/21/20 02/21/20 Range/Units 21:54 05:47 13:42 WBC 4.08 L 3.47 L 3.32 L (4.8-10.8) K/uL Hgb 10.7 L 7.3 L D 8.3 L (14.0-18.0) g/dL Hct 34.2 L 23.1 L 26.5 L (42-52) % Plt Count 29 L* 27 L* 27 L* (130-400) K/uL BMP 02/20/20 02/21/20 21:54 05:47 Sodium 135 L 137 Potassium 4.5 4.1 Chloride 106 110 H Carbon Dioxide 19 L 20 L BUN 34 H 32 H Creatinine 1.60 H 1.43 H Glucose 122 H 84 Calcium 9.0 7.9 L Cardiac Enzymes 02/20/20 Range/Units 21:54 Troponin I < 0.015 (0-0.045) ng/ml Liver Function 02/20/20 Range/Units 21:54 Total Bilirubin 1.2 H (0.2-1) mg/dl AST 22 (15-37) U/L ALT 21 (12-78) U/L Alkaline Phosphatase 121 H (45-117) U/L Albumin 3.0 L (3.4-5.0) gm/dl Diagnostic Findings KUB CLINICAL HISTORY: Follow up bowel obstruction. COMPARISON STUDY: CT of the abdomen and pelvis February 20, 2020. FINDINGS: Incidental note is made of brachytherapy seeds within the prostate gland. There are gallstones within the gallbladder. Gaseous distention of the colon shown on prior CT has markedly improved since prior exam. There is a residual loop of moderately dilated colon within the right upper quadrant at the level of the hepatic flexure, measuring 8.1 cm in caliber. No small bowel dilatation is noted by radiography. IMPRESSION: Marked improvement in colonic dilatation since prior CT. Loop of moderately dilated colon at the level of the hepatic flexure. Medications Administered Current Inpatient Medications Acetaminophen (Tylenol) 650 mg PO Q4H PRN PRN Reason: Pain or Fever Stop: 03/22/20 03:37 Bisacodyl (Dulcolax) 5 mg PO ONE ONE Stop: 02/21/20 17:01 Cetirizine HCl (Zyrtec) 10 mg PO QPM [facility] Stop: 03/22/20 20:59 Fluticasone Propionate (Flonase) 2 sprays NA HS [facility] Stop: 03/22/20 20:59 Hydromorphone HCl (Dilaudid) 0.25 mg IV Q3H PRN PRN Reason: Pain Stop: 03/06/20 03:37 Lactated Ringer's (Lr) 1,000 mls @ 75 mls/hr IV .[id number] [facility] Stop: 03/22/20 03:29 Last Admin: 02/21/20 04:51 Dose: 75 mls/hr Documented by: Promethazine HCl 12.5 mg/ (Sodium Chloride) 50.5 mls @ 202 mls/hr IV Q6H PRN PRN Reason: Nausea And Vomiting Stop: 03/22/20 03:37 Piperacillin Sod/Tazobactam (Sod 3.375 gm/ Dextrose) 115 mls @ 28.75 mls/hr IV Q8H [facility]; Protocol Stop: 03/02/20 05:59 Last Admin: 02/21/20 13:22 Dose: 29 mls/hr Documented by: Losartan Potassium (Cozaar) 50 mg PO QAM [facility] Stop: 03/22/20 08:59 Last Admin: 02/21/20 08:14 Dose: 50 mg Documented by: Metoprolol Succinate (Toprol Xl) 25 mg PO QAM [facility] Stop: 03/22/20 08:59 Last Admin: 02/21/20 08:14 Dose: 25 mg Documented by: Mirtazapine (Remeron) 30 mg PO HS [facility] Stop: 03/22/20 20:59 Miscellaneous Information (Consult) 1 ea N/A UD PRN PRN Reason: Consult Stop: 03/22/20 02:24 Multivitamins (Multivitamin Tab) 1 tab PO QAM [facility] Stop: 03/22/20 08:59 Last Admin: 02/21/20 08:14 Dose: 1 tab Documented by: Multivitamins/Minerals (Multivitamin W/ Minerals Tab) 1 tab PO DAILY [facility] Stop: 03/22/20 08:59 Last Admin: 02/21/20 08:14 Dose: 1 tab Documented by: Polyethylene Glycol (Miralax Powder Packet) 17 gm PO TID [facility] Stop: 03/22/20 13:59 Last Admin: 02/21/20 13:22 Dose: 17 gm Documented by: Tramadol HCl (Ultram) 25 mg PO Q4H PRN PRN Reason: Pain Stop: 03/22/20 03:37 (1) Abdominal pain Abdominal location: generalized Qualified Code(s): R10.84 - Generalized abdominal pain
[2020-02-21] MEDS ORDERED: bisacodyL 5 MG TABEC PO ONE (17:00)
--- NOTE | 2020-02-21 17:07 | Electrocardiogram Report ---
Test Reason : Blood Pressure : / mmHG Vent. Rate : 081 BPM Atrial Rate : 081 BPM P-R Int : 138 ms QRS Dur : 092 ms QT Int : 408 ms P-R-T Axes : 013 007 022 degrees QTc Int : 473 ms Normal sinus rhythm Low voltage QRS Nonspecific ST abnormality Borderline ECG When compared with ECG of 18-SEP-2019 19:07, Nonspecific T wave abnormality, worse in Inferior leads Confirmed by Homer Warren ([id number]) on 02/21/2020 5:06:36 PM Referred By: REFERRED SELF Confirmed By:Benjamin Warren
[2020-02-21] MEDS ORDERED: MIRTAZAPINE TAB 15 MG TAB PO SCH (21:00)
[2020-02-21] MEDS ORDERED: FLUTICASONE PROPIONATE NA SPR 16 GM BTL SCH (21:00)
[2020-02-21] MEDS ORDERED: CETIRIZINE HCL 10 MG TABLET PO SCH (21:00)
[2020-02-22] MEDS: LACTATED RINGER'S 1,000 ML IV SCH (05:20)
--- NOTE | 2020-02-22 05:53 | Surgery Progress Note ---
Date of Service February 22, 2020 Assessment & Plan (1) Abdominal distention: -etiology unclear, but may be due to volvulus or internal hernia -as thrombocytopenia noted, would be hesitant to take right to surgery -recommend hospitalist admission and GI evaluation for consideration of colonoscopy prior to any surgical intervention: -pt. seen and examined with Dr. Blood: -he discussed with GI the need for urgent colonoscopy, they wish to provide platelet transfusion prior to any endoscopy -will follow along while in hospital Patient underwent successful colonoscopy to reduce sigmoid volvulus The patient is a high risk for recurrence normally would recommend a sigmoid resection Given the patient's overlying pathology discussed the situation with the medical service and they will address it with the family on their wishes The patient is a high risk for complication from a sigmoid resection due to the underlying medical condition 02/22/20 The patient appears comfortable today the abdomen is completely benign soft there is been no recording whether or not the patient has continued to move his bowels order written to try to keep a daily count Had discussion with the medical service yesterday regarding any surgery on this gentleman given that he has a high risk of recurrence apparently the family would like to proceed with surgery even know the risks I will discuss this with the family later today in the meantime if they proceed with surgery patient will need bowel prep cardiac evaluation We will keep him on full liquid diet we will start some mild laxative tomorrow and give oral antibiotics on Tuesday for anticipation of surgery on Tuesday Subjective Patient without complaints Physical Exam Physical Exam: Abdomen completely benign soft Results & Data Vital Signs (Past 12 Hours) Vital Signs Temp Pulse Pulse Resp BP BP Pulse Ox 02/22/20 04:00 36.6 C 69 16 146/66 H 100 02/21/20 23:33 76 02/21/20 23:00 36.6 C 75 16 144/64 H 96 02/21/20 20:00 36.3 C L 64 18 101/53 L 95 PG Care Time/CCT Total # of Minutes Spent Total Time Spent with Patient: Total time spent is greater than 50% in coordination of care (as documented) at patient's floor/unit and/or counseling patient: Coding Level of Care Code 76258 Subseq Hosp Care Lvl 3 Diagnoses Abdominal distention R14.0
[2020-02-22] MEDS: PIPERACILLIN/TAZOBACTAM 3.375 GM in DEXTROSE 5% 100 ML IV SCH (06:23)
[2020-02-22] MEDS: POLYETHYLENE (MIRALAX) 17 GM PACK PO SCH ×2 (07:58→14:56)
[2020-02-22] MEDS: MULTIVITAMIN TAB PO SCH (07:58)
[2020-02-22] MEDS: METOPROLOL SUCC 25MG EXT REL TAB PO SCH (07:58)
[2020-02-22] MEDS: CEROVITE ADV FORMULA TAB PO SCH (07:59)
--- NOTE | 2020-02-22 08:21 | Cardiology Consultation ---
Date of Consultation February 22, 2020 Assessment & Plan (1) Volvulus: (2) Severe protein-calorie malnutrition: (3) CAD, multiple vessel: (4) MDS (myelodysplastic syndrome): (5) Chronic anemia: (6) Pancytopenia: (7) Encounter for pre-operative examination: From a strictly cardiac standpoint the patient was counseled to be placed as a moderate risk for any adverse perioperative cardiovascular event, however, given his multiple comorbidities his perioperative risk would be significantly high. He states he understands and is not interested in surgery at this time. He was counseled that should he change his mind and wish to undergo surgery that his risk for any perioperative cardiovascular event will be at least greater than 5% and that no further cardiac testing or intervention would further lower that risk. Patient states that he understands but again would like to defer surgery at this time. No further cardiac testing necessary. History of Present Illness Reason for Consultation: Preoperative cardiovascular risk assessment Requesting Physician: Dr. Patrick Attending Physician: Martha Patrick, DO History of Present Illness It was my pleasure to see Mr. Sapp in consultation today February 22, 2020. He is a very pleasant 84-year-old gentleman who routinely follows with Rafael Collins of our cardiology practice. He was admitted on 02/21/2020 with complaints of abdominal pain there was found to be due to a volvulus. He underwent colonoscopy and cardiology was consulted for preop risk assessment prior to a possible sigmoid resection. Clinically, he states he feels well now. His abdominal pain has resolved and he denies experiencing any cardiac complaints of chest pain, shortness of breath, palpitations, lightheadedness, dizziness or syncope. Cardiac Problem List as per most recent outpatient cardiology clinic note: 1. Ischemic heart disease. 1. Presentation with angina in 2010, status post CABG x 2 with a MILLER to the LAD and a SVG to the LC on 11/05/2010. 2. Recurrent angina status post PCI fo the distal left main coronary artery with a drug eluting stent in November 2012. 3. No history of myocardial infarction 2. Hypertension 3. Dyslipidemia 4. Asymptomatic frequent atrial and ventricular ectopy. 5. Preserved left ventricular systolic function 6. moderate mitral regurgitation. Allergies Allergy/AdvReac Type Severity Reaction Status Date / Time tetanus toxoid, adsorbed Allergy Severe SWELLING Verified 02/20/20 22:15 Penicillins Allergy Intermediate HIVES Verified 02/20/20 22:15 CHAZ Inhibitors AdvReac Intermediate COUGH Verified 02/20/20 22:15 erythromycin base AdvReac Intermediate DIARRHEA Verified 02/20/20 22:15 Home Medications Home Medications Medication Instructions Recorded Confirmed Type cetirizine [Zyrtec] 10 mg PO QPM 05/19/18 02/20/20 History losartan 50 mg PO QAM 05/19/18 02/20/20 History metoprolol succinate 25 mg PO QAM 05/19/18 02/20/20 History multivitamin 1 tab PO QAM 05/19/18 02/20/20 History potassium chloride 20 meq PO BID 05/19/18 02/20/20 History Procrit 60,000 unit SUBCUT WK 06/19/19 02/20/20 History Ocuvite Eye Plus Multi 1 tab PO BID 09/18/19 02/20/20 History acetaminophen 500 mg capsule 500 mg PO Q8H PRN cap 02/13/20 02/20/20 History ascorbate calcium (vitamin C) 500 500 mg PO DAILY 02/13/20 02/20/20 History mg tablet dicyclomine 10 mg capsule 10 mg PO DAILY PRN cap 02/13/20 02/20/20 History fluticasone propionate 50 2 sprays INTNAS HS ml 02/13/20 02/20/20 History mcg/actuation nasal spray,suspension guaifenesin 600 mg tablet, 600 mg PO BID PRN 02/13/20 02/20/20 History extended release 12 hr prucalopride 2 mg tablet 2 mg PO DAILY 02/13/20 02/20/20 History simethicone 125 mg capsule 125 mg PO BID PRN cap 02/13/20 02/20/20 History mirtazapine [Remeron] 30 mg PO HS 02/20/20 02/20/20 History Patient History Medical History Acute kidney injury Cancer of skin of left leg REMOVED IN OFFICE Chronic anemia Cough (Acute) Encounter for pre-operative examination 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, 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% Hypercholesteremia (Chronic) Hyperlipidemia Hypertension (Chronic) Hypertension Lingular pneumonia (Acute) Macular degeneration of left eye Multiple myeloma PER --PT HAS LOW PLATELETS (LAST WAS below 10), RECEIVING PROCRIT EVERY 2 WEEKS Nasal bleeding (Acute) Osteoarthritis Prostate cancer 2009 RADIOACTIVE SEEDS IMPLANTED Rib fracture (Acute) Sleep apnea CPAP Weight loss Surgical History History of cardiac cath X3 2010, 2012 (2) History of carpal tunnel release RIGHT HAND X2 History of colonoscopy History of coronary artery bypass graft DOUBLE 2011 @ [facility] RODRIGUEZ History of heart artery stent 2013 X1 STENT @ [facility] W DR. RODRIGUEZ History of tonsillectomy History of tooth extraction ALL TEETH Hx of vasectomy Family History Other No pertinent family history in first degree relatives Social History Preferred Language: Icelandic Communication Ability: Effective Cement Side Laster Required: No Beliefs That Will Affect Care: None marital status: Current Living Situation: Family Other Information That Helps Us Care for You: No Feels Safe at Home: Yes Safety Concerns: Feels Safe At This Time Smoking Status: Former smoker Tobacco Type: cigars ; Do You Dip or Chew Tobacco: No ; Second Hand Exposure: No ; Tobacco Cessation Education Requested by Patient: No Hx Alcohol Use: No Hx Substance Use: No Review of Systems Review of Systems: All systems reviewed & are unremarkable except as noted in HPI & below Physical Exam Physical Exam: General: Awake, alert and oriented x 3. No acute distress. Very frail in appearance. HEENT: Normocephalic, atraumatic. Pupils equal, round and reactive to light and accommodation. Extraocular muscles are intact. Anicteric sclera. Moist mucous membranes. Neck: No JVD. No bruit. Cardiovascular: Regular. Positive S-4. Normal S-1 and S-2. No S-3. 3/6 holosystolic ejection murmur, left sternal border, mid-clavicular line with radiation to the axilla. No rubs. Pulmonary: Clear to auscultation bilaterally. No rales, rhonchi, or wheezing. Abdomen: Bowel sounds x 4, soft. No rebound, guarding or tenderness. No organomegaly. Extremities: No clubbing, cyanosis or edema. +2 pedal pulses bilaterally. Skin: Warm and dry. Results & Data ([facility]) Vital Signs (Past 12 Hours) Vital Signs Temp Pulse Pulse Resp BP Pulse Ox 02/22/20 08:14 52 L 02/22/20 07:19 36.3 C L 53 L 16 145/53 H 97 02/22/20 04:00 36.6 C 69 16 146/66 H 100 02/21/20 23:33 76 02/21/20 23:00 36.6 C 75 16 144/64 H 96
--- NOTE | 2020-02-22 09:11 | Gastroenterology Progress Note ---
Date of Service February 22, 2020 Assessment & Plan (1) Volvulus: 84 year old male w/ MDS admitted w/ sigmoid volvulus on CTAP s/p colonoscopy for decompression, no rectal tube placed. This AM he is clinically feeling well w/ soft, non-distended abdomen and denies any abdominal pain. Tentative surgical plan for early next week per patient and family request GI will sign off. Continue OP medications per established GI visits. While admitted continue Miralax TID and Dulcolax BID Thank you for allowing us to participate in the care of this patient. Please call with any acute changes, questions or concerns. Please see addendum below with additional recommendation from my supervising physician. Admission and Anticipated Discharge Date Admission Date: February 21, 2020 Supervising Physician Co-Signing Physician Notes I performed a history and physical examination of the patient today, including specifically on physical exam - soft abdomen. I have discussed the patient's management with the advanced practitioner. Please refer to the nurse practitioner's note for the documented findings and plan of care. Had multiple solid BM today. Planned for sigmoid resection per surgery. Recall GI if needed. Subjective Pt was seen and evaluated, chart reviewed. Tray table at bedside. No abd pain No nausea, vomiting. Passing gas No BM yet. Tolerating laxative. Tentative surgical plan for early next week. Review of Systems Constitutional: no fever, no chills and no fatigue Respiratory: no cough and no dyspnea Cardiovascular: no chest pain Gastrointestinal: no abdominal pain Physical Exam Constitutional: + ill appearing (chronically ill appearing); no acute distress Neck: trachea midline Respiratory: normal respiratory effort Cardiovascular: Rate/Rhythm: regular rate Gastrointestinal (Abdomen): normal bowel sounds, soft, nontender, no hepatosplenomegaly Results & Data ([facility]) Vital Signs (Past 12 Hours) Vital Signs Temp Pulse Pulse Resp BP Pulse Ox 02/22/20 08:14 52 L 02/22/20 07:19 36.3 C L 53 L 16 145/53 H 97 02/22/20 04:00 36.6 C 69 16 146/66 H 100 02/21/20 23:33 76 02/21/20 23:00 36.6 C 75 16 144/64 H 96
[2020-02-22 10:25] LABS: Mean Corpuscular Hgb Conc 30.8 g/dL (32-36); Nucleated RBC # (auto) 0.05 K/uL (0-0); Nucleated RBC % (auto) 2.5 %
[2020-02-22 10:29] LABS: Hemoglobin 7.4 g/dL (14.0-18.0); Mean Corpuscular Hemoglobin 24.8 pg (25-34); Mean Corpuscular Volume 80.5 fL (80-100); RDW Coefficient of Variation 21.3 % (11.5-14.5); RDW Standard Deviation 58.7 fL (36.4-46.3); Red Blood Count 2.98 M/uL (4.7-6.1); White Blood Count 1.91 K/uL (4.8-10.8)
[2020-02-22 10:38] LABS: Platelet Count 26 K/uL (130-400)
[2020-02-22 10:48] LABS: BUN Creatinine Ratio 19.4 (10-20); Creatinine Clr Calc Pharmacy 30.2 ml/min; Est GFR (Non-African American) 43.1; Potassium 3.3 mmol/L (3.5-5.1)
--- NOTE | 2020-02-22 10:49 | Hospitalist Progress Note ---
Date of Service February 22, 2020 Assessment & Plan (1) Volvulus: decompressive colonoscopy overnight with clinical improvement today. However, some persistent abdominal tenderness is present. Pt remains NPO, but surgeon is fine with clear diet progressing to full liquids in the next few days. Pt wishes to proceed with sigmoid resection, and will need a bowel prep with surgery likely early next week. Current BBK stock of platelets is one bag with two on the way this evening. Dozens of pints of blood are available. Platelets at this time are 27K with a threshold of 20K to transfuse without bleeding, and 30K preoperatively. So will hold off on any tranfusion at this time. Also H/H came up since this morning, and no need for blood transfusion at this time. Pt is Procrit dependent, and typically gets a once weekly platelet transfusion. GI remains on the case, available for another decompressive colonoscopy should the need arise. GI put in for scheduled laxatives to keep his bowel moving. Holding home Motegrity and dicyclomine. Will request cardiac preoperative assessment. Per Baird criteria, with his age and surgery type, he has a 3% risk of serious yvan-operative complication and a 1% chance of cardiac . If he doesn't move forward with the surgery he also has a high likelihood of recurrence of the volvulus which could be fatal. (2) Abdominal pain: Improved, advancing diet cautiously. Would avoid narcotics if possible. Bowel regimen and diet as above. 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 Worsened anemia overnight with all cell lines down, likely related to hemodilution. No overt bleeding is present. Will monitor CBC off fluids for improvement and consider blood transfusion if there is none. . Receives procrit every Tuesday. H/H improved to 8.3/ since this morning. No active bleeding is present. (4) Generalized weakness: likely related to significant weight loss and malnutrition. PT/OT prior to discharge to home. (5) Severe protein-calorie malnutrition: Will consult nutrition. For now, in the setting of bowel prep, diet will be restricted to clears/full liquids. Appreciate assessment of nutrition goals and close monitoring in the hospital. (6) Hypertension: Currently slightly hypotensive in the 90s systolic. (7) CAD, multiple vessel: chronic, stable. History includes CABG x 2 with a MILLER to the LAD and a SVG to the LC on 11/05/2010. He also had recurrent angina status post PCI fo the distal left main coronary artery with a drug eluting stent in November 2012. He is free of chest pain and EKG on arrival revealed no active ischemia. . Surgery requesting formal preoperative assessment. (8) Pancytopenia: 2/2 MDS per bone marrow performed in 2016. Receives regular procrit and platelet transfusions since that time. [facility] (9) MDS (myelodysplastic syndrome): as above. (10) Prostate cancer: s/p XRT over ten years ago. (11) DVT prophylaxis: SCDs, chemoprophylaxis contraindicated in setting of thrombocytopenia. DNR/DNI Dispo-uncertain but would plan for hospitalized through the weekend until patient can undergo bowel surgery early next week after bowel prep over the weekend. I spoke to the and son regarding risks and benefits of procedure and outlined the tentative plan. All questions were answered to their satisfaction. [facility] Admission and Anticipated Discharge Date Admission Date: February 21, 2020 Results & Data Results & Data ([facility]) Vital Signs (Past 12 Hours) Vital Signs Temp Pulse Pulse Resp BP Pulse Ox 02/22/20 08:14 52 L 02/22/20 07:19 36.3 C L 53 L 16 145/53 H 97 02/22/20 04:00 36.6 C 69 16 146/66 H 100 02/21/20 23:33 76 02/21/20 23:00 36.6 C 75 16 144/64 H 96 Laboratory Results Short CBC 02/21/20 02/22/20 Range/Units 13:42 10:06 WBC 3.32 L 1.91 L (4.8-10.8) K/uL Hgb 8.3 L 7.4 L (14.0-18.0) g/dL Hct 26.5 L 24.0 L (42-52) % Plt Count 27 L* 26 L* (130-400) K/uL BMP 02/22/20 10:06 Sodium 137 Potassium 3.3 L D Chloride 109 H Carbon Dioxide 21 BUN 29 H Creatinine 1.48 H Glucose 120 H Calcium 8.0 L Medications Administered Current Inpatient Medications Acetaminophen (Tylenol) 650 mg PO Q4H PRN PRN Reason: Pain or Fever Stop: 03/22/20 03:37 Cetirizine HCl (Zyrtec) 10 mg PO QPM [facility] Stop: 03/22/20 20:59 Last Admin: 02/21/20 20:22 Dose: 10 mg Documented by: Fluticasone Propionate (Flonase) 2 sprays NA HS [facility] Stop: 03/22/20 20:59 Last Admin: 02/21/20 20:22 Dose: 2 sprays Documented by: Hydromorphone HCl (Dilaudid) 0.25 mg IV Q3H PRN PRN Reason: Pain Stop: 03/06/20 03:37 Promethazine HCl 12.5 mg/ (Sodium Chloride) 50.5 mls @ 202 mls/hr IV Q6H PRN PRN Reason: Nausea And Vomiting Stop: 03/22/20 03:37 Losartan Potassium (Cozaar) 50 mg PO QAM [facility] Stop: 03/22/20 08:59 Last Admin: 02/21/20 08:14 Dose: 50 mg Documented by: Metoprolol Succinate (Toprol Xl) 25 mg PO QAM [facility] Stop: 03/22/20 08:59 Last Admin: 02/22/20 07:58 Dose: 25 mg Documented by: Mirtazapine (Remeron) 30 mg PO [facility] Stop: 03/22/20 20:59 Last Admin: 02/21/20 20:22 Dose: 30 mg Documented by: Multivitamins (Multivitamin Tab) 1 tab PO QAM [facility] Stop: 03/22/20 08:59 Last Admin: 02/22/20 07:58 Dose: 1 tab Documented by: Multivitamins/Minerals (Multivitamin W/ Minerals Tab) 1 tab PO DAILY [facility] Stop: 03/22/20 08:59 Last Admin: 02/22/20 07:59 Dose: 1 tab Documented by: Polyethylene Glycol (Miralax Powder Packet) 17 gm PO TID [facility] Stop: 03/22/20 13:59 Last Admin: 02/22/20 07:58 Dose: 17 gm Documented by: Tramadol HCl (Ultram) 25 mg PO Q4H PRN PRN Reason: Pain Stop: 03/22/20 03:37 (1) Abdominal pain Abdominal location: generalized Qualified Code(s): R10.84 - Generalized abdominal pain
[2020-02-22 10:58] LABS: Anisocytosis Present; Basophils # (auto) 0.01 K/uL (0-0.2); Basophils % (auto) 0.5 %; Echinocytes 1+; Eosinophils # (auto) 0.01 K/uL (0-0.5); Eosinophils % (auto) 0.5 %; Hypochromasia Present; Immature Granulocytes # (auto) 0.03 K/uL (0.00-0.02); Immature Granulocytes % (auto) 1.6 %; Lymphocytes # (auto) 0.87 K/uL (1.2-3.4); Lymphocytes % (auto) 45.5 %; Monocytes # (auto) 0.32 K/uL (0.11-0.59); Monocytes % (auto) 16.8 %; Neutrophils # (auto) 0.67 K/uL (1.4-6.5); Neutrophils % (auto) 35.1 %; Platelet Estimate Decreased (Normal); Poikilocytosis Present; Schistocytes 1+
--- NOTE | 2020-02-22 12:19 | Surgery Progress Note ---
Date of Service February 22, 2020 Assessment & Plan (1) Abdominal distention: -etiology unclear, but may be due to volvulus or internal hernia -as thrombocytopenia noted, would be hesitant to take right to surgery -recommend hospitalist admission and GI evaluation for consideration of colonoscopy prior to any surgical intervention: -pt. seen and examined with Dr. Blood: -he discussed with GI the need for urgent colonoscopy, they wish to provide platelet transfusion prior to any endoscopy -will follow along while in hospital Patient underwent successful colonoscopy to reduce sigmoid volvulus The patient is a high risk for recurrence normally would recommend a sigmoid resection Given the patient's overlying pathology discussed the situation with the medical service and they will address it with the family on their wishes The patient is a high risk for complication from a sigmoid resection due to the underlying medical condition 02/22/20 The patient appears comfortable today the abdomen is completely benign soft there is been no recording whether or not the patient has continued to move his bowels order written to try to keep a daily count Had discussion with the medical service yesterday regarding any surgery on this gentleman given that he has a high risk of recurrence apparently the family would like to proceed with surgery even know the risks I will discuss this with the family later today in the meantime if they proceed with surgery patient will need bowel prep cardiac evaluation We will keep him on full liquid diet we will start some mild laxative tomorrow and give oral antibiotics on Tuesday for anticipation of surgery on Tuesday ADDENDUM Had long discussion with the son the patient and the regarding further care for Mr. Sapp Patient has a higher chance of recurrence of his volvulus up to about 80% classically we would want do a sigmoid resection to try to prevent this however we are faced with a few problems regarding proceeding with surgery in this institution since we are limited at the number of units of platelets available Discussed with the family about transferring the patient to a tertiary center whether it is done acutely or in the near future to consider surgery at that institution The son asked me what I would do if it with my dad and my advice to him was to leave things alone if the patient would have more symptoms or recurrent symptoms then proceed with another colonoscopy The reason for this is the patient has significant comorbidities and significant weight loss 60 pounds and very limited functional capacity just walks with a walker limited distance I discussed the situation with Dr. Patrick also In summary I recommend no surgery at this time Results & Data Vital Signs (Past 12 Hours) Vital Signs Temp Pulse Pulse Resp BP Pulse Ox 02/22/20 11:40 36.3 C L 53 L 16 124/44 L 98 02/22/20 08:14 52 L 02/22/20 07:19 36.3 C L 53 L 16 145/53 H 97 02/22/20 04:00 36.6 C 69 16 146/66 H 100 PG Care Time/CCT Total # of Minutes Spent Total Time Spent with Patient: Total time spent is greater than 50% in coordination of care (as documented) at patient's floor/unit and/or counseling patient: Coding Level of Care Code None Diagnoses Abdominal distention R14.0
--- NOTE | 2020-02-22 15:06 | GI REPORT ---
Patient Name: Narciso Sapp Procedure Date: 02/22/2020 3:00 PM Date of : 1935 Admit Type: Emergency Department Age: 84 Gender: Male Attending MD: Theresa Mera M.d. Procedure: Colonoscopy Providers: Theresa Mera M.d. Referring MD: Michael Kaur Indications: Abnormal CT of the GI tract (suspected volvulus) Medicines: Propofol per Anesthesia, Lidocaine Complications: No immediate complications. Estimated Blood Loss: Estimated blood loss: none. Procedure: Pre-Anesthesia Assessment: - Patient identification and proposed procedure were verified prior to the procedure by the physician, the nurse and the anesthesiologist. The procedure was verified in the pre-procedure area. - Prior to the procedure, a History and Physical was performed, and patient medications, allergies and sensitivities were reviewed. The patient's tolerance of previous anesthesia was reviewed. - The risks and benefits of the procedure and the sedation options and risks were discussed with the patient. All questions were answered and informed consent was obtained. - ASA Grade Assessment: IV - A patient with severe systemic disease that is a constant threat to life. After I obtained informed consent, the scope was passed under direct vision. Throughout the procedure, the patient's blood pressure, pulse, and oxygen saturations were monitored continuously. The colonoscopy was performed with difficulty due to poor bowel prep. Successful completion of the procedure was aided by lavage. The patient tolerated the procedure well. The quality of the bowel preparation was poor. The Endoscope was introduced through the anus and advanced to the terminal ileum. Findings: The terminal ileum appeared normal. The examined colon appeared normal. Successful decompression of the sigmoid volvulus. The retroflexed view of the distal rectum and anal verge was normal and showed no anal or rectal abnormalities. Impression: - Preparation of the colon was poor. - The examined portion of the ileum was normal. - The examined colon appeared normal. - Successful decompression of the sigmoid without evidence of ischemic bowel noted on today's examination. - The distal rectum and anal verge are normal on retroflexion view. - No specimens collected. Recommendation: - IV fluids. - Return to the floor. - This note was entered due to issues with the initial note not being able to be finalized despite attempting to sign it. (The procedure was completed on the morning of 02/21/2020- initial time of entry was 1:52 am with completion of the procedure near 2:30-3 am on the morning of 02/21/2020.) - Images were transferred from the initial note started on 02/20 due to the issues stated above. Latoya Wood M.d. 02/22/2020 3:05:55 PM This report has been signed electronically. Note Initiated On: 02/22/2020 3:00 PM Number of Addenda: 0 I attest to the content of the Intraoperative Record and orders documented therein, exceptions below {[id number]}
[2020-02-22] MEDS ORDERED: POTASSIUM CHLORIDE 20 MEQ TABCR PO ONE (15:15)
[2020-02-22 17:22] LABS: Nucleated RBC # (auto) 0.06 K/uL (0-0); Nucleated RBC % (auto) 3.6 %
[2020-02-22 17:36] LABS: Hematocrit (blood only) 25.3 % (42-52); Hemoglobin 8.1 g/dL (14.0-18.0); Mean Corpuscular Hemoglobin 25.3 pg (25-34); Mean Corpuscular Volume 79.1 fL (80-100); RDW Coefficient of Variation 21.3 % (11.5-14.5); RDW Standard Deviation 58.4 fL (36.4-46.3); White Blood Count 1.75 K/uL (4.8-10.8)
--- NOTE | 2020-02-22 18:09 | Discharge Summary ---
Date of Service February 22, 2020 Admission HPI Per Admitting Provider History obtained from patient, family, and records. History somewhat limited from patient secondary to mild impairment. 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 Last confinement September 2019 secondary to right rib fractures secondary to mechanical fall. Patient with chronic diarrhea symptoms since 2018. CT imaging showed ileus. 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 No improvement with Xifaxan Rx. Continued weight loss despite good appetite as per outpatient GI note from November 2019. Motegrity Rx initiated outpatient. Continued weight loss/abdominal cramping/semi-formed stools noted on follow-up visit about 2 weeks ago. Follow-up CT abdomen pelvis study requested. Yesterday morning patient noted progressive abdominal distention with achy abdominal pain. Some nausea, no emesis. Usual nonbloody loose stools. No fever, no chills. No chest pain, no S OB, no fluid retention. Patient brought to ER for evaluation. 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 Admission Exam Per Admitting Provider GENERAL: Comfortable, pleasant, slightly hard of hearing, no respiratory distress SKIN: Pallor , warm HEENT: Partial alopecia, pale palpebral conjunctivae, no ptosis, dry buccal mucosa NECK : Supple, no tenderness CHEST : Decreased breath sounds , no tenderness HEART : RRR, no obvious murmurs ABDOMEN: Marketed abdominal distention , central abdominal tenderness EXTREMITIES : Minimal LE swelling, no LE tenderness, no other conspicuous deformities noted NEUROLOGIC : Coherent, no facial asymmetry, slightly hard of hearing, no other gross focality Principal Diagnosis Volvulus MDS with pancytopenia/neutropenia Discharge Exam CONSTITUTIONAL: thin, frail, vitals as above, generally well-appearing EYES: normal conjunctivae, no scleral icterus ENT: external ear and nose normal, MMM RESPIRATORY: clear to auscultation bilaterally, no crackles, rales or wheezes, normal respiratory effort CARDIOVASCULAR: regular rate and rhythm, S1 and 2 heard without murmurs, gallops or rubs, no JVD, no peripheral edema GASTROINTESTINAL: normal bowel sounds, soft, nontender, nondistended MUSCULOSKELETAL: generally deconditioned but moves all extremities equally. SKIN: warm and dry NEUROLOGIC: No facial palsy, no dysarthria. CN 2-12 grossly intact, no sensory deficit, normal cognition, normal speech, no gross focal deficits. PSYCHIATRIC: alert cooperative and oriented to person, place and time. Euthymic mood, makes good eye contact, language grossly intact, recent and remote memory grossly intact. Discharge Data Allergies Allergy/AdvReac Type Severity Reaction Status Date / Time tetanus toxoid, adsorbed Allergy Severe SWELLING Verified 02/20/20 22:15 Penicillins Allergy Intermediate HIVES Verified 02/20/20 22:15 CHAZ Inhibitors AdvReac Intermediate COUGH Verified 02/20/20 22:15 erythromycin base AdvReac Intermediate DIARRHEA Verified 02/20/20 22:15 Consultations 02/20/20 23:34 Consult Gastroenterology Stat Consult General Surgery Stat ED Decision to Admit Stat 02/21/20 15:29 Consult Cardiology Routine Procedures Performed Operation Date: 02/21/20 02:30 Actual Procedures p Colonoscopy - Theresa Mera M.D. Ordered Studies 02/20/20 21:41 CT abd pelvis wo con Urgent Hospital Course (1) Volvulus: (2) Generalized weakness: (3) Severe protein-calorie malnutrition: (4) Pancytopenia: (5) MDS (myelodysplastic syndrome): 84-year-old man presented to the emergency department for evaluation of abdominal pain. Physical exam revealed significant abdominal findings and work- up included a CT of the abdomen and pelvis which revealed signs of volvulus with bowel obstruction. General surgery was consulted and he was admitted to the Hospitalist service. Surgical recommendation was to consult GI for an urgent colonoscopy. In the setting of MDS his platelets were less than 30,000 and he was given a platelet transfusion. GI was consulted and performed urgent colonoscopy for decompression overnight. The following day the patient felt much better and was reevaluated by surgery who noted a high risk for recurrence of volvulus (approaching 80% possibility) in which case a sigmoid resection would be recommended, typically. However, after discussion of options and reviewing risks/benefits of this procedure the patient and his family opted to go home without further surgery at this time. They were well informed of the symptoms associated with volvulus recurrence, and when to seek emergency medical attention. As the patient requires regular platelet transfusions for chronic thrombocytopenia secondary to MDS, also has anemia, and with his multiple comorbidities including recent 60 pound weight loss and limited functional capacity, if he were to need a sigmoid resection a tertiary care facility where ample blood products would be available. His diet was advanced to clear liquids without issue and no further diet restrictions were recommended on discharge. In the setting of known CAD status post CABG, a formal cardiology consult was p laced for preoperative evaluation. From a strictly cardiac standpoint the patient is a moderate risk for adverse perioperative cardiovascular events however, given his multiple comorbidities his perioperative risk would likely be significantly high. The patient was counseled that his risk for any perioperative cardiovascular event would be at least greater than 5% and that no further cardiac testing intervention would lower that risk. Total Time Total Time Spent Total Time Spent (In Minutes): 60 Total Time Includes: Examination of the Patient, Discharge Planning, Medication Reconciliation and Communication With Other Providers Discharge Plan Discharge Items Patient Disposition: Home - Home Health Services Reason For Visit: BOWEL OBS,POSS IV GINNY ADMIN Discharge Diagnosis: Volvulus MDS with pancytopenia/neutropenia Condition on Discharge: Good Activity: Resume your previous activity Non-emergency contact: Primary Care Provider Call non-emergency contact if: you have any medication questions, your symptoms worsen, your pain is not controlled, your pain is worsening, your pain is unusual for you, your pain is concerning for you and you have a fever Follow-up/Referrals: Edlemira Vargas MD [Primary Care Provider] - Diet: Regular Addtl Attending Provider Instructions: Please take all medications as instructed on discharge list below. It is recommended to avoid Imodium and Bentyl or other OTC bowel motility agents at this time. Please work to adjust your diet to help try to control the diarrhea. It may be helpful to follow-up with your educational paraprofessional for further guidance on this. As there is a high likelihood of you having a recurrence of symptoms, please consider this if your previous symptoms return or if you have abdominal pain, fever, shortness of breath or other concerning issues. Please do follow-up on Tuesday for your typical bloodwork screening and transfusion/medication administration at the infusion center. It is recommended that you follow-up with your primary care physician within one week of discharge to ensure you are still doing well and your diarrhea isn't worsening without agents to control it. It was a pleasure taking care of you! Please call if you have any questions or problems. You can reach a [facility] hospitalist on duty at [facility] 24 hours a day by calling [phone]. Take care of yourself. Martha Patrick, [facility] Hospitalist Pending Studies at Discharge: No Stand-Alone Forms: My [facility], Smoking Cessation Medications and DC Order Prescriptions: Continued simethicone [Gas Relief (simethicone)] 125 mg capsule 125 mg PO BID PRN (Reason: Other) RF: 0 ascorbate calcium (vitamin C) 500 mg tablet 500 mg PO DAILY RF: 0 acetaminophen 500 mg capsule 500 mg PO Q8H PRN (Reason: Pain) RF: 0 fluticasone propionate [Flonase Allergy Relief] 50 mcg/actuation spray,suspension 2 sprays INTNAS HS RF: 0 guaifenesin [Mucinex] 600 mg tablet extended release 12hr 600 mg PO BID PRN (Reason: Cough) RF: 0 prucalopride 2 mg tablet 2 mg PO DAILY RF: 0 Procrit 40,000 unit/mL Solution 60,000 unit subcut WK RF: 0 Ocuvite Eye Plus Multi 200-15-150 mcg Tablet 1 tab PO BID RF: 0 mirtazapine [Remeron] 30 mg tablet 30 mg PO HS RF: 0 multivitamin Tablet 1 tab PO QAM RF: 0 cetirizine [Zyrtec] 10 mg Tablet 10 mg PO QPM RF: 0 metoprolol succinate 25 mg Tablet Extended Release 24 Hr 25 mg PO QAM RF: 0 potassium chloride 20 mEq Tablet Extended Release 20 meq PO BID RF: 0 losartan 50 mg Tablet 50 mg PO QAM RF: 0 Discontinued dicyclomine 10 mg capsule 10 mg PO DAILY PRN (Reason: Gastrointestinal Spasms Or Cramping) RF: 0 Imodium A-D 1 cap PO UD PRN (Reason: Diarrhea) RF: 0 Discharge Orders: Discharge Order (Routine); Ordered 02/22/20 Ordered By: Martha Patrick Admission Data Admit Date/Time: 02/21/20 00:52 Attending Provider: Martha Patrick Admit Provider: Jared Saeed Primary Care Provider: Edelmira Vargas Other Providers: Theresa Mera ; Melecio Blood ; Jared Saeed ; Hunter Marie Other Interventions: Discharge Summary Assessment (RN) Last Done: 02/22/20 18:27 DC Date/Time DO NOT enter until pt leaves facility: 02/22/20 19:48
[2020-02-22 18:11] LABS: Platelet Count 30 K/uL (130-400)
[2020-02-22 18:12] LABS: Anisocytosis Present; Echinocytes 1+; Giant Platelets 1+; Hypochromasia Present; Platelet Estimate SIGNIFIC DECREASED (Normal); Schistocytes 1+
[2020-02-22 18:14] LABS: ANC (manual) 0.64 K/uL (1.4-6.5); Blast # (manual) 0.02 K/uL (0-0); Blast Cells % (manual) 0.9 %; Lymphocytes % (manual) 57.4 %; Monocytes # (manual) 0.08 K/uL (0.11-0.59); Monocytes % (manual) 4.3 %; Myelocytes # (manual) 0.02 K/uL (0-0); Myelocytes % (manual) 0.9 %; Neutrophils # (manual) 0.64 K/uL (1.4-6.5); Neutrophils % (manual) 36.5 %
== END 2020-02-22 19:48 | disposition home health service (06) | DRG 388 ==
LOC: ED 21:25 → ASU 02-21 01:52 → SUATTDRO 02-21 03:44 → 2N 02-21 03:44

== ENCOUNTER 2020-02-27 22:23 | Observation (INO) ==
[2020-02-27] MEDS ORDERED: SODIUM CHLORIDE 0.9% 1000ML 1,000 ML IV SCH (22:45)
[2020-02-27 23:18] LABS: Alanine Aminotransferase 16 U/L (12-78); Albumin Level 2.7 gm/dl (3.4-5.0); Aspartate Aminotransferase 14 U/L (15-37); BUN Creatinine Ratio 13.8 (10-20); Blood Urea Nitrogen 21 mg/dl (7-18); Calcium 8.4 mg/dl (8.5-10.1); Carbon Dioxide 19 mmol/L (21-32); Chloride 104 mmol/L (98-107); Creatinine Clr Calc Pharmacy 30.5 ml/min; Est GFR (African American) 49.2; Est GFR (Non-African American) 42.4; Glucose 93 mg/dl (70-99); Lipase 82 U/L (73-393); Potassium 3.1 mmol/L (3.5-5.1); Sodium 134 mmol/L (136-145)
[2020-02-27 23:23] LABS: ALC (manual) 0.32 K/uL (1.2-3.4); Albumin Globulin Ratio 0.5 (0.9-2); Alkaline Phosphatase 92 U/L (45-117); Anisocytosis Present; Bilirubin,Total 1.7 mg/dl (0.2-1); Giant Platelets 1+; Hematocrit (blood only) 28.8 % (42-52); Hemoglobin 8.9 g/dL (14.0-18.0); Hypochromasia Present; Lymphocytes # (manual) 0.32 K/uL (1.2-3.4); Lymphocytes % (manual) 6.1 %; Mean Corpuscular Hemoglobin 24.5 pg (25-34); Mean Corpuscular Hgb Conc 30.9 g/dL (32-36); Mean Corpuscular Volume 79.1 fL (80-100); Monocytes # (manual) 0.05 K/uL (0.11-0.59); Monocytes % (manual) 0.9 %; Nucleated RBC # (auto) 0.18 K/uL (0-0); Nucleated RBC % (auto) 3.4 %; Ovalocytes 1+; Platelet Count 27 K/uL (130-400); Platelet Estimate SIGNIFIC DECREASED (Normal); RDW Standard Deviation 57.7 fL (36.4-46.3); Red Blood Count 3.64 M/uL (4.7-6.1); Tear Drop Cells 1+; Total Protein 7.7 gm/dl (6.4-8.2); Troponin I < 0.015 ng/ml (0-0.045); White Blood Count 5.27 K/uL (4.8-10.8)
--- NOTE | 2020-02-28 00:50 | Emergency Department Note ---
Impression & Plan Weakness, Anemia, Thrombocytopenia, Ileus ED Provider Note NAME: HENRY MARTINEZ AGE: 84 SEX: M : 1935 ARRIVES VIA: Ambulance INFORMANT: Patient, the patient significant other ED PROVIDER(S): Michael Kaur DO CHIEF COMPLAINT: Altered mental status HPI: The patient is an 84-year-old male who presented to the emergency depart ment for an evaluation of altered mental status. The patient was recently seen in our facility for a volvulus. This was treated with decompression with colonoscopy. The patient was admitted the hospital but was then discharged to home. He is to be referred for specialty surgery down the road but at this time he was feeling better. His significant other states that earlier today he was having significant weakness difficulty ambulating and also confusion. He was treated with IV fluids and at this time appears much better. His significant other is concerned because he continues to have loose bowel movements. He has had no black or bloody stools. He did not have any fever reportedly. He is having no chest pain but was having shortness of breath especially with exertion. ROS: See above HPI for pertinent positives & negatives. A total of 10 systems reviewed and were otherwise negative. PAST MEDICAL HISTORY: See Below PAST SURGICAL HISTORY: See Below FAMILY HISTORY: See Below SOCIAL HISTORY: See Below HOME MEDICATIONS: See Below ALLERGIES: See Below VITALS: See Below PHYSICAL EXAMINATION: GENERAL: The patient is awake and answers questions appropriately. He does seem somewhat listless but not uncomfortable. EYES: The conjunctivae are clear. The pupils are round and reactive. EARS, NOSE, MOUTH AND THROAT: The nose is without any evidence of any deformity. Mucous membranes are dry. NECK: The neck is nontender and supple. RESPIRATORY: Diminished breath sounds are noted at both bases. There is Rales in both bases right greater than left. CARDIOVASCULAR: Ectopy was noted to auscultation. There was no definite murmur. GASTROINTESTINAL: The abdomen is soft. Abdomen is nontender. PELVIS: The Pelvis is stable. No tenderness to palpation is noted. BACK: No midline tenderness or or step-off noted range of motion in flexion extension as well as rotation no signs of muscle spasm noted MUSCULOSKELETAL/EXTREMITIES: There is no evidence of gross deformity full range of motion is noted in the hips and shoulders. SKIN: Trace pedal edema was noted bilaterally. NEUROLOGIC: Patient is oriented to person place and situation. Strength was s ymmetric but diminished. MEDICAL DECISION MAKING: The patient is an 84-year-old male who presented to the emergency department for an evaluation of generalized weakness. The patient was seen in our facility recently for a volvulus. This was treated with colonoscopy. The patient was discharged to home with the plan that he may require surgery down the road. His called the ambulance this evening because over the course of the last day the patient has become more weak and lethargic. She is noticed that he has had intermittent episodes where he is having severe difficulty ambulating because of generalized weakness. There is no reported fever or cough. The patient did complain of some abdominal pain which was lower abdomen and not constant. She also states that he has been having loose bowel movements but no black or bloody bowel movements. The patient was treated with IV fluids in the emergency department. He was significantly improved. I discussed the patient's laboratory and radiographic studies with him and his significant other. Because of his findings I also [facility] They have agreed to evaluate the patient in the emergency department for further management and disposition. Triage Nursing notes reviewed. Prior medical records reviewed Vital Signs: reviewed and remarkable for no significant abnormalities Differential diagnosis: Infection, hypoglycemia, electrolyte abnormalities, overdose, toxicologic, cardiac sources, intracerebral event, neurologic, trauma, as well as other pathologies. ER treatment provided: See below Diagnostics interpreted by me: ECG: EKG was obtained in the emergency department. My interpretation is sinus rhythm at 78 bpm. PACs were noted. Inferior and lateral ST depressions were noted. There was an incomplete right bundle branch block pattern noted. This was compared to a tracing from February 192019. No significant changes were noted. Cardiac Monitoring: An order was placed for continuous cardiac monitoring. The monitor shows a rate of 80 with sinus rhythm. Laboratory studies: As stated above and show below. Imaging studies: See below Consultation(s): 0055: I discussed this case with Dr. Nunez who [facility] He is agreed to evaluate the patient in the emergency department for further management and disposition. 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% Hypercholesteremia (Chronic) Hyperlipidemia Hypertension (Chronic) Hypertension Lingular pneumonia (Acute) Macular degeneration of left eye Multiple myeloma PER --PT HAS LOW PLATELETS (LAST WAS below 10), RECEIVING PROCRIT EVERY 2 WEEKS Nasal bleeding (Acute) Osteoarthritis Prostate cancer 2008 RADIOACTIVE SEEDS IMPLANTED Rib fracture (Acute) Sleep apnea CPAP Weight loss Surgical History History of cardiac cath X3 2010, 2012 (2) History of carpal tunnel release RIGHT HAND X2 History of colonoscopy History of coronary artery bypass graft DOUBLE 2011 @ [facility] RODRIGUEZ History of heart artery stent 2012 X1 STENT @ [facility] DR. 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 Helper Required: No Beliefs That Will Affect Care: None marital status: Current Living Situation: Family Feels Safe at Home: Yes Smoking Status: Former smoker Tobacco Type: cigars ; Second Hand Exposure: No ; Hx Alcohol Use: No Hx Substance Use: No Allergies Allergies Allergy/AdvReac Type Severity Reaction Status Date / Time tetanus toxoid, adsorbed Allergy Severe SWELLING Verified 02/20/20 22:15 Penicillins Allergy Intermediate HIVES Verified 02/20/20 22:15 CHAZ Inhibitors AdvReac Intermediate COUGH Verified 02/20/20 22:15 erythromycin base AdvReac Intermediate DIARRHEA Verified 02/20/20 22:15 Home Meds Home Medications Medication Instructions Recorded Confirmed cetirizine [Zyrtec] 10 mg PO QPM 05/19/18 02/27/20 losartan 50 mg PO QAM 05/19/18 02/27/20 metoprolol succinate 25 mg PO QAM 05/19/18 02/27/20 multivitamin 1 tab PO QAM 05/19/18 02/27/20 potassium chloride 40 meq PO BID 05/19/18 02/27/20 Procrit 60,000 unit SUBCUT WK 06/19/19 02/27/20 Ocuvite Eye Plus Multi 1 tab PO BID 09/18/19 02/27/20 acetaminophen 500 mg capsule 1,000 mg PO Q8H PRN cap 02/13/20 02/27/20 ascorbate calcium (vitamin C) 500 500 mg PO DAILY 02/13/20 02/27/20 mg tablet fluticasone propionate 50 2 sprays INTNAS HS ml 02/13/20 02/27/20 mcg/actuation nasal spray,suspension guaifenesin 600 mg tablet, 600 mg PO BID PRN 02/13/20 02/27/20 extended release 12 hr prucalopride 2 mg tablet 2 mg PO DAILY 02/13/20 02/27/20 simethicone 125 mg capsule 250 mg PO BID PRN cap 02/13/20 02/27/20 mirtazapine [Remeron] 30 mg PO HS 02/20/20 02/27/20 food supplemt, lactose-reduced 1 ea PO TID 02/27/20 02/27/20 [Boost] food supplemt, lactose-reduced 1 ea PO BID 02/27/20 02/27/20 [Nutritional Shake Plus] Results & Data (ED) Vital Signs Vital Signs - 24 hr 02/27/20 22:28 02/27/20 22:49 Temperature 36.8 C Temperature Source Oral Pulse Rate 73 79 Pulse Rhythm Regular Respiratory Rate 16 Respiratory Depth Normal Blood Pressure 114/73 Blood Pressure Mean 86 Blood Pressure Position Lying Pulse Oximetry 96 92 Oxygen Delivery Method Room Air Room Air Sepsis Recent Fever Within 48 Hours No Sepsis Action Taken by Nursing No Action Required Home Medications Current Medication List: was personally reviewed by me Laboratory Data Attestation: I reviewed the patient's lab results. Result diagrams: 02/27/20 22:50 02/27/20 22:50 Lab Results 02/27/20 02/27/20 Range/Units 22:50 22:50 WBC 5.27 (4.8-10.8) K/uL RBC 3.64 L (4.7-6.1) M/uL Hgb 8.9 L (14.0-18.0) g/dL Hct 28.8 L (42-52) % MCV 79.1 L (80-100) fL MCH 24.5 L (25-34) pg MCHC 30.9 L (32-36) g/dL RDW Std Deviation 57.7 H (36.4-46.3) fL RDW Coeff of Marguerite 21.0 H (11.5-14.5) % Plt Count 27 L* (130-400) K/uL Absolute Nucleated RBC 0.18 H (0-0) K/uL Nucleated RBC % (auto) 3.4 % Neutrophils % (Manual) 93.0 % Lymphocytes % (Manual) 6.1 % Monocytes % (Manual) 0.9 % Neutrophils # (Manual) 4.90 (1.4-6.5) K/uL Total Absolute Neuts 4.90 (1.4-6.5) K/uL Lymphocytes # (Manual) 0.32 L (1.2-3.4) K/uL Total Abs Lymphocytes 0.32 L (1.2-3.4) K/uL Monocytes # (Manual) 0.05 L (0.11-0.59) K/uL Platelet Estimate SIGNIFIC DECREASED (Normal) Giant Platelets 1+ Hypochromasia Present Anisocytosis Present Tear Drop Cells 1+ Ovalocytes 1+ Sodium 134 L (136-145) mmol/L Potassium 3.1 L (3.5-5.1) mmol/L Chloride 104 (98-107) mmol/L Carbon Dioxide 19 L (21-32) mmol/L Anion Gap 11.0 (3-11) BUN 21 H (7-18) mg/dl Creatinine 1.50 H (0.6-1.4) mg/dl Est Cr Clr Drug Dosing 30.5 ml/min Est GFR ( Amer) 49.2 Est GFR (Non-Af Amer) 42.4 BUN/Creatinine Ratio 13.8 (10-20) Glucose 93 (70-99) mg/dl Calcium 8.4 L (8.5-10.1) mg/dl Total Bilirubin 1.7 H (0.2-1) mg/dl AST 14 L (15-37) U/L ALT 16 (12-78) U/L Alkaline Phosphatase 92 (45-117) U/L Troponin I < 0.015 (0-0.045) ng/ml Total Protein 7.7 (6.4-8.2) gm/dl Albumin 2.7 L (3.4-5.0) gm/dl Globulin 5.0 H (2.5-4.0) gm/dl Albumin/Globulin Ratio 0.5 L (0.9-2) Lipase 82 (73-393) U/L Administered Medications Discontinued Medications Sodium Chloride (Nss 1000ml) 1,000 mls @ 999 mls/hr IV .Q1H1M CORTEZ Stop: 02/27/20 23:45 Last Admin: 02/27/20 23:18 Dose: 999 mls/hr Documented by: [id number] Imaging Data Attestation: I personally reviewed and interpreted this imaging study as follows: My Impression: Upright chest x-ray was obtained in the emergency department. My interpretation is no free air, there was significant dilation of the large bowel noted. Radiologist's Impression: Preliminary Findings Only See Final Report For Complete Findings CT ABDOMEN & PELVIS Without Contrast: Comparison CT 02/20/2020. Mild gaseous distention of the ascending and transverse colon which is improved from the prior. Focal transition from distended to decompressed within the descending colon (image [id number]) where there appears to be some sort of scarring within the retroperitoneum which the descending bowel has to loop around. No extraluminal air. Mild mucosal thickening within the colon most pronounced within the transverse colon where there is short segment thickening (image [id number]), colitis versus malignancy. Small pleural effusions right greater than left. Trace ascites and body wall edema. Cholelithiasis. Radiologist: Quan Nath MD Study ready at 23:10 and initial results transmitted at 23:20 Preliminary Findings Only See Final Report For Complete Findings CT HEAD: Parenchymal atrophy and chronic microvascular ischemic changes. No intracranial hemorrhage or large territory acute cortical infarct. Paranasal sinuses and mastoid air cells are clear. No fracture. Radiologist: Quan Nath MD Study ready at 23:15 and initial results transmitted at 23:21 Blood Pressure Blood Pressure Findings: Normal blood pressure Discharge Plan Visit Data Stated Complaint: LETHARGIC, ED Provider: Michael Kaur Discharge Problem: Weakness, Anemia, Thrombocytopenia, Ileus Patient Disposition: Being Evaluated by Hospitalist Condition: Good Prescriptions Prescriptions: No Action simethicone [Gas Relief (simethicone)] 125 mg capsule 250 mg PO BID PRN (Reason: Other) RF: 0 ascorbate calcium (vitamin C) 500 mg tablet 500 mg PO DAILY RF: 0 acetaminophen 500 mg capsule 1,000 mg PO Q8H PRN (Reason: Pain) RF: 0 fluticasone propionate [Flonase Allergy Relief] 50 mcg/actuation spray,suspension 2 sprays INTNAS HS RF: 0 guaifenesin [Mucinex] 600 mg tablet extended release 12hr 600 mg PO BID PRN (Reason: Cough) RF: 0 prucalopride 2 mg tablet 2 mg PO DAILY RF: 0 Procrit 40,000 unit/mL Solution 60,000 unit subcut WK RF: 0 Ocuvite Eye Plus Multi 200-15-150 mcg Tablet 1 tab PO BID RF: 0 mirtazapine [Remeron] 30 mg tablet 30 mg PO HS RF: 0 multivitamin Tablet 1 tab PO QAM RF: 0 cetirizine [Zyrtec] 10 mg Tablet 10 mg PO QPM RF: 0 metoprolol succinate 25 mg Tablet Extended Release 24 Hr 25 mg PO QAM RF: 0 potassium chloride 20 mEq Tablet Extended Release 40 meq PO BID RF: 0 losartan 50 mg Tablet 50 mg PO QAM RF: 0 Boost 0.04 gram- 1 kcal/mL Liquid 1 ea PO TID RF: 0 Nutritional Shake Plus Liquid 1 ea PO BID RF: 0 Referrals Referrals: Edelmira Vargas MD [Primary Care Provider] -
--- NOTE | 2020-02-28 03:40 | History and Physical Report ---
DATE OF ADMISSION: 02/28/2020 CHIEF COMPLAINT: Not feeling good, seems to be short of breath and shaky at home, weakness. HISTORY OF PRESENT ILLNESS: This is an 84-year-old male with past medical history significant for CAD status post CABG x2, status post stent, history of senile macular degeneration, blindness in left eye, chronic diarrhea of unknown origin, hypertension, lung nodules, hyperlipidemia, hypokalemia, lost over 60 pounds in last 1 year, obstructive sleep apnea, not using CPAP because he lost weight, history of allergic rhinitis off nasal steroid due to history of epistaxis, history of prostate cancer and history of radiation therapy in 2008, myelodysplastic syndrome with chronic pancytopenia, receives Procrit injection every week as well as platelets transfusion with Hematology/Oncology, recently saw GI and was started him on multigrain 2 grams daily for his 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 The patient did okay and discharged home. Today was brought in by the because patient seems to be leaning on the chair and somewhat tachypneic and shaky. She was worried and brought him to the hospital. At that time he seemed to be somewhat confused but is currently back to his baseline. The patient is resting comfortably and hemodynamically stable. Has poor appetite, not ambulating much, uses walker. Chronic diarrhea, currently no abdominal pain, abdomen is soft. No nausea, no vomiting, no chest pain, no shortness of breath. Currently no fever. Denies any headaches. Blind in left eye. No earache, no runny nose, no sore throat. He sometimes has difficulty swallowing. ALLERGIES: TETANUS TOXOID, PENICILLIN, CHAZ INHIBITOR, ERYTHROMYCIN BASE. PAST MEDICAL HISTORY: As mentioned above. PAST SURGICAL HISTORY: Pertinent surgeries include, colonoscopy, injection of the eyes, prostate needle punch biopsy. MEDICATIONS: Currently the patient is on Tylenol 1000 mg p.o. q. 8 hours p.r.n., vitamin C 500 mg p.o. daily, Zyrtec 10 mg p.o. daily, Flonase 2 sprays into each nostril intranasally daily, food supplement lactose reduced Boost p.o. t.i.d.,, losartan 50 mg p.o. a.m., Toprol-XL 25 mg p.o. a.m., Remeron 30 mg p.o. at bedtime, multivitamin 1 tablet p.o. a.m., Ocuvite plus multivitamin 1 tablet p.o. b.i.d., potassium chloride 20 mEq p.o. b.i.d., Procrit 60,000 units subcutaneous weekly, prucalopride 2 mg daily, simethicone 250 mg p.o. b.i.d. p.r.n. FAMILY HISTORY: Significant for father had colon cancer. Mother had diabetes, heart disease. Brother has diabetes. SOCIAL HISTORY: and lives with his . Former smoker, quit in 1979, smoked for 20 years. No alcohol use, no drug use. REVIEW OF SYMPTOMS: As per HPI. Rest of review of systems negative. PHYSICAL EXAMINATION: GENERAL: The patient is old and frail, not in acute distress. VITAL SIGNS: Temperature 36.8, pulse 79, respiratory rate 16, blood pressure 114/73, oxygen 92% on room air. HEENT: No pallor, no icterus. Pupils equal, round, and reactive to light. Oral mucosa dry. NECK: No JVD, no neck masses. CARDIOVASCULAR: S1, S2, regular rate and rhythm, no murmur, no gallop. RESPIRATORY SYSTEM: Normal AP diameter. No accessory muscle use. No wheezing, no crackles. ABDOMEN: Soft, bowel sounds present, nontender. No distention. CENTRAL NERVOUS SYSTEM: Cranial nerves II-XII are grossly intact. Nonfocal. EXTREMITIES: Mild pedal edema, no erythema seen. LABORATORY DATA: WBC 5.3, hemoglobin 8.9, hematocrit 28.8, platelets 277. Sodium 134, potassium 3.1, chloride 104, bicarbonate 19, BUN 21, creatinine 1.5, serum glucose 93, calcium 8.4, total bilirubin 1.7, AST 14, ALT 16, alkaline phosphatase 92. Troponin I less than 0.015. Lipase 82. IMAGING: CT of abdomen and pelvis without contrast, preliminary report mild gaseous distention of the ascending and transverse colon, which is improved from the prior, focal transition from the distended to decompress within the descending colon, cholelithiasis. CT of the head, preliminary report, no acute findings. Chest x-ray, no obvious acute findings. EKG: Sinus rhythm with PACs at a rate of 78, nonspecific ST changes seen. Some questionable ST depressions in lateral leads. ASSESSMENT AND PLAN: This is an 84-year-old male presents with poor appetite, failure to thrive and some questionable tachypnea and shakiness at home. 1. Tachypnea and shakiness at home. Currently, the patient is asymptomatic and back to his baseline. We will observe on medical floor. 2. Recent volvulus. There is change of high recurrence, but patient has no symptoms and CT abdomen and pelvis is unremarkable. We will follow the final report. If there is recurrence there is plan for sigmoidectomy, as per the previous recent admission to be done at the tertiary care if patient and family agrees. Currently, seems to be stable. We will monitor for now. 3. Myelodysplastic syndrome with history of anemia and thrombocytopenia. Gets Procrit shots weekly and also platelet transfusions, platelet count is 27, hemoglobin is 8.9, which we will follow. 4. Hypokalemia, we will replace. 5. Acute kidney injury versus chronic kidney disease stage III, since October. In October his creatinine was 0.9. Since then, it is worsening, it is holding around 1.3-1.5, currently 1.5. We will follow the repeat labs. 6. Poor appetite, failure to thrive, lost 60 pounds in last 1 year, may need palliative care consult. is okay for palliative care consult. On Remeron and Boost. He has protein-calorie malnutrition, may need nutrition consult. 7. Generalized weakness. PT and OT. As per not much mobility, uses walker. 8. High blood pressure. Continue Toprol-XL and losartan. 9. History of prostate cancer had radiation treatment. 10. Coronary artery disease status post CABG, status post stent on Toprol-XL currently. 11. Deep venous thrombosis prophylaxis, sequential compression devices for now. 12. Disposition: Admit to medical floor. PT and OT prior to discharge. Social Service to help with discharge planning. Code status: DNR/DNI as per my discussion with the patient and the . MAULIK
[2020-02-28] MEDS ORDERED: ONDANSETRON INJ 2 MG/ML 2 ML VIAL IV PRN (05:52)
[2020-02-28] MEDS ORDERED: SIMETHICONE 80 MG CHEW PO PRN (05:52)
[2020-02-28] MEDS ORDERED: POTASSIUM CHLORIDE 20 MEQ/15 ML UDC PO STA (05:52)
[2020-02-28] MEDS ORDERED: guaiFENesin 600 MG TABCR PO PRN (05:52)
[2020-02-28] MEDS ORDERED: ACETAMINOPHEN 325 MG TAB PO PRN (05:52)
[2020-02-28] MEDS: D5W AND NSS 1,000 ML IV SCH (06:31)
[2020-02-28 07:00] LABS: Appearance Urine Clear (Clear); Bacteria Urine Automated Negative (Negative); Bilirubin Urine Negative (Negative); Blood Urine Negative (Negative); Color Urine Yellow; Glucose Urine UA Negative (Negative); Ketones Urine Negative (Negative); Leukocyte Esterase Urine Negative (Negative); Nitrite Urine Negative (Negative); Protein Urine Trace (Negative); Specific Gravity Urine 1.019 (1.000-1.030); Urobilinogen Urine Negative (Negative)
[2020-02-28 07:13] LABS: Calcium Oxalate Crystals Urine Present (None Prsent)
[2020-02-28 07:26] LABS: Mean Corpuscular Hgb Conc 32.1 g/dL (32-36)
[2020-02-28 07:27] LABS: Hematocrit (blood only) 27.4 % (42-52); Hemoglobin 8.8 g/dL (14.0-18.0); Mean Corpuscular Volume 77.8 fL (80-100); RDW Standard Deviation 56.5 fL (36.4-46.3); Red Blood Count 3.52 M/uL (4.7-6.1); White Blood Count 9.11 K/uL (4.8-10.8)
[2020-02-28 07:46] LABS: Nucleated RBC # (auto) 0.17 K/uL (0-0); Nucleated RBC % (auto) 1.9 %; Platelet Count 24 K/uL (130-400)
[2020-02-28 07:47] LABS: Acanthocytes 1+; Anisocytosis Present; Basophils # (auto) 0.03 K/uL (0-0.2); Basophils % (auto) 0.3 %; Dohle Bodies 1+; Echinocytes 1+; Hypochromasia Present; Immature Granulocytes # (auto) 0.14 K/uL (0.00-0.02); Immature Granulocytes % (auto) 1.5 %; Lymphocytes # (auto) 0.93 K/uL (1.2-3.4); Lymphocytes % (auto) 10.2 %; Macrocytosis Present; Monocytes % (auto) 6.6 %; Neutrophils # (auto) 7.41 K/uL (1.4-6.5); Neutrophils % (auto) 81.4 %; Ovalocytes 1+; Platelet Estimate SIGNIFIC DECREASED (Normal); Polychromasia 1+; Schistocytes 1+
[2020-02-28 08:00] LABS: BUN Creatinine Ratio 15.5 (10-20); Blood Urea Nitrogen 21 mg/dl (7-18); Calcium 7.8 mg/dl (8.5-10.1); Carbon Dioxide 19 mmol/L (21-32); Chloride 107 mmol/L (98-107); Est GFR (African American) 54.9; Est GFR (Non-African American) 47.4; Glucose 85 mg/dl (70-99); Magnesium 1.7 mg/dl (1.8-2.4); Potassium 2.9 mmol/L (3.5-5.1); Sodium 137 mmol/L (136-145)
[2020-02-28 08:02] LABS: Troponin I < 0.015 ng/ml (0-0.045)
--- NOTE | 2020-02-28 08:46 | CT Scan Report ---
CT SCAN OF THE ABDOMEN AND PELVIS WITHOUT CONTRAST CLINICAL HISTORY: Abdominal pain. History of volvulus. Bloating. COMPARISON STUDY: 02/20/2020 TECHNIQUE: CT scan of the abdomen and pelvis was performed from the lung bases to the proximal femurs . Images are reviewed in the axial, sagittal, and coronal planes. IV contrast was not administered fo r this examination. A dose lowering technique was utilized adhering to the principles of ALARA. CT DOSE: FINDINGS: Lower chest: There are bilateral pleural effusions right greater than left. There are associated depe ndent atelectatic changes. Liver: The unenhanced liver is normal in size, contour, and attenuation. There is no intrahepatic herson iary ductal dilatation. Gallbladder: Cholelithiasis Spleen: Enlarged measuring 16.3 cm Pancreas: Unremarkable. Adrenal glands: Unremarkable. Kidneys: There is bilateral nephrolithiasis. There is no hydronephrosis. No ureteral or bladder calcu li are visualized Bowel: Evaluation of bowel is significantly limited due to the paucity of intra-abdominal fat and the lack of oral and intravenous contrast. There is diminished colonic distention when compared the prec eding study. There is nonspecific stranding within the mesentery at the level of the splenic flexure. There is a colonic transition zone at this level. There is significant bowel wall thickening involvi ng the mid transverse colon. Peritoneum: There is no intraperitoneal free air or abdominal ascites. Vasculature: The abdominal aorta is normal in course and caliber. Adenopathy: None. Pelvic viscera: Prostate brachytherapy seeds are visualized. Skeletal structures: No destructive osseous lesions are seen. IMPRESSION: 1. Technically limited study secondary to the paucity of intra-abdominal fat and the lack of intraven ous and oral contrast 2. Bilateral pleural effusions right greater than left 3. Cholelithiasis 4. Splenomegaly 5. Bilateral nephrolithiasis. No hydronephrosis 6. Focal colonic wall thickening within the transverse colon, focal colitis versus malignancy. 7. Diminished bowel distention when compared the preceding study. There is persistent stranding of th e mesentery near the level of the splenic flexure and there is a related colonic transition zone at t his level ACT 112: Negative or not required by law. Electronically signed by: Prabhjot Melgoza M.D. 02/28/2020 7:15 AM
--- NOTE | 2020-02-28 08:46 | CT Scan Report ---
CT head/brain wo con CLINICAL HISTORY: confusion COMPARISON STUDY: 09/18/2019 TECHNIQUE: Axial CT of the brain is performed from the vertex to the skull base. IV contrast was not administered for this examination. A dose lowering technique was utilized adhering to the principles of ALARA. CT DOSE: 1519.00 mGy.cm FINDINGS: No intra or extra-axial mass lesions are visualized. There is no CT evidence of acute cortical infarc tion. There is no evidence of midline shift. There is no acute hemorrhage. No calvarial fractures ar e visualized. There are patchy white matter hypodensities likely on a small vessel basis. There is no evidence of pathologic ventricular dilatation. There is opacification of a right posterior ethmoid air cell IMPRESSION: No acute intracranial findings ACT 112: Negative or not required by law. Electronically signed by: Prabhjot Melgoza M.D. 02/28/2020 6:48 AM
--- NOTE | 2020-02-28 08:47 | XRay Report ---
XR chest 1V portable HISTORY: Atypical chest pain COMPARISON: Chest 02/21/2020. FINDINGS: No pneumothorax or no pleural effusions. The heart is normal in size. There are poststernot zeferino changes. Distended and gas-filled colon has slightly improved. There is mild central pulmonary va scular congestion without overt edema. Bibasilar densities persist. Old, healed right-sided rib fract ures. IMPRESSION: 1. No significant change compared to the prior study. 2. Mild central pulmonary vascular congestion without overt edema. 3. Bibasilar hazy densities persist. This may represent atelectasis or pneumonia. 4. Slight improvement in the gaseous distention of the colon. ACT 112: Negative or not required by law. Electronically signed by: Florian Hernandez M.D. 02/28/2020 7:57 AM
[2020-02-28] MEDS ORDERED: FOOD SUPPLEMT LACTOSE REDUCED PO SCH (09:00)
[2020-02-28] MEDS ORDERED: NON-FORMULARY MEDICATION (Food Supplemt, Lactose-Reduced [Boost] 1 EA) PO SCH (09:00)
[2020-02-28] MEDS: CEROVITE ADV FORMULA TAB PO SCH (09:02)
[2020-02-28] MEDS: ASCORBIC ACID 500 MG TAB PO SCH (09:02)
[2020-02-28] MEDS: MULTIVITAMIN TAB PO SCH (09:02)
[2020-02-28] MEDS: LOSARTAN POTASSIUM 50 MG TAB PO SCH (09:02)
[2020-02-28] MEDS: POTASSIUM CHLORIDE 20 MEQ TABCR PO SCH ×2 (09:02→21:25)
[2020-02-28] MEDS: METOPROLOL SUCC 25MG EXT REL TAB PO SCH (09:02)
--- NOTE | 2020-02-28 11:52 | Hospitalist Progress Note ---
Date of Service February 28, 2020 Assessment & Plan (1) Weakness: ASSESSMENT AND PLAN: This is an 84-year-old male presents with poor appetite, failure to thrive and some questionable tachypnea and shakiness at home. 1. Tachypnea and shakiness at home. Currently, the patient is asymptomatic and back to his baseline. We will observe on medical floor. 2. Recent volvulus. There is change of high recurrence, but patient has no symptoms and CT abdomen and pelvis is unremarkable. We will follow the final report. If there is recurrence there is plan for sigmoidectomy, as per the previous recent admission to be done at the tertiary care if patient and family agrees. Currently, seems to be stable. We will monitor for now. 3. Myelodysplastic syndrome with history of anemia and thrombocytopenia. Gets Procrit shots weekly and also platelet transfusions, platelet count is 27, hemoglobin is 8.9, which we will follow. 4. Hypokalemia, we will replace. 5. Acute kidney injury versus chronic kidney disease stage III, since October. In October his creatinine was 0.9. Since then, it is worsening, it is holding around 1.3-1.5, currently 1.5. We will follow the repeat labs. 6. Poor appetite, failure to thrive, lost 60 pounds in last 1 year, may need palliative care consult. is okay for palliative care consult. On Remeron and Boost. He has protein-calorie malnutrition, may need nutrition consult. 7. Generalized weakness. PT and OT. As per not much mobility, uses walker. 8. High blood pressure. Continue Toprol-XL and losartan. 9. History of prostate cancer had radiation treatment. 10. Coronary artery disease status post CABG, status post stent on Toprol-XL currently. 11. Deep venous thrombosis prophylaxis, sequential compression devices for now. Disposition: Admit to medical floor. PT and OT prior to discharge. Social Service to help with discharge planning. Code status: DNR/DNI as per discussion with the patient and the . Palliative care eval ROS-No Headache, No Visual Changes, No Nausea, No Vomiting, No Fever, No Chills, No Neck Pain or Stiffness, No Chest Pain, No Palpitations, No SOB, No SANTIAGO, No Cough, No Sputum, No Wheezing, No Abdominal Pain, No Diarrhea, No Hematemesis, No Hemoptysis, No Unexpected Weight Loss, No Flank pain, No Melena, No Hematochezia, No Frequency, No Urgency, No Burning, No Hematuria, No Rashes, No Diaphoresis. Appetite is Normal Physical Exam Gen-AAO x 3, NAD, Afebrile Head-NCAT, EOMI, PERRLA, Anicteric Sclera, No Posterior Pharyngeal Erythema Neck-Supple, No JVD, No Thyromegaly, No Masses, No LAD, No Bruits Lungs-Clear to Auscultation Bilaterally, No Rales, No Rhonchi, No Wheezing, No Crepitus Chest-No S4, +S1, +S2, No S3, No Murmurs, No Rubs, No Gallops, No Ectopy Abdomen-Soft, Bowel Sounds Present, Non Tender, Non Distended, No Hepatomegaly, No Splenomegaly, No Palpable Masses, No Rebound, No Rigidity, No Guarding Musculoskeletal-Full Range of Motion Bilaterally, No CVAT Extremities-No Cyanosis, No Clubbing, No Edema Nuero-Cranial Nerves II-XII grossly intact, Motor WNL, DTRs WNL, Strength WNL, Non Focal Psych-Normal Mood Admission and Anticipated Discharge Date Admission Date: February 28, 2020 Anticipated date of discharge: 03/01/20 Results & Data Results & Data ([facility]) Vital Signs (Past 12 Hours) Vital Signs Temp Pulse Pulse Resp BP BP Pulse Ox 02/28/20 07:45 36.9 C 75 16 114/54 L 97 02/28/20 05:55 36.6 C 78 16 124/68 99 02/28/20 05:00 80 29 H 91/43 L 02/28/20 04:30 83 23 85/45 L 02/28/20 04:01 74 23 78/25 L 02/28/20 04:00 77 23 02/28/20 03:30 82 28 H 113/52 L 02/28/20 03:00 71 26 H 113/56 L 02/28/20 02:30 71 29 H 86/46 L 02/28/20 02:02 79 26 H 81/42 L 02/28/20 02:00 79 30 H 79/44 L 02/28/20 01:30 82 30 H 100/53 L 02/28/20 01:02 78 31 H 85/43 L 02/28/20 01:00 78 27 H 02/28/20 00:31 89 29 H 137/60 02/28/20 00:30 87 30 H 02/28/20 00:01 75 24 147/60 H 02/28/20 00:00 82 23
[2020-02-28] MEDS: POTASSIUM CHLORIDE / WTR 10 MEQ/100 ML PLCT IV SCH ×4 (14:13→17:39)
[2020-02-28] MEDS: MAGNESIUM OXIDE 400 MG TAB PO SCH ×2 (14:14→21:25)
--- NOTE | 2020-02-28 14:58 | Palliative Care Consultation ---
Date of Consultation February 28, 2020 Assessment & Plan (1) Palliative care encounter: Patient is an 84-year-old gentleman who is a fair historian. His is equally a fair historian. Spoke with patient's dysbnmmm-py-xby Radha, [phone] after trying unsuccessfully to contact his at [phone]. When trying to call the the phone would ring twice and then silence, attempted to call twice. Daughter reports that patient was having increased shortness of breath at home went to see Dr. Oliva on Tuesday when he was noted to have increased lower extremity edema. Daughter reports that his BNP was elevated above 16,000 and he was hypotensive. Dr. Oliva had adjusted his losartan-if blood pressure was low he was not to take it, if it was mildly elevated he was supposed to take 25 mg and if it was over 140 he was supposed to take a whole 50 mg tab. He was also started on Lasix and likely received only 1 dose on Tuesday morning. On review of patient's home medications he is on Motegrity which is a prokinetic agent and is likely contributing to his diarrhea. [id number]-[id number] reports that he was started on this last summer and she thinks he is still taking it. - Patient was hospitalized earlier this month for sigmoid volvulus-he underwent colonoscopy for decompression which was successful. Patient denies abdominal pain or bloating since discharge on 02/21. -Patient with pancytopenia due to MDS-he receives weekly platelets. His platelet count was reportedly 16K on Tuesday prior to transfusion. -Patient's hbfnfrsz-[id number] will go over to patient's home later this afternoon and review pillbox and determine if he has been getting his Motegrity regularly. Patient did receive some IV fluids for hypotension in the emergency room and blood pressure improved. Patient states he does not have advanced directives, that his and children would be his medical decision makers. Current's CODE STATUS is DNR/DNI (2) Shortness of breath: Improved per patient. Patient with hypotension on admission likely due to dehydration due to chronic diarrhea. Gets short of breath with minimal exertion, deconditioned (3) MDS (myelodysplastic syndrome): Weekly platelet transfusions, monitor CBCs (4) Diarrhea: Has been an ongoing issue since December 2017-did have a history of C. difficile which resolved. On review of home meds patient is taking Motegrity which is a prokinetic agent and likely contributing if not causing the diarrhea. Patient is currently not on Motegrity-has had 1 bowel movement per nursing documentation. (5) Hypotension: Responded to IV fluids-could be partially due to to volume depletion given ongoing diarrhea. Patient with an elevated BMP per [id number]-ju-[id number]-was started on Lasix daily, has likely only received 1 dose prior to admission. Patient's losartan was adjusted as an outpatient on 02/24 (6) Weakness: Patient thin and cachectic, likely due to protein calorie malnutrition, frequent diarrhea with poor appetite. Patient feels if the diarrhea would stop he would be doing a lot better. (7) Hypokalemia: Likely due to GI losses, patient on potassium supplementation at home. Potassium 2.9 this a.m. -receiving IV potassium History of Present Illness Reason for Consultation: Address goals of care Requesting Physician: Dr Kelly Attending Physician: Woody Michael, History of Present Illness Patient is an 84-year-old gentleman who is a fair historian. His is equally a fair historian. Spoke with patient's dyhiqudh-qq-cna Radha, [phone] after trying unsuccessfully to contact his at [phone]. When trying to call the the phone would ring twice and then silence, attempted to call twice. Daughter reports that patient was having increased shortness of breath at home went to see Dr. Oliva on Tuesday when he was noted to have increased lower extremity edema. Daughter reports that his BNP was elevated above 16,000 and he was hypotensive. Dr. Oliva had adjusted his losartan-if blood pressure was low he was not to take it, if it was mildly elevated he was supposed to take 25 mg and if it was over 140 he was supposed to take a whole 50 mg tab. He was also started on Lasix and likely received only 1 dose on Tuesday morning. On review of patient's home medications he is on Motegrity which is a prokinetic agent and is likely contributing to his diarrhea. Fitkcgrl-oj-pvq reports that he was started on this last summer and she thinks he is still taking it. Patient was hospitalized earlier this month for sigmoid volvulus-he underwent colonoscopy for decompression which was successful. Patient denies abdominal pain or bloating since discharge on 02/21. Patient with pancytopenia due to MDS- he receives weekly platelets. His platelet count was reportedly 16K on Tuesday prior to transfusion. Patient did receive some IV fluids for hypotension in the emergency room and blood pressure improved. Patient states he does not have advanced directives, that his and children would be his medical decision makers. Allergies Allergy/AdvReac Type Severity Reaction Status Date / Time tetanus toxoid, adsorbed Allergy Severe SWELLING Verified 02/20/20 22:15 Penicillins Allergy Intermediate HIVES Verified 02/20/20 22:15 CHAZ Inhibitors AdvReac Intermediate COUGH Verified 02/20/20 22:15 erythromycin base AdvReac Intermediate DIARRHEA Verified 02/20/20 22:15 Home Medications Home Medications Medication Instructions Recorded Confirmed Type cetirizine [Zyrtec] 10 mg PO QPM 05/19/18 02/27/20 History losartan 50 mg PO QAM 05/19/18 02/27/20 History metoprolol succinate 25 mg PO QAM 05/19/18 02/27/20 History multivitamin 1 tab PO QAM 05/19/18 02/27/20 History potassium chloride 20 meq PO BID 05/19/18 02/28/20 History Procrit 60,000 unit SUBCUT WK 06/19/19 02/27/20 History Ocuvite Eye Plus Multi 1 tab PO BID 09/18/19 02/27/20 History acetaminophen 500 mg capsule 1,000 mg PO Q8H PRN cap 02/13/20 02/27/20 History ascorbate calcium (vitamin C) 500 500 mg PO DAILY 02/13/20 02/27/20 History mg tablet fluticasone propionate 50 2 sprays INTNAS HS ml 02/13/20 02/27/20 History mcg/actuation nasal spray,suspension guaifenesin 600 mg tablet, 600 mg PO BID PRN 02/13/20 02/27/20 History extended release 12 hr prucalopride 2 mg tablet 2 mg PO DAILY 02/13/20 02/27/20 History simethicone 125 mg capsule 250 mg PO BID PRN cap 02/13/20 02/27/20 History mirtazapine [Remeron] 30 mg PO HS 02/20/20 02/27/20 History food supplemt, lactose-reduced 1 ea PO TID 02/27/20 02/27/20 History [Boost] food supplemt, lactose-reduced 1 ea PO BID 02/27/20 02/27/20 History [Nutritional Shake Plus] Patient History Medical History Acute kidney injury Cancer of skin of left leg REMOVED IN OFFICE Chronic anemia Cough (Acute) Encounter for pre-operative examination 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, 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 RODRIGUEZ History of heart artery stent 2013 X1 STENT @ [facility] FOLLOWS W DR. RODRIGUEZ History of tonsillectomy History of tooth extraction ALL TEETH Hx of vasectomy Family History Other No pertinent family history in first degree relatives Social History Preferred Language: [place] Communication Ability: Effective Urology Teacher Required: No Beliefs That Will Affect Care: None marital status: Current Living Situation: Spouse Current Living Situation Comment: Home with spouse, Sons come in for bathing assistance Feels Safe at Home: Yes Safety Concerns: Feels Safe At This Time Smoking Status: Never smoker Tobacco Type: cigars ; Do You Dip or Chew Tobacco: No ; Second Hand Exposure: No ; Tobacco Cessation Education Requested by Patient: No Hx Alcohol Use: No Hx Substance Use: No Review of Systems Review of Systems: Patient denies fever, cough, chest pain, abdominal pain + For shortness of breath with minimal exertion, positive for diarrhea, positive for weakness and unsteady gait. Physical Exam Physical Exam: PE: Patient awake and alert, sitting in a chair at side of bed, NAD HEENT: Patient deaf in the right ear, has hearing aid in the left. Reportedly left blindness Respirations: Unlabored, no rhonchi or rales CV: Regular rate, trace edema on right, trace-1+ left lower extremity to just above the ankle. Abdomen: Soft, nontender, mildly distended Extremities: Thin and cachectic Neuro: Alert and oriented to person place and time Results & Data Vital Signs (Past 12 Hours) Vital Signs Temp Pulse Pulse Resp BP BP Pulse Ox 02/28/20 07:45 98.4 F 75 16 114/54 L 97 02/28/20 05:55 97.9 F 78 16 124/68 99 02/28/20 05:00 80 29 H 91/43 L 02/28/20 04:30 83 23 85/45 L 02/28/20 04:01 74 23 78/25 L 02/28/20 04:00 77 23 02/28/20 03:30 82 28 H 113/52 L 02/28/20 03:00 71 26 H 113/56 L PG Care Time/CCT Total # of Minutes Spent Total Time Spent with Patient: Total time spent 70 minutes on 2 separate visits with patient as well as 2 phone calls to eecbsqlx-ld-dal and son, collaborated with attending physician. Coding Level of Care Code 19524 Inpt Consult Level 3 Diagnoses Palliative care encounter Z51.5 Shortness of breath R06.02 MDS (myelodysplastic syndrome) D46.9 Diarrhea R19.7 Hypotension I95.9 Weakness R53.1 Hypokalemia E87.6 Time Spent (min) 70
--- NOTE | 2020-02-28 16:50 | Electrocardiogram Report ---
Test Reason : Blood Pressure : / mmHG Vent. Rate : 078 BPM Atrial Rate : 078 BPM P-R Int : 150 ms QRS Dur : 112 ms QT Int : 506 ms P-R-T Axes : 043 -17 063 degrees QTc Int : 576 ms Sinus rhythm with Premature atrial complexes with Aberrant conduction Incomplete right bundle branch block Possible Anterior infarct , age undetermined Prolonged QT Abnormal ECG When compared with ECG of 20-FEB-2020 22:00, Incomplete right bundle branch block is now Present Borderline criteria for Anterior infarct are now Present Confirmed by Silviano Torres ([id number]) on 02/28/2020 4:49:39 PM Referred By: REFERRED SELF Confirmed By:Silviano Torres
[2020-02-28] MEDS: PSYLLIUM 58.6% POWDER PACKET PO SCH (17:39)
--- NOTE | 2020-02-28 19:26 | Surgery Consultation ---
Date of Consultation February 28, 2020 Assessment & Plan (1) Volvulus: pt is a 84 year-old male who was admitted to hospital for colon volvulus, IMP: colon volvulus resolved plan, no surgical indication now, conservative treatment, will F/U History of Present Illness Attending Physician: Woody Michael DO CHIEF COMPLAINT: Not feeling good, seems to be short of breath and shaky at home, weakness. HISTORY OF PRESENT ILLNESS: This is an 84-year-old male with past medical history significant for CAD status post CABG x2, status post stent, history of senile macular degeneration, blindness in left eye, chronic diarrhea of unknown origin, hypertension, lung nodules, hyperlipidemia, hypokalemia, lost over 60 pounds in last 1 year, obstructive sleep apnea, not using CPAP because he lost weight, history of allergic rhinitis off nasal steroid due to history of epistaxis, history of prostate cancer and history of radiation therapy in 2008, myelodysplastic syndrome with chronic pancytopenia, receives Procrit injection every week as well as platelets transfusion with Hematology/Oncology, recently saw GI and was started him on multigrain 2 grams daily for his 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 The patient did okay and discharged home. Today was brought in by the because patient seems to be leaning on the chair and somewhat tachypneic and shaky. She was worried and brought him to the hospital. At that time he seemed to be somewhat confused but is currently back to his baseline. The patient is resting comfortably and hemodynamically stable. Has poor appetite, not ambulating much, uses walker. Chronic diarrhea, currently no abdominal pain, abdomen is soft. No nausea, no vomiting, no chest pain, no shortness of breath. Currently no fever. Denies any headaches. Blind in left eye. No earache, no runny nose, no sore throat. He sometimes has difficulty swallowing. I ( Dary Loco MD ) got a call for abdominal pain, I reviewed pt;s H/P, labs, CT scan with pt, pt denies abdominal pain now, no nausea, no vomiting, pt can tolerated diet, ALLERGIES: TETANUS TOXOID, PENICILLIN, CHAZ INHIBITOR, ERYTHROMYCIN BASE. PAST MEDICAL HISTORY: As mentioned above. PAST SURGICAL HISTORY: Pertinent surgeries include, colonoscopy, injection of the eyes, prostate needle punch biopsy. MEDICATIONS: Currently the patient is on Tylenol 1000 mg p.o. q. 8 hours p.r.n., vitamin C 500 mg p.o. daily, Zyrtec 10 mg p.o. daily, Flonase 2 sprays into each nostril intranasally daily, food supplement lactose reduced Boost p.o. t.i.d.,, losartan 50 mg p.o. a.m., Toprol-XL 25 mg p.o. a.m., Remeron 30 mg p.o. at bedtime, multivitamin 1 tablet p.o. a.m., Ocuvite plus multivitamin 1 tablet p.o. b.i.d., potassium chloride 20 mEq p.o. b.i.d., Procrit 60,000 units subcutaneous weekly, prucalopride 2 mg daily, simethicone 250 mg p.o. b.i.d. p.r.n. FAMILY HISTORY: Significant for father had colon cancer. Mother had diabetes, heart disease. Brother has diabetes. SOCIAL HISTORY: and lives with his . Former smoker, quit in 1979, smoked for 20 years. No alcohol use, no drug use. REVIEW OF SYMPTOMS: As per HPI. Rest of review of systems negative. Allergies Allergy/AdvReac Type Severity Reaction Status Date / Time tetanus toxoid, adsorbed Allergy Severe SWELLING Verified 02/20/20 22:15 Penicillins Allergy Intermediate HIVES Verified 02/20/20 22:15 CHAZ Inhibitors AdvReac Intermediate COUGH Verified 02/20/20 22:15 erythromycin base AdvReac Intermediate DIARRHEA Verified 02/20/20 22:15 Home Medications Home Medications Medication Instructions Recorded Confirmed Type cetirizine [Zyrtec] 10 mg PO QPM 05/19/18 02/27/20 History losartan 50 mg PO QAM 05/19/18 02/27/20 History metoprolol succinate 25 mg PO QAM 05/19/18 02/27/20 History multivitamin 1 tab PO QAM 05/19/18 02/27/20 History potassium chloride 20 meq PO BID 05/19/18 02/28/20 History Procrit 60,000 unit SUBCUT WK 06/19/19 02/27/20 History Ocuvite Eye Plus Multi 1 tab PO BID 09/18/19 02/27/20 History acetaminophen 500 mg capsule 1,000 mg PO Q8H PRN cap 02/13/20 02/27/20 History ascorbate calcium (vitamin C) 500 500 mg PO DAILY 02/13/20 02/27/20 History mg tablet fluticasone propionate 50 2 sprays INTNAS HS ml 02/13/20 02/27/20 History mcg/actuation nasal spray,suspension guaifenesin 600 mg tablet, 600 mg PO BID PRN 02/13/20 02/27/20 History extended release 12 hr prucalopride 2 mg tablet 2 mg PO DAILY 02/13/20 02/27/20 History simethicone 125 mg capsule 250 mg PO BID PRN cap 02/13/20 02/27/20 History mirtazapine [Remeron] 30 mg PO HS 02/20/20 02/27/20 History food supplemt, lactose-reduced 1 ea PO TID 02/27/20 02/27/20 History [Boost] food supplemt, lactose-reduced 1 ea PO BID 02/27/20 02/27/20 History [Nutritional Shake Plus] Patient History Medical History Acute kidney injury Cancer of skin of left leg REMOVED IN OFFICE Chronic anemia Cough (Acute) Encounter for pre-operative examination 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, L 60% Hypercholesteremia (Chronic) Hyperlipidemia Hypertension (Chronic) Hypertension Lingular pneumonia (Acute) Macular degeneration of left eye Multiple myeloma PER --PT HAS LOW PLATELETS (LAST WAS below 10), RECEIVING PROCRIT EVERY 2 WEEKS Nasal bleeding (Acute) Osteoarthritis Prostate cancer 2008 RADIOACTIVE SEEDS IMPLANTED Rib fracture (Acute) Sleep apnea CPAP Weight loss Surgical History History of cardiac cath X3 2010, 2012 (2) History of carpal tunnel release RIGHT HAND X2 History of colonoscopy History of coronary artery bypass graft DOUBLE 2011 @ [facility] FOLLOWS DR. RODRIGUEZ History of heart artery stent 2013 X1 STENT @ [facility] FOLLOWS W DR. RODRIGUEZ History of tonsillectomy History of tooth extraction ALL TEETH Hx of vasectomy Family History Other No pertinent family history in first degree relatives Social History Preferred Language: Guine[place] Communication Ability: Effective Tai Chi Instructor Required: No Beliefs That Will Affect Care: None marital status: Current Living Situation: Spouse Current Living Situation Comment: Home with spouse, Sons come in for bathing assistance Feels Safe at Home: Yes Safety Concerns: Feels Safe At This Time Smoking Status: Never smoker Tobacco Type: cigars ; Do You Dip or Chew Tobacco: No ; Second Hand Exposure: No ; Tobacco Cessation Education Requested by Patient: No Hx Alcohol Use: No Hx Substance Use: No Physical Exam Constitutional: WD/WN, vitals as above well developed and well nourished Eyes: PERRL, conjunctivae normal, anicteric sclerae ENMT: external ear and nose normal, oropharynx normal Neck: trachea midline, no thyromegaly Respiratory: normal respiratory effort, lungs clear to auscultation Cardiovascular: RRR, no murmur, no edema Gastrointestinal (Abdomen): normal bowel sounds, soft, nontender, no hepatosplenomegaly Percussion/Palpation: abdomen soft NT, ND, BS + Musculoskeletal: Head/Neck/Chest: head atraumatic Skin: no rashes, warm and dry Neurologic: awake Psychiatric: Orientation: alert and oriented to place Results & Data Vital Signs (Past 12 Hours) Vital Signs Temp Pulse Resp BP Pulse Ox 02/28/20 15:18 36.6 C 82 18 116/69 100 02/28/20 07:45 36.9 C 75 16 114/54 L 97 Laboratory Results Abnormal lab results 02/27/20 02/27/20 02/28/20 Range/Units 22:50 22:50 06:40 RBC 3.64 L (4.7-6.1) M/uL Hgb 8.9 L (14.0-18.0) g/dL Hct 28.8 L (42-52) % MCV 79.1 L (80-100) fL MCH 24.5 L (25-34) pg MCHC 30.9 L (32-36) g/dL RDW Std Deviation 57.7 H (36.4-46.3) fL RDW Coeff of Marguerite 21.0 H (11.5-14.5) % Plt Count 27 L* (130-400) K/uL Neut # (Auto) (1.4-6.5) K/uL Lymph # (Auto) (1.2-3.4) K/uL Frio # (Auto) (0.11-0.59) K/uL Immature Gran # (Auto) (0.00-0.02) K/uL Absolute Nucleated RBC 0.18 H (0-0) K/uL Lymphocytes # (Manual) 0.32 L (1.2-3.4) K/uL Total Abs Lymphocytes 0.32 L (1.2-3.4) K/uL Monocytes # (Manual) 0.05 L (0.11-0.59) K/uL Sodium 134 L (136-145) mmol/L Potassium 3.1 L (3.5-5.1) mmol/L Carbon Dioxide 19 L (21-32) mmol/L BUN 21 H (7-18) mg/dl Creatinine 1.50 H (0.6-1.4) mg/dl Calcium 8.4 L (8.5-10.1) mg/dl Magnesium (1.8-2.4) mg/dl Total Bilirubin 1.7 H (0.2-1) mg/dl AST 14 L (15-37) U/L Albumin 2.7 L (3.4-5.0) gm/dl Globulin 5.0 H (2.5-4.0) gm/dl Albumin/Globulin Ratio 0.5 L (0.9-2) Prealbumin (20-40) mg/dl Urine Protein Trace H (Negative) Urine RBC (Auto) 5-10 H (0-4) /hpf U Hyaline Cast (Auto) 5-10 H (0-5) /lpf U Epithel Cells (Auto) 5-10 H (0-5) /lpf Calcium Oxalate Crystal Present A (None Prsent) 02/28/20 02/28/20 02/28/20 Range/Units 06:54 06:54 06:54 RBC 3.52 L (4.7-6.1) M/uL Hgb 8.8 L (14.0-18.0) g/dL Hct 27.4 L (42-52) % MCV 77.8 L (80-100) fL MCH (25-34) pg MCHC (32-36) g/dL RDW Std Deviation 56.5 H (36.4-46.3) fL RDW Coeff of Marguerite 21.0 H (11.5-14.5) % Plt Count 24 L* (130-400) K/uL Neut # (Auto) 7.41 H (1.4-6.5) K/uL Lymph # (Auto) 0.93 L (1.2-3.4) K/uL Frio # (Auto) 0.60 H (0.11-0.59) K/uL Immature Gran # (Auto) 0.14 H (0.00-0.02) K/uL Absolute Nucleated RBC 0.17 H (0-0) K/uL Lymphocytes # (Manual) (1.2-3.4) K/uL Total Abs Lymphocytes (1.2-3.4) K/uL Monocytes # (Manual) (0.11-0.59) K/uL Sodium (136-145) mmol/L Potassium 2.9 L (3.5-5.1) mmol/L Carbon Dioxide 19 L (21-32) mmol/L BUN 21 H (7-18) mg/dl Creatinine (0.6-1.4) mg/dl Calcium 7.8 L (8.5-10.1) mg/dl Magnesium 1.7 L (1.8-2.4) mg/dl Total Bilirubin (0.2-1) mg/dl AST (15-37) U/L Albumin (3.4-5.0) gm/dl Globulin (2.5-4.0) gm/dl Albumin/Globulin Ratio (0.9-2) Prealbumin 7.1 L (20-40) mg/dl Urine Protein (Negative) Urine RBC (Auto) (0-4) /hpf U Hyaline Cast (Auto) (0-5) /lpf U Epithel Cells (Auto) (0-5) /lpf Calcium Oxalate Crystal (None Prsent) Diagnostic Findings CT SCAN OF THE ABDOMEN AND PELVIS WITHOUT CONTRAST CLINICAL HISTORY: Abdominal pain. History of volvulus. Bloating. COMPARISON STUDY: 02/20/2020 TECHNIQUE: CT scan of the abdomen and pelvis was performed from the lung bases to the proximal femurs. Images are reviewed in the axial, sagittal, and coronal planes. IV contrast was not administered for this examination. A dose lowering technique was utilized adhering to the principles of ALARA. CT DOSE: FINDINGS: Lower chest: There are bilateral pleural effusions right greater than left. There are associated dependent atelectatic changes. Liver: The unenhanced liver is normal in size, contour, and attenuation. There is no intrahepatic biliary ductal dilatation. Gallbladder: Cholelithiasis Spleen: Enlarged measuring 16.3 cm Pancreas: Unremarkable. Adrenal glands: Unremarkable. Kidneys: There is bilateral nephrolithiasis. There is no hydronephrosis. No ureteral or bladder calculi are visualized Bowel: Evaluation of bowel is significantly limited due to the paucity of intra- abdominal fat and the lack of oral and intravenous contrast. There is diminished colonic distention when compared the preceding study. There is nonspecific stranding within the mesentery at the level of the splenic flexure. There is a colonic transition zone at this level. There is significant bowel wall thickening involving the mid transverse colon. Peritoneum: There is no intraperitoneal free air or abdominal ascites. Vasculature: The abdominal aorta is normal in course and caliber. Adenopathy: None. Pelvic viscera: Prostate brachytherapy seeds are visualized. Skeletal structures: No destructive osseous lesions are seen. IMPRESSION: 1. Technically limited study secondary to the paucity of intra-abdominal fat and the lack of intravenous and oral contrast 2. Bilateral pleural effusions right greater than left 3. Cholelithiasis 4. Splenomegaly 5. Bilateral nephrolithiasis. No hydronephrosis 6. Focal colonic wall thickening within the transverse colon, focal colitis versus malignancy. 7. Diminished bowel distention when compared the preceding study. There is persistent stranding of the mesentery near the level of the splenic flexure and there is a related colonic transition zone at this level
[2020-02-28] MEDS: CETIRIZINE HCL 10 MG TABLET PO SCH (21:25)
[2020-02-28] MEDS: FLUTICASONE PROPIONATE NA SPR 16 GM BTL SCH (21:25)
[2020-02-28] MEDS: MIRTAZAPINE TAB 15 MG TAB PO SCH (21:26)
--- NOTE | 2020-02-28 21:42 | Electrocardiogram Report ---
Test Reason : Blood Pressure : / mmHG Vent. Rate : 071 BPM Atrial Rate : 071 BPM P-R Int : 136 ms QRS Dur : 100 ms QT Int : 444 ms P-R-T Axes : 014 -04 074 degrees QTc Int : 482 ms Sinus rhythm with occasional Premature ventricular complexes Prolonged QT Abnormal ECG When compared with ECG of 27-FEB-2020 22:45, Premature ventricular complexes are now Present Incomplete right bundle branch block is no longer Present Borderline criteria for Anterior infarct are no longer Present Confirmed by Silviano Torres ([id number]) on 02/28/2020 9:41:51 PM Referred By: REFERRED SELF Confirmed By:Silviano Torres
[2020-02-28] MEDS ORDERED: CHOLESTYRAMINE LIGHT 4 GM PKT PO SCH (22:00)
[2020-02-29] MEDS: D5W AND NSS 1,000 ML IV SCH (07:51)
[2020-02-29] MEDS: LOSARTAN POTASSIUM 50 MG TAB PO SCH (10:23)
[2020-02-29] MEDS: POTASSIUM CHLORIDE 20 MEQ TABCR PO SCH ×2 (10:23→20:55)
[2020-02-29] MEDS: MAGNESIUM OXIDE 400 MG TAB PO SCH ×2 (10:24→20:55)
[2020-02-29] MEDS: CEROVITE ADV FORMULA TAB PO SCH (10:24)
[2020-02-29] MEDS: MULTIVITAMIN TAB PO SCH (10:24)
[2020-02-29] MEDS: METOPROLOL SUCC 25MG EXT REL TAB PO SCH (10:25)
[2020-02-29] MEDS: ASCORBIC ACID 500 MG TAB PO SCH (10:25)
--- NOTE | 2020-02-29 11:47 | Surgery Progress Note ---
Date of Service February 29, 2020 Assessment & Plan (1) Volvulus: pt is a 84 year-old male who was admitted to hospital for colon volvulus which was decompressed during last admission. - no abdominal pain - no n/v - +diarrhea this morning - tolerating clears - palliative care consulted Plan: no acute surgical intervention required at this time continue medical management Dr. Blood covering this weekend, has seen patient during last admission and recommending transfer to tertiary center if patient wants surgery Dr. Loco has seen and examined pt, developed plan. Subjective patient with no abdominal pain , n/v had diarrhea after liquids this morning, "seemed to go right through me" Physical Exam Constitutional: WD/WN, vitals as above no acute distress elderly male in no distress Respiratory: normal respiratory effort; no respiratory distress Gastrointestinal (Abdomen): Inspection/Auscultation: abdomen normal to inspection; abdomen not distended Percussion/Palpation: abdomen soft; abdomen nontender, no guarding and abdomen not rigid Skin: no rashes, warm and dry Psychiatric: Orientation: alert and oriented x 3 Results & Data Vital Signs (Past 12 Hours) Vital Signs Temp Pulse Resp BP Pulse Ox 02/29/20 07:34 36.6 C 66 18 125/69 99 Laboratory Results 02/28/20 Range/Units 06:54 Prealbumin 7.1 L (20-40) mg/dl
--- NOTE | 2020-02-29 12:15 | Hospitalist Progress Note ---
Date of Service February 29, 2020 Assessment & Plan (1) Weakness: ASSESSMENT AND PLAN: This is an 84-year-old male presents with poor appetite, failure to thrive and some questionable tachypnea and shakiness at home. 1. Tachypnea and shakiness at home. Currently, the patient is asymptomatic and back to his baseline. Feeling a lo better 2. Recent volvulus. There is recurrence there is plan for sigmoidectomy, as per the previous recent admission to be done at the tertiary care if patient and family agrees. Currently, seems to be stable. 3. Myelodysplastic syndrome with history of anemia and thrombocytopenia. Gets Procrit shots weekly and also platelet transfusions, platelet count is low 4. Hypokalemia, we will replace. 5. Acute kidney injury versus chronic kidney disease stage III, since October. In October his creatinine was 0.9. Since then, it is worsening, it is holding around 1.3-1.5, currently 1.5. 6. Poor appetite, failure to thrive, lost 60 pounds in last 1 year, palliative care on case. Stop Prucalopride-Causes Diarrhea 7. Generalized weakness. PT and OT. As per not much mobility, uses walker. 8. High blood pressure. Continue Toprol-XL and losartan. 9. History of prostate cancer had radiation treatment. 10. Coronary artery disease status post CABG, status post stent on Toprol-XL currently. 11. Deep venous thrombosis prophylaxis, sequential compression devices for now. Disposition: Medical floor. PT and OT prior to discharge. Social Service to help with discharge planning. Code status: DNR/DNI as per discussion with the patient and the . Palliative care on case Surgery to see ROS-No Headache, No Visual Changes, No Nausea, No Vomiting, No Fever, No Chills, No Neck Pain or Stiffness, No Chest Pain, No Palpitations, No SOB, No SANTIAGO, No Cough, No Sputum, No Wheezing, No Abdominal Pain, No Diarrhea, No Hematemesis, No Hemoptysis, No Unexpected Weight Loss, No Flank pain, No Melena, No Hematochezia, No Frequency, No Urgency, No Burning, No Hematuria, No Rashes, No Diaphoresis. Appetite is Normal, Feels a lot better. Physical Exam Gen-AAO x 3, NAD, Afebrile, Weak, [place] Head-NCAT, EOMI, PERRLA, Anicteric Sclera, No Posterior Pharyngeal Erythema Neck-Supple, No JVD, No Thyromegaly, No Masses, No LAD, No Bruits Lungs-Clear to Auscultation Bilaterally, No Rales, No Rhonchi, No Wheezing, No Crepitus Chest-No S4, +S1, +S2, No S3, No Murmurs, No Rubs, No Gallops, No Ectopy Abdomen-Soft, Bowel Sounds Present, Non Tender, Non Distended, No Hepatomegaly, No Splenomegaly, No Palpable Masses, No Rebound, No Rigidity, No Guarding Musculoskeletal-Full Range of Motion Bilaterally, No CVAT Extremities-No Cyanosis, No Clubbing, No Edema Nuero-Cranial Nerves II-XII grossly intact, Motor WNL, DTRs WNL, Strength WNL, Non Focal Psych-Normal Mood Admission and Anticipated Discharge Date Admission Date: February 28, 2020 Anticipated date of discharge: 03/01/20 Results & Data Results & Data ([facility]) Vital Signs (Past 12 Hours) Vital Signs Temp Pulse Resp BP Pulse Ox 02/29/20 07:34 36.6 C 66 18 125/69 99
--- NOTE | 2020-02-29 14:05 | Palliative Care Progress Note ---
Date of Service February 29, 2020 Assessment & Plan (1) Palliative care encounter: Patient is an 84-year-old gentleman who is a fair historian. His is equally a fair historian. Spoke with patient's [id number] Radha, [phone] who confirmed the patient has been continuing to receive Motegrity, a prokinetic agent-this may be contributing to his increased loose stools. Patient was having increased shortness of breath at home prior to admission, went to see Dr. Oliva on Tuesday when he was noted to have increased lower extremity edema. Daughter reports that his BNP was elevated above 16,000 and he was hypotensive. Dr. Oliva had adjusted his losartan-if blood pressure was low he was not to take it, if it was mildly elevated he was supposed to take 25 mg and if it was over 140 he was supposed to take a whole 50 mg tab. He was also started on Lasix and likely received only 1 dose on Tuesday morning. - Patient was hospitalized earlier this month for sigmoid volvulus-he underwent colonoscopy for decompression which was successful. Patient denies abdominal pain or bloating since discharge on 02/21. -Patient with pancytopenia due to MDS-he receives weekly platelet transfusions. His platelet count was reportedly 16K on Tuesday prior to transfusion. Platelet count 24K on labs drawn yesterday -Patient's [id number] removed Motegrity from his pillbox. Discussed with [id number] that patient may require Motegrity to combat constipation due to volvulus-he will need close monitoring of his bowel movements. Patient did receive some IV fluids for hypotension in the emergency room and blood pressure improved. He has diuresed well since admission-trace pedal edema on exam today -Patient states he does not have advanced directives, that his and children would be his medical decision makers. Current's CODE STATUS is DNR/DNI (2) Shortness of breath: Improved per patient. Patient with hypotension on admission likely due to dehydration due to chronic diarrhea. Gets short of breath with minimal exertion, deconditioned. Was able to ambulate 175 feet using a rolling walker- gait was noted to be slow by PT. (3) MDS (myelodysplastic syndrome): Weekly platelet transfusions, monitor CBCs (4) Diarrhea: Has been an ongoing issue since December 2017-did have a history of C. difficile which resolved. On review of home meds patient is taking Motegrity which is a prokinetic agent and likely contributing if not causing the diarrhea. Patient is currently not on Motegrity-has had 1-2 bowel movement per nursing documentation. (5) Hypotension: Responded to IV fluids-could be partially due to to volume depletion given ongoing diarrhea. Patient's blood pressure within acceptable limits over the past 24 hours (6) Weakness: Patient thin and cachectic, likely due to protein calorie malnutrition, frequent diarrhea with poor appetite. Patient feels if the diarrhea would stop he would be doing a lot better. (7) Hypokalemia: Likely due to GI losses, patient on potassium supplementation at home. Potassium 2.9 this a.m. -receiving IV and PO potassium -BMP ordered for the a.m. Subjective Patient awake and alert, states he is feeling better today. Patient reports he still having frequent loose stools, nursing flow sheets do not collaborate with patient's report. Patient with hypokalemia-being repleted, labs pending for tomorrow a.m. Patient sats are 99% on room air, was able to ambulate with PT 175 feet with rolling walker. Patient's lower extremity edema has improved, he has trace pedal edema. Discussed the possibility of inpatient rehab-patient stated he would prefer to go home and have home PT/OT. Review of Systems Review of Systems: Patient denies fever, chills, chest pain, increased shortness of breath, or abdominal pain. Positive for weakness, fatigue and loose bowel movements. Physical Exam Physical Exam: PE: Patient sitting in chair at side of bed, skin color improved, appears less fatigued, NAD HEENT, patient very [place], EOMI Respirations: Clear breath sounds bilaterally, sats 99% on room air. No shortness of breath with conversation CV: Regular rate, lower extremity edema decreased, with trace pedal edema on exam today Abdomen: Soft, nontender, no increased distention Extremities: Generalized weakness Neuro: Alert and oriented x3 Results & Data Vital Signs (Past 12 Hours) Vital Signs Temp Pulse Resp BP Pulse Ox 02/29/20 07:34 97.9 F 66 18 125/69 99 PG Care Time/CCT Total # of Minutes Spent Total Time Spent with Patient: Total time spent 40 minutes with greater than 50% of the time spent at bedside assessing patient's current status and speaking w ith [id number] by phone. Coding Level of Care Code 59943 Subseq Hosp Care Lvl 3 Diagnoses Palliative care encounter Z51.5 Shortness of breath R06.02 MDS (myelodysplastic syndrome) D46.9 Diarrhea R19.7 Hypotension I95.9 Weakness R53.1 Hypokalemia E87.6 Time Spent (min) 40
[2020-02-29] MEDS: PSYLLIUM 58.6% POWDER PACKET PO SCH (19:28)
[2020-02-29] MEDS: MIRTAZAPINE TAB 15 MG TAB PO SCH (20:55)
[2020-02-29] MEDS: CETIRIZINE HCL 10 MG TABLET PO SCH (20:55)
[2020-02-29] MEDS: FLUTICASONE PROPIONATE NA SPR 16 GM BTL SCH (20:55)
[2020-03-01] MEDS: D5W AND NSS 1,000 ML IV SCH ×2 (03:09→21:49)
[2020-03-01] MEDS ORDERED: LOPERAMIDE HCL 2 MG CAP PO PRN (09:10)
--- NOTE | 2020-03-01 09:13 | Hospitalist Progress Note ---
Date of Service March 01, 2020 Assessment & Plan (1) Weakness: ASSESSMENT AND PLAN: This is an 84-year-old male presents with poor appetite, failure to thrive and some questionable tachypnea and shakiness at home. 1. Tachypnea and shakiness at home. Currently, the patient is asymptomatic and back to his baseline. Feeling a lot better 2. Recent volvulus. There is recurrence there was a plan for sigmoidectomy, as per the previous recent admission to be done at the tertiary care if patient and family agrees. Currently, seems to be stable. Patient tells me he doesn't want it 3. Myelodysplastic syndrome with history of anemia and thrombocytopenia. Gets Procrit shots weekly and also platelet transfusions, platelet count is low 4. Hypokalemia, we will replace. 5. Acute kidney injury versus chronic kidney disease stage III, since October. In October his creatinine was 0.9. Since then, it is worsening, it is holding around 1.3-1.5, currently 1.5. 6. Poor appetite, failure to thrive, lost 60 pounds in last 1 year, palliative care on case. Stop Prucalopride-Causes Diarrhea, Severe Protein Calorie Malnutrition PAB 7.1 7. Generalized weakness. PT and OT. As per not much mobility, uses walker. 8. High blood pressure. Continue Toprol-XL and losartan. 9. History of prostate cancer had radiation treatment. 10. Coronary artery disease status post CABG, status post stent on Toprol-XL currently. 11. Deep venous thrombosis prophylaxis, sequential compression devices for now. Disposition: Medical floor. PT and OT prior to discharge. Social Service to help with discharge planning. Code status: DNR/DNI as per discussion with the patient and the . Palliative care on case Surgery to see ROS-No Headache, No Visual Changes, No Nausea, No Vomiting, No Fever, No Chills, No Neck Pain or Stiffness, No Chest Pain, No Palpitations, No SOB, No SANTIAGO, No Cough, No Sputum, No Wheezing, No Abdominal Pain, + Diarrhea, No Hematemesis, No Hemoptysis, No Unexpected Weight Loss, No Flank pain, No Melena, No Hem atochezia, No Frequency, No Urgency, No Burning, No Hematuria, No Rashes, No Diaphoresis. Appetite is Normal, Feels a lot better. Physical Exam Gen-AAO x 3, NAD, Afebrile, Weak, [place] Head-NCAT, EOMI, PERRLA, Anicteric Sclera, No Posterior Pharyngeal Erythema Neck-Supple, No JVD, No Thyromegaly, No Masses, No LAD, No Bruits Lungs-Clear to Auscultation Bilaterally, No Rales, No Rhonchi, No Wheezing, No Crepitus Chest-No S4, +S1, +S2, No S3, No Murmurs, No Rubs, No Gallops, No Ectopy Abdomen-Soft, Bowel Sounds Present, Non Tender, Non Distended, No Hepatomegaly, No Splenomegaly, No Palpable Masses, No Rebound, No Rigidity, No Guarding Musculoskeletal-Full Range of Motion Bilaterally, No CVAT Extremities-No Cyanosis, No Clubbing, No Edema Nuero-Cranial Nerves II-XII grossly intact, Motor WNL, DTRs WNL, Strength WNL, Non Focal Psych-Normal Mood Admission and Anticipated Discharge Date Admission Date: February 28, 2020 Anticipated date of discharge: 03/01/20 Results & Data Results & Data ([facility]) Vital Signs (Past 12 Hours) Vital Signs Temp Pulse Resp BP Pulse Ox 03/01/20 06:33 36.4 C L 60 14 104/51 L 98 03/01/20 00:48 36.4 C L 62 14 131/63 99
[2020-03-01] MEDS: PSYLLIUM 58.6% POWDER PACKET PO SCH (10:29)
[2020-03-01] MEDS: ASCORBIC ACID 500 MG TAB PO SCH (10:30)
[2020-03-01] MEDS: POTASSIUM CHLORIDE 20 MEQ TABCR PO SCH ×2 (10:31→21:52)
[2020-03-01] MEDS: LOSARTAN POTASSIUM 50 MG TAB PO SCH (10:31)
[2020-03-01] MEDS: CEROVITE ADV FORMULA TAB PO SCH (10:31)
[2020-03-01] MEDS: METOPROLOL SUCC 25MG EXT REL TAB PO SCH (10:32)
[2020-03-01] MEDS: MULTIVITAMIN TAB PO SCH (10:32)
[2020-03-01] MEDS: MAGNESIUM OXIDE 400 MG TAB PO SCH ×2 (10:32→21:52)
[2020-03-01 10:36] LABS: BUN Creatinine Ratio 15.4 (10-20); Calcium 7.8 mg/dl (8.5-10.1); Creatinine Clr Calc Pharmacy 39.3 ml/min; Est GFR (African American) 67.8; Est GFR (Non-African American) 58.5
[2020-03-01 10:43] LABS: Hematocrit (blood only) 26.7 % (42-52); Hemoglobin 8.1 g/dL (14.0-18.0); Mean Corpuscular Hemoglobin 24.1 pg (25-34); Mean Corpuscular Volume 79.5 fL (80-100); Nucleated RBC # (auto) 0.09 K/uL (0-0); Nucleated RBC % (auto) 3.3 %; RDW Coefficient of Variation 21.3 % (11.5-14.5); RDW Standard Deviation 58.3 fL (36.4-46.3); Red Blood Count 3.36 M/uL (4.7-6.1); White Blood Count 2.83 K/uL (4.8-10.8)
[2020-03-01 10:55] LABS: Mean Corpuscular Hgb Conc 30.3 g/dL (32-36)
[2020-03-01 10:56] LABS: Platelet Count 17 K/uL (130-400)
[2020-03-01 10:57] LABS: Platelet Estimate SIGNIFIC DECREASED (Normal)
[2020-03-01] MEDS: FLUTICASONE PROPIONATE NA SPR 16 GM BTL SCH (21:50)
[2020-03-01] MEDS: CETIRIZINE HCL 10 MG TABLET PO SCH (21:51)
[2020-03-01] MEDS: MIRTAZAPINE TAB 15 MG TAB PO SCH (21:53)
[2020-03-02 06:36] LABS: Hematocrit (blood only) 22.8 % (42-52); Hemoglobin 7.5 g/dL (14.0-18.0); Mean Corpuscular Hemoglobin 25.3 pg (25-34); Mean Corpuscular Hgb Conc 32.9 g/dL (32-36); Mean Corpuscular Volume 76.8 fL (80-100); Nucleated RBC # (auto) 0.09 K/uL (0-0); Platelet Count 14 K/uL (130-400); Platelet Estimate SIGNIFIC DECREASED (Normal); RDW Coefficient of Variation 21.1 % (11.5-14.5); RDW Standard Deviation 56.6 fL (36.4-46.3); Red Blood Count 2.97 M/uL (4.7-6.1); White Blood Count 3.12 K/uL (4.8-10.8)
[2020-03-02 06:38] LABS: Albumin Level 1.8 gm/dl (3.4-5.0); Calcium 7.2 mg/dl (8.5-10.1); Creatinine Clr Calc Pharmacy 47.1 ml/min; Est GFR (African American) 84.4; Est GFR (Non-African American) 72.8; Potassium 3.3 mmol/L (3.5-5.1)
[2020-03-02 06:41] LABS: Albumin Globulin Ratio 0.5 (0.9-2); Bilirubin,Total 0.7 mg/dl (0.2-1); Globulin 3.7 gm/dl (2.5-4.0); Total Protein 5.5 gm/dl (6.4-8.2)
[2020-03-02] MEDS: POTASSIUM CHLORIDE 20 MEQ TABCR PO SCH ×2 (08:02→20:02)
[2020-03-02] MEDS: METOPROLOL SUCC 25MG EXT REL TAB PO SCH (08:02)
[2020-03-02] MEDS: MAGNESIUM OXIDE 400 MG TAB PO SCH ×2 (08:02→20:02)
[2020-03-02] MEDS: MULTIVITAMIN TAB PO SCH (08:02)
[2020-03-02] MEDS: ASCORBIC ACID 500 MG TAB PO SCH (08:02)
[2020-03-02] MEDS: LOSARTAN POTASSIUM 50 MG TAB PO SCH (08:03)
[2020-03-02] MEDS: CEROVITE ADV FORMULA TAB PO SCH (08:03)
[2020-03-02] MEDS: PSYLLIUM 58.6% POWDER PACKET PO SCH (08:03)
--- NOTE | 2020-03-02 10:29 | Hospitalist Progress Note ---
Date of Service March 02, 2020 Assessment & Plan (1) Weakness: ASSESSMENT AND PLAN: This is an 84-year-old male presents with poor appetite, failure to thrive and some questionable tachypnea and shakiness at home. 1. Tachypnea and shakiness at home. Currently, the patient is asymptomatic and back to his baseline. Feeling a lot better 2. Recent volvulus. There is recurrence there was a plan for sigmoidectomy, as per the previous recent admission to be done at the tertiary care if patient and family agrees. Currently, seems to be stable. Patient tells me he doesn't want surgery 3. Myelodysplastic syndrome with history of anemia and thrombocytopenia. Gets Procrit shots weekly and also platelet transfusions, platelet count is 14 today 4. Hypokalemia, we will replace. 5. Acute kidney injury versus chronic kidney disease stage III, since October. In October his creatinine was 0.9. Since then, it is worsening, it is holding around 1.3-1.5, currently 1.5. 6. Poor appetite, failure to thrive, lost 60 pounds in last 1 year, palliative care on case. Stop Prucalopride-Causes Diarrhea, Severe Protein Calorie Malnutrition PAB 7.1 7. Generalized weakness. PT and OT. As per not much mobility, uses walker. 8. High blood pressure. Continue Toprol-XL and losartan. 9. History of prostate cancer had radiation treatment. 10. Coronary artery disease status post CABG, status post stent on Toprol-XL currently. 11. Deep venous thrombosis prophylaxis, sequential compression devices for now. Disposition: Medical floor. PT and OT prior to discharge. Social Service to help with discharge planning. Code status: DNR/DNI as per discussion with the patient and the . Palliative care on case Surgery saw him Transfuse Platelets today ROS-No Headache, No Visual Changes, No Nausea, No Vomiting, No Fever, No Chills, No Neck Pain or Stiffness, No Chest Pain, No Palpitations, No SOB, No SANTIAGO, No Cough, No Sputum, No Wheezing, No Abdominal Pain, + Diarrhea, No Hematemesis, No Hemoptysis, No Unexpected Weight Loss, No Flank pain, No Melena, No Hematochezia, No Frequency, No Urgency, No Burning, No Hematuria, No Rashes, No Diaphoresis. Appetite is Normal, Feels a lot better. Physical Exam Gen-AAO x 3, NAD, Afebrile, Weak, [place] Head-NCAT, EOMI, PERRLA, Anicteric Sclera, No Posterior Pharyngeal Erythema Neck-Supple, No JVD, No Thyromegaly, No Masses, No LAD, No Bruits Lungs-Clear to Auscultation Bilaterally, No Rales, No Rhonchi, No Wheezing, No Crepitus Chest-No S4, +S1, +S2, No S3, No Murmurs, No Rubs, No Gallops, No Ectopy Abdomen-Soft, Bowel Sounds Present, Non Tender, Non Distended, No Hepatomegaly, No Splenomegaly, No Palpable Masses, No Rebound, No Rigidity, No Guarding Musculoskeletal-Full Range of Motion Bilaterally, No CVAT Extremities-No Cyanosis, No Clubbing, No Edema Nuero-Cranial Nerves II-XII grossly intact, Motor WNL, DTRs WNL, Strength WNL, Non Focal Psych-Normal Mood Admission and Anticipated Discharge Date Admission Date: February 28, 2020 Anticipated date of discharge: 03/01/20 Results & Data [facility] ([facility]) Vital Signs (Past 12 Hours) Vital Signs Temp Pulse Resp BP Pulse Ox 03/02/20 07:02 36.6 C 64 14 134/65 96 03/01/20 23:56 36.7 C 68 14 134/71 97
[2020-03-02] MEDS: D5W AND NSS 1,000 ML IV SCH ×2 (15:08→20:00)
[2020-03-02] MEDS: FLUTICASONE PROPIONATE NA SPR 16 GM BTL SCH (20:02)
[2020-03-02] MEDS: MIRTAZAPINE TAB 15 MG TAB PO SCH (20:02)
[2020-03-02] MEDS: CETIRIZINE HCL 10 MG TABLET PO SCH (20:02)
[2020-03-02 22:33] LABS: Cdiff Antigen Positive
[2020-03-02 22:34] LABS: Cdiff Toxin A+B Positive Cdiff Toxin (Negative)
[2020-03-02] MEDS: VANCOMYCIN HCL 125 MG/2.5ML SOLN PO SCH (23:06)
[2020-03-02] MEDS: RASPBERRY SYRUP 5 ML UDP PO SCH (23:06)
[2020-03-03] MEDS: RASPBERRY SYRUP 5 ML UDP PO SCH ×4 (05:07→23:43)
[2020-03-03] MEDS: VANCOMYCIN HCL 125 MG/2.5ML SOLN PO SCH ×4 (05:07→23:43)
[2020-03-03 06:33] LABS: Nucleated RBC # (auto) 0.07 K/uL (0-0); Nucleated RBC % (auto) 1.8 %
[2020-03-03 06:49] LABS: Hematocrit (blood only) 22.3 % (42-52); Hemoglobin 7.3 g/dL (14.0-18.0); Mean Corpuscular Volume 76.4 fL (80-100); Platelet Count 25 K/uL (130-400); RDW Standard Deviation 56.3 fL (36.4-46.3); Red Blood Count 2.92 M/uL (4.7-6.1); White Blood Count 3.71 K/uL (4.8-10.8)
[2020-03-03 07:03] LABS: Mean Corpuscular Hgb Conc 32.7 g/dL (32-36); Platelet Estimate SIGNIFIC DECREASED (Normal)
[2020-03-03 07:08] LABS: BUN Creatinine Ratio 15.6 (10-20); Calcium 7.3 mg/dl (8.5-10.1); Creatinine Clr Calc Pharmacy 48.1 ml/min; Est GFR (African American) 86.6; Est GFR (Non-African American) 74.7; Potassium 3.1 mmol/L (3.5-5.1)
[2020-03-03] MEDS: MAGNESIUM OXIDE 400 MG TAB PO SCH ×2 (08:01→20:18)
[2020-03-03] MEDS: ASCORBIC ACID 500 MG TAB PO SCH (08:01)
[2020-03-03] MEDS: POTASSIUM CHLORIDE 20 MEQ TABCR PO SCH ×2 (08:01→20:17)
[2020-03-03] MEDS: METOPROLOL SUCC 25MG EXT REL TAB PO SCH (08:02)
[2020-03-03] MEDS: CEROVITE ADV FORMULA TAB PO SCH (08:02)
[2020-03-03] MEDS: MULTIVITAMIN TAB PO SCH (08:02)
[2020-03-03] MEDS: PSYLLIUM 58.6% POWDER PACKET PO SCH (08:02)
[2020-03-03] MEDS: LOSARTAN POTASSIUM 50 MG TAB PO SCH (08:02)
[2020-03-03] MEDS ORDERED: EPOETIN ALFA 40,000 UNITS/ML VIAL SQ SCH (09:00)
[2020-03-03] MEDS ORDERED: EPOETIN ALFA 20,000 UNITS/ML VIAL SQ SCH (09:00)
--- NOTE | 2020-03-03 10:03 | Hospitalist Progress Note ---
Date of Service March 03, 2020 Assessment & Plan (1) Weakness: ASSESSMENT AND PLAN: This is an 84-year-old male presents with poor appetite, failure to thrive and some questionable tachypnea and shakiness at home. 1. Tachypnea and shakiness at home. Currently, the patient is asymptomatic and back to his baseline. Feeling a lot better 2. Recent volvulus. There is recurrence there was a plan for sigmoidectomy, as per the previous recent admission to be done at the tertiary care if patient and family agrees. Currently, seems to be stable. Patient tells me he doesn't want surgery 3. Myelodysplastic syndrome with history of anemia and thrombocytopenia. Gets Procrit shots weekly and also platelet transfusions, platelet count is 25 today, Hb 7.3 4. Hypokalemia, we will replace. 5. Acute kidney injury versus chronic kidney disease stage III, since October. In October his creatinine was 0.9. Since then, it is worsening, it is holding around 1.3-1.5, currently 1.5. 6. Poor appetite, failure to thrive, lost 60 pounds in last 1 year, palliative care on case. Stop Prucalopride-Causes Diarrhea, Severe Protein Calorie Malnutrition PAB 7.1 7. CDiff Colitis +Screen-PO Vanco started. 8. High blood pressure. Continue Toprol-XL and losartan. 9. History of prostate cancer had radiation treatment. 10. Coronary artery disease status post CABG, status post stent on Toprol-XL currently. 11. Deep venous thrombosis prophylaxis, sequential compression devices for now. Disposition: Medical floor. PT and OT prior to discharge. Social Service to help with discharge planning. Code status: DNR/DNI as per discussion with the patient and the . Palliative care on case Surgery saw him Monitor Daily Labs ROS-No Headache, No Visual Changes, No Nausea, No Vomiting, No Fever, No Chills, No Neck Pain or Stiffness, No Chest Pain, No Palpitations, No SOB, No SANTIAGO, No Cough, No Sputum, No Wheezing, No Abdominal Pain, No Diarrhea, No Hematemesis, No Hemoptysis, No Unexpected Weight Loss, No Flank pain, No Melena, No H ematochezia, No Frequency, No Urgency, No Burning, No Hematuria, No Rashes, No Diaphoresis. Appetite is Normal, Feels a lot better. Physical Exam Gen-AAO x 3, NAD, Afebrile, Weak, [place] Head-NCAT, EOMI, PERRLA, Anicteric Sclera, No Posterior Pharyngeal Erythema Neck-Supple, No JVD, No Thyromegaly, No Masses, No LAD, No Bruits Lungs-Clear to Auscultation Bilaterally, No Rales, No Rhonchi, No Wheezing, No Crepitus Chest-No S4, +S1, +S2, No S3, No Murmurs, No Rubs, No Gallops, No Ectopy Abdomen-Soft, Bowel Sounds Present, Non Tender, Non Distended, No Hepatomegaly, No Splenomegaly, No Palpable Masses, No Rebound, No Rigidity, No Guarding Musculoskeletal-Full Range of Motion Bilaterally, No CVAT Extremities-No Cyanosis, No Clubbing, No Edema Nuero-Cranial Nerves II-XII grossly intact, Motor WNL, DTRs WNL, Strength WNL, Non Focal Psych-Normal Mood Admission and Anticipated Discharge Date Admission Date: February 28, 2020 Anticipated date of discharge: 03/01/20 Results & Data Results & Data ([facility]) Vital Signs (Past 12 Hours) Vital Signs Temp Pulse Resp BP Pulse Ox 03/03/20 07:25 36.6 C 59 L 16 119/57 L 96 03/02/20 23:42 36.9 C 70 18 126/64 97
[2020-03-03] MEDS: POTASSIUM CHLORIDE / WTR 10 MEQ/100 ML PLCT IV SCH ×4 (11:17→14:48)
[2020-03-03] MEDS: D5W AND NSS 1,000 ML IV SCH (14:18)
--- NOTE | 2020-03-03 16:54 | Surgery Progress Note ---
Date of Service pt is doing fine, no abdominal pain, no nausea, no vomiting,no fever, passed BM, March 03, 2020 Assessment & Plan (1) Volvulus: pt is a 84 year-old male who was admitted to hospital for colon volvulus which was decompressed during last admission. - no abdominal pain - no n/v - +diarrhea this morning - tolerating clears - palliative care consulted Plan: no acute surgical intervention required at this time continue medical management Dr. Blood covering this weekend, has seen patient during last admission and recommending transfer to tertiary center if patient wants surgery Dr. Loco has seen and examined pt, developed plan. 03/03/2020 4:53PM stable, no surgical indication now, sign off today, please call with questions, Thanks, Physical Exam Constitutional: WD/WN, vitals as above well developed and well nourished Eyes: PERRL, conjunctivae normal, anicteric sclerae ENMT: external ear and nose normal, oropharynx normal Neck: trachea midline, no thyromegaly Respiratory: normal respiratory effort, lungs clear to auscultation Cardiovascular: RRR, no murmur, no edema Gastrointestinal (Abdomen): normal bowel sounds, soft, nontender, no hepatosplenomegaly Percussion/Palpation: abdomen soft NT, ND, BS + Musculoskeletal: Head/Neck/Chest: head atraumatic Skin: no rashes, warm and dry Neurologic: awake Psychiatric: Orientation: alert and oriented to place Results & Data Vital Signs (Past 12 Hours) Vital Signs Temp Pulse Resp BP Pulse Ox 03/03/20 15:40 36.4 C L 60 16 147/67 H 95 03/03/20 07:25 36.6 C 59 L 16 119/57 L 96 Laboratory Results Abnormal lab results 03/02/20 03/03/20 03/03/20 Range/Units 20:30 06:12 06:12 WBC 3.71 L (4.8-10.8) K/uL RBC 2.92 L (4.7-6.1) M/uL Hgb 7.3 L (14.0-18.0) g/dL Hct 22.3 L (42-52) % MCV 76.4 L (80-100) fL RDW Std Deviation 56.3 H (36.4-46.3) fL RDW Coeff of Marguerite 21.0 H (11.5-14.5) % Plt Count 25 L* D (130-400) K/uL Absolute Nucleated RBC 0.07 H (0-0) K/uL Potassium 3.1 L (3.5-5.1) mmol/L Chloride 112 H (98-107) mmol/L Carbon Dioxide 20 L (21-32) mmol/L Calcium 7.3 L (8.5-10.1) mg/dl Stl C. diff Tox B Gene Positive Cdiff Gene H (Neg) Stl C.difficile Tox A&B Positive Cdiff Toxin A* (Negative)
[2020-03-03] MEDS: FLUTICASONE PROPIONATE NA SPR 16 GM BTL SCH (20:17)
[2020-03-03] MEDS: MIRTAZAPINE TAB 15 MG TAB PO SCH (20:18)
[2020-03-03] MEDS: CETIRIZINE HCL 10 MG TABLET PO SCH (20:19)
[2020-03-04] MEDS: RASPBERRY SYRUP 5 ML UDP PO SCH ×3 (05:48→17:36)
[2020-03-04] MEDS: VANCOMYCIN HCL 125 MG/2.5ML SOLN PO SCH ×3 (05:48→17:36)
[2020-03-04 07:25] LABS: INR 1.3 (0.9-1.1); Prothrombin Time 13.5 Seconds (9.0-12.0)
[2020-03-04 07:43] LABS: Acanthocytes 1+; Basophils # (auto) 0.01 K/uL (0-0.2); Basophils % (auto) 0.4 %; Dohle Bodies 1+; Echinocytes 1+; Giant Platelets 1+; Hematocrit (blood only) 21.6 % (42-52); Hemoglobin 6.9 g/dL (14.0-18.0); Hypochromasia Present; Immature Granulocytes # (auto) 0.05 K/uL (0.00-0.02); Immature Granulocytes % (auto) 1.8 %; Lymphocytes # (auto) 1.04 K/uL (1.2-3.4); Lymphocytes % (auto) 37.7 %; Mean Corpuscular Hemoglobin 24.8 pg (25-34); Mean Corpuscular Hgb Conc 31.9 g/dL (32-36); Mean Corpuscular Volume 77.7 fL (80-100); Monocytes # (auto) 0.42 K/uL (0.11-0.59); Monocytes % (auto) 15.2 %; Neutrophils # (auto) 1.24 K/uL (1.4-6.5); Neutrophils % (auto) 44.9 %; Nucleated RBC # (auto) 0.04 K/uL (0-0); Nucleated RBC % (auto) 1.6 %; Platelet Count 20 K/uL (130-400); Platelet Estimate SIGNIFIC DECREASED (Normal); Polychromasia 1+; RDW Coefficient of Variation 20.9 % (11.5-14.5); RDW Standard Deviation 56.7 fL (36.4-46.3); Red Blood Count 2.78 M/uL (4.7-6.1); Tear Drop Cells 1+; White Blood Count 2.76 K/uL (4.8-10.8)
[2020-03-04] MEDS ORDERED: SODIUM CHLORIDE 0.9% 250 ML IV PRN ×2 (07:45→08:42)
--- NOTE | 2020-03-04 07:51 | Discharge Summary ---
Date of Service March 04, 2020 Admission HPI Per Admitting Provider 84-year-old male with past medical history significant for CAD status post CABG x2, status post stent, history of senile macular degeneration, blindness in left eye, chronic diarrhea of unknown origin, hypertension, lung nodules, hyperlipidemia, hypokalemia, lost over 60 pounds in last 1 year, obstructive sleep apnea, not using CPAP because he lost weight, history of allergic rhinitis off nasal steroid due to history of epistaxis, history of prostate cancer and history of radiation therapy in 2008, myelodysplastic syndrome with chronic pancytopenia, receives Procrit injection every week as well as platelets transfusion with Hematology/Oncology, recently saw GI and was started him on multigrain 2 grams daily for his 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 The patient did okay and discharged home. Today was brought in by the because patient seems to be leaning on the chair and somewhat tachypneic and shaky. She was worried and brought him to the hospital. At that time he seemed to be somewhat confused but is currently back to his baseline. The patient is resting comfortably and hemodynamically stable. Has poor appetite, not ambulating much, uses walker. Chronic diarrhea, currently no abdominal pain, abdomen is soft. No nausea, no vomiting, no chest pain, no shortness of breath. Currently no fever. Denies any headaches. Blind in left eye. No earache, no runny nose, no sore throat. He sometimes has difficulty swallowing. Admission Exam Per Admitting Provider GENERAL: The patient is old and frail, not in acute distress. VITAL SIGNS: Temperature 36.8, pulse 79, respiratory rate 16, blood pressure 114/73, oxygen 92% on room air. HEENT: No pallor, no icterus. Pupils equal, round, and reactive to light. Oral mucosa dry. NECK: No JVD, no neck masses. CARDIOVASCULAR: S1, S2, regular rate and rhythm, no murmur, no gallop. RESPIRATORY SYSTEM: Normal AP diameter. No accessory muscle use. No wheezing, no crackles. ABDOMEN: Soft, bowel sounds present, nontender. No distention. CENTRAL NERVOUS SYSTEM: Cranial nerves II-XII are grossly intact. Nonfocal. EXTREMITIES: Mild pedal edema, no erythema seen. Principal Diagnosis 1. Tachypnea and shakiness at home. 2. Volvulus. Resolved 3. Myelodysplastic syndrome 4. Hypokalemia 5. Acute kidney injury on chronic kidney disease stage III 6. Poor appetite, failure to thrive, Severe Protein Calorie Malnutrition 7. CDiff Colitis 8. High blood pressure. 9. History of prostate cancer had radiation treatment. 10. Coronary artery disease status post CABG Discharge Exam see below Discharge Data Allergies Allergy/AdvReac Type Severity Reaction Status Date / Time tetanus toxoid, adsorbed Allergy Severe SWELLING Verified 02/20/20 22:15 Penicillins Allergy Intermediate HIVES Verified 02/20/20 22:15 CHAZ Inhibitors AdvReac Intermediate COUGH Verified 02/20/20 22:15 erythromycin base AdvReac Intermediate DIARRHEA Verified 02/20/20 22:15 Consultations 02/28/20 00:50 ED Decision to Admit Stat 02/28/20 05:52 Consult Case Management - Discharge Planning Routine 02/28/20 06:22 Consult Palliative Care Routine 02/28/20 14:19 Consult General Surgery Routine Ordered Studies 02/27/20 22:36 CT abd pelvis wo con Urgent 02/27/20 22:39 CT head/brain wo con Urgent 03/04/20 03/04/20 03/04/20 Range/Units 06:56 06:56 06:56 WBC (4.8-10.8) K/uL RBC (4.7-6.1) M/uL Hgb (14.0-18.0) g/dL Hct (42-52) % MCV (80-100) fL MCH (25-34) pg MCHC (32-36) g/dL RDW Std Deviation (36.4-46.3) fL RDW Coeff of Marguerite (11.5-14.5) % Plt Count (130-400) K/uL Immature Gran % (Auto) % Neut % (Auto) % Lymph % (Auto) % Bledsoe % (Auto) % Eos % (Auto) % Baso % (Auto) % Neut # (Auto) (1.4-6.5) K/uL Lymph # (Auto) (1.2-3.4) K/uL Bledsoe # (Auto) (0.11-0.59) K/uL Eos # (Auto) (0-0.5) K/uL Baso # (Auto) (0-0.2) K/uL Immature Gran # (Auto) (0.00-0.02) K/uL Absolute Nucleated RBC (0-0) K/uL Nucleated RBC % (auto) % Dohle Bodies Platelet Estimate (Normal) Giant Platelets Polychromasia Hypochromasia Tear Drop Cells Echinocytes Acanthocytes (Spur) PT 13.5 H (9.0-12.0) Seconds INR 1.3 H (0.9-1.1) Sodium Pending Potassium Pending Chloride Pending Carbon Dioxide Pending Anion Gap Pending BUN Pending Creatinine Pending Est Cr Clr Drug Dosing Pending Est GFR ( Amer) Pending Est GFR (Non-Af Amer) Pending BUN/Creatinine Ratio Pending Glucose Pending Calcium Pending Ionized Calcium Pending Phosphorus Pending Magnesium Pending Total Bilirubin Pending AST Pending ALT Pending Alkaline Phosphatase Pending Total Protein Pending Albumin Pending Globulin Pending Albumin/Globulin Ratio Pending 03/04/20 Range/Units 06:56 WBC 2.76 L (4.8-10.8) K/uL RBC 2.78 L (4.7-6.1) M/uL Hgb 6.9 L* (14.0-18.0) g/dL Hct 21.6 L (42-52) % MCV 77.7 L (80-100) fL MCH 24.8 L (25-34) pg MCHC 31.9 L (32-36) g/dL RDW Std Deviation 56.7 H (36.4-46.3) fL RDW Coeff of Marguerite 20.9 H (11.5-14.5) % Plt Count 20 L* (130-400) K/uL Immature Gran % (Auto) 1.8 % Neut % (Auto) 44.9 % Lymph % (Auto) 37.7 % Bledsoe % (Auto) 15.2 % Eos % (Auto) 0.0 % Baso % (Auto) 0.4 % Neut # (Auto) 1.24 L (1.4-6.5) K/uL Lymph # (Auto) 1.04 L (1.2-3.4) K/uL Bledsoe # (Auto) 0.42 (0.11-0.59) K/uL Eos # (Auto) 0.00 (0-0.5) K/uL Baso # (Auto) 0.01 (0-0.2) K/uL Immature Gran # (Auto) 0.05 H (0.00-0.02) K/uL Absolute Nucleated RBC 0.04 H (0-0) K/uL Nucleated RBC % (auto) 1.6 % Dohle Bodies 1+ Platelet Estimate SIGNIFIC DECREASED (Normal) Giant Platelets 1+ Polychromasia 1+ Hypochromasia Present Tear Drop Cells 1+ Echinocytes 1+ Acanthocytes (Spur) 1+ PT (9.0-12.0) Seconds INR (0.9-1.1) Sodium Potassium Chloride Carbon Dioxide Anion Gap BUN Creatinine Est Cr Clr Drug Dosing Est GFR ( Amer) Est GFR (Non-Af Amer) BUN/Creatinine Ratio Glucose Calcium Ionized Calcium Phosphorus Magnesium Total Bilirubin AST ALT Alkaline Phosphatase Total Protein Albumin Globulin Albumin/Globulin Ratio Hospital Course (1) Weakness: ASSESSMENT AND PLAN: This is an 84-year-old male presents with poor appetite, failure to thrive and some questionable tachypnea and shakiness at home. 1. Tachypnea and shakiness at home. Currently, the patient is asymptomatic and back to his baseline. Feeling a lot better 2. Recent volvulus. There is recurrence there was a plan for sigmoidectomy, as per the previous recent admission to be done at the tertiary care if patient and family agrees. Currently, seems to be stable. Patient tells me he doesn't want surgery 3. Myelodysplastic syndrome with history of anemia and thrombocytopenia. Gets Procrit shots weekly and also platelet transfusions, platelet count is 25 today, Hb 7.3 4. Hypokalemia, we will replace. 5. Acute kidney injury versus chronic kidney disease stage III, since October. In October his creatinine was 0.9. Since then, it is worsening, it is holding around 1.3-1.5, currently 1.5. 6. Poor appetite, failure to thrive, lost 60 pounds in last 1 year, palliative care on case. Stop Prucalopride-Causes Diarrhea, Severe Protein Calorie Malnutrition PAB 7.1 7. CDiff Colitis +Screen-PO Vanco started. 8. High blood pressure. Continue Toprol-XL and losartan. 9. History of prostate cancer had radiation treatment. 10. Coronary artery disease status post CABG, status post stent on Toprol-XL currently. 11. Deep venous thrombosis prophylaxis, sequential compression devices for now. Disposition:Home today after RBCs and Platelets infused, f/u c Pall Care and Onc Code status: DNR/DNI as per discussion with the patient and the . Palliative care on case Surgery saw him and signed off-rec [facility] if he wants surgery Monitor Daily Labs ROS-No Headache, No Visual Changes, No Nausea, No Vomiting, No Fever, No Chills, No Neck Pain or Stiffness, No Chest Pain, No Palpitations, No SOB, No SANTIAGO, No Cough, No Sputum, No Wheezing, No Abdominal Pain, No Diarrhea, No Hematemesis, No Hemoptysis, No Unexpected Weight Loss, No Flank pain, No Melena, No Hematochezia, No Frequency, No Urgency, No Burning, No Hematuria, No Rashes, No Diaphoresis. Appetite is Normal, Feels a lot better. Physical Exam Gen-AAO x 3, NAD, Afebrile, Weak, IGIUGIG Head-NCAT, EOMI, PERRLA, Anicteric Sclera, No Posterior Pharyngeal Erythema Neck-Supple, No JVD, No Thyromegaly, No Masses, No LAD, No Bruits Lungs-Clear to Auscultation Bilaterally, No Rales, No Rhonchi, No Wheezing, No Crepitus Chest-No S4, +S1, +S2, No S3, No Murmurs, No Rubs, No Gallops, No Ectopy Abdomen-Soft, Bowel Sounds Present, Non Tender, Non Distended, No Hepatomegaly, No Splenomegaly, No Palpable Masses, No Rebound, No Rigidity, No Guarding Musculoskeletal-Full Range of Motion Bilaterally, No CVAT Extremities-No Cyanosis, No Clubbing, No Edema Nuero-Cranial Nerves II-XII grossly intact, Motor WNL, DTRs WNL, Strength WNL, Non Focal Psych-Normal Mood Total Time Total Time Spent Total Time Spent (In Minutes): 45 mins Total Time Includes: Examination of the Patient, Discharge Planning, Medication Reconciliation and Communication With Other Providers Discharge Plan Discharge Items Patient Disposition: Home - Home Health Services Reason For Visit: TACHYAPNEA AND SHAKINESS Discharge Diagnosis: 1. Tachypnea and shakiness at home. 2. Volvulus. Resolved 3. Myelodysplastic syndrome 4. Hypokalemia 5. Acute kidney injury on chronic kidney disease stage III 6. Poor appetite, failure to thrive, Severe Protein Calorie Malnutrition 7. CDiff Colitis 8. High blood pressure. 9. History of prostate cancer had radiation treatment. 10. Coronary artery disease status post CABG Condition on Discharge: Good Activity: As commented below Activity Comment: As Tolerated Lifting: None Bathing: No limitations Exercise/Sports: None Driving/Machine Use: None Weightbearing Comment: WBAT Non-emergency contact: Primary Care Provider and Oncologist Call non-emergency contact if: you have any medication questions Follow-up/Referrals: Edelmira Vargas MD [Primary Care Provider] - 03/13/20 11:20 am (03/13/2020 11:20 AM Provider Edelmira Oliva MD Department General Internal Medicine [facility] ) Diet: Regular Addtl Attending Provider Instructions: Follow up with Palliative Care and Home Health Pending Studies at Discharge: No Stand-Alone Forms: My [facility] Active Tax & Accounting, Smoking Cessation Medications and DC Order Prescriptions: New vancomycin 1,000 mg Recon Soln 125 mg PO Q6 Qty: 350 RF: 0 magnesium oxide 400 mg (241.3 mg magnesium) Tablet 400 mg PO BID Qty: 30 RF: 0 Continued simethicone [Gas Relief (simethicone)] 125 mg capsule 250 mg PO BID PRN (Reason: Other) RF: 0 ascorbate calcium (vitamin C) 500 mg tablet 500 mg PO DAILY RF: 0 acetaminophen 500 mg capsule 1,000 mg PO Q8H PRN (Reason: Pain) RF: 0 fluticasone propionate [Flonase Allergy Relief] 50 mcg/actuation spray,suspension 2 sprays INTNAS HS RF: 0 guaifenesin [Mucinex] 600 mg tablet extended release 12hr 600 mg PO BID PRN (Reason: Cough) RF: 0 Procrit 40,000 unit/mL Solution 60,000 unit subcut WK RF: 0 Ocuvite Eye Plus Multi 200-15-150 mcg Tablet 1 tab PO BID RF: 0 mirtazapine [Remeron] 30 mg tablet 30 mg PO HS RF: 0 multivitamin Tablet 1 tab PO QAM RF: 0 cetirizine [Zyrtec] 10 mg Tablet 10 mg PO QPM RF: 0 metoprolol succinate 25 mg Tablet Extended Release 24 Hr 25 mg PO QAM RF: 0 potassium chloride 20 mEq Tablet Extended Release 20 meq PO BID RF: 0 losartan 50 mg Tablet 50 mg PO QAM RF: 0 Boost 0.04 gram- 1 kcal/mL Liquid 1 ea PO TID RF: 0 Nutritional Shake Plus Liquid 1 ea PO BID RF: 0 Discontinued prucalopride 2 mg tablet 2 mg PO DAILY RF: 0 Discharge Orders: Discharge Order (Routine); Ordered 03/04/20 Ordered By: Woody Michael Admission Data Admit Date/Time: 02/28/20 01:39 Attending Provider: Woody Michael Admit Provider: Deshawn Kelly Primary Care Provider: Edelmira Vargas Other Providers: Deshawn Kelly ; Taylor Ackerman ; Melecio Blood
[2020-03-04 07:58] LABS: Albumin Level 1.8 gm/dl (3.4-5.0); BUN Creatinine Ratio 13.7 (10-20); Calcium 7.5 mg/dl (8.5-10.1); Creatinine Clr Calc Pharmacy 48.1 ml/min; Est GFR (African American) 86.6; Est GFR (Non-African American) 74.7; Magnesium 1.7 mg/dl (1.8-2.4); Potassium 3.4 mmol/L (3.5-5.1)
[2020-03-04 08:01] LABS: Albumin Globulin Ratio 0.5 (0.9-2); Bilirubin,Total 0.7 mg/dl (0.2-1); Globulin 3.7 gm/dl (2.5-4.0); Phosphorus 2.6 mg/dl (2.5-4.9); Total Protein 5.5 gm/dl (6.4-8.2)
[2020-03-04] MEDS: MAGNESIUM OXIDE 400 MG TAB PO SCH (08:56)
[2020-03-04] MEDS: METOPROLOL SUCC 25MG EXT REL TAB PO SCH (08:56)
[2020-03-04] MEDS: POTASSIUM CHLORIDE 20 MEQ TABCR PO SCH (08:56)
[2020-03-04] MEDS: MULTIVITAMIN TAB PO SCH (09:02)
[2020-03-04] MEDS: CEROVITE ADV FORMULA TAB PO SCH (09:02)
[2020-03-04] MEDS: PSYLLIUM 58.6% POWDER PACKET PO SCH (09:02)
[2020-03-04] MEDS: ASCORBIC ACID 500 MG TAB PO SCH (09:03)
[2020-03-04] MEDS: LOSARTAN POTASSIUM 50 MG TAB PO SCH (09:03)
== END 2020-03-04 17:50 | disposition home health service (06) ==
LOC: ED 22:23 → 3W 02-28 01:39 → INTOOBSV 02-28 01:39 → 3W 02-28 05:02